=== PATIENT | male | born 1975 | race African-American/Black ===

== ENCOUNTER 2016-10-07 08:14 | Inpatient (IN) | payer OTHER ==
[2016-10-07 09:31] VITALS: BMI 29.1
--- NOTE | 2016-10-07 12:18 | HP ---
COWS - Scale Resting Pulse: 0= ND 80 or Below Sweatin= Chills/Flushing Restless Observation: 3= Extraneous Movement Pupil Size: 2= Moderately Dilated Bone or Joint Aches: 4=Acute Joint/Muscle Pain Runny Nose/ Eye Tearin= Nasal Congestion GI Upset > 30mins: 1= Stomach Cramp Tremor Observation: 2= Slight Tremor Visible Yawning Observation: 2= >3x During Session Anxiety or Irritability: 1=Feels Anxious/Irritable Goose Flesh Skin: 0=Smooth Skin COWS Score: 17 CIWA Score - CIWA Score Nausea/Vomitin-No Nausea/No Vomiting Muscle Tremors: 4-Moderate,w/Arms Extend Anxiety: 4-Mod. Anxious/Guarded Agitation: 4-Moderately Restless Paroxysmal Sweats: 1-Minimal Palms Moist Orientation: 0-Oriented Tacttile Disturbances: 3-Moderate Itch/Numb/Burn Auditory Disturbances: 0-None Visual Disturbances: 0-None Headache: 0-None Present CIWA-Ar Total Score: 16 Admission [facility] - HPI Chief Complaint: DETOX TX FOR HEROIN,XANAX AND ALCOHOL DEPENDENCE Allergies/Adverse Reactions: Allergies Allergy/AdvReac Type Severity Reaction Status Date / Time egg Allergy Intermediate Hives Verified 10/07/16 09:48 shellfish derived Allergy Intermediate Difficulty Verified 10/07/16 09:48 Breathing fish derived Allergy Difficulty Verified 10/07/16 09:48 Breathing No Known Drug Allergies Allergy Verified 10/07/16 09:48 seafood Allergy Intermediate Difficulty Uncoded 10/07/16 09:48 Breathing History of Present Illness: 41 Y/O MALE WITH A HX OF HEROIN,XANAX AND ALCOHOL DEPENDENCE SEEKING DETOX TX Exam Limitations: No Limitations - Ebola screening Have you traveled outside of the country in the last 21 days: No Have you had contact with anyone from an Ebola affected area: No Have you been sick,other than usual withdrawal symptoms: No Do you have a fever: No - Review of Systems Constitutional: Chills, Loss of Appetite, Night Sweats, Changes in sleep, Unintentional Wgt. Loss EENT: reports: Tearing, Hearing Loss (DUE TO CHILDHOOD INFECTIONS SX. ADHESIONS. ), Nose Congestion, Dental Problems (MISSING TEETH) Respiratory: reports: No Symptoms reported Cardiac: reports: No Symptoms Reported GI: reports: Constipated, Diarrhea, Nausea, Poor Appetite, Poor Fluid Intake, Vomiting, Abdominal cramping : reports: Dysuria Musculoskeletal: reports: Back Pain, Joint Pain, Muscle Pain Integumentary: reports: Bruising (IVD INJ SITE S ON BOTH ELBOWS) Neuro: reports: Headache, Seizure (DUE TO WITHDRAWAL SX), Tremors, Unsteady Gait Endocrine: reports: No Symptoms Reported Hematology: reports: No Symptoms Reported Psychiatric: reports: Orientated x3, Anxious, Depressed Other Systems: Reviewed and Negative Patient History - Patient Medical History Hx Anemia: No Hx Asthma: No Hx Chronic Obstructive Pulmonary Disease (COPD): No Hx Cancer: No Hx Cardiac Disorders: No Hx Congestive Heart Failure: No Hx Hypertension: No Hx Hypercholesterolemia: No Hx Pacemaker: No HX Cerebrovascular Accident: No Hx Seizures: Yes (8 MONTHS AGO DUE TO WITHDRAWAL SX) Hx Dementia: No Hx Diabetes: No Hx Gastrointestinal Disorders: No Hx Liver Disease: No Hx Genitourinary Disorders: No Hx Sexually Transmitted Disorders: No (DENIES) Hx Renal Disease (ESRD): No Hx Thyroid Disease: No Hx Human Immunodeficiency Virus (HIV): No (NEGATIVE HX) Hx Hepatitis C: Yes Hx Depression: Yes (WELLBUTRIN IN THE PAST) Hx Suicide Attempt: No (DENIES) Hx Bipolar Disorder: No Hx Schizophrenia: No - Patient Surgical History Past Surgical History: Yes Hx Neurologic Surgery: No Hx Cataract Extraction: No Hx Cardiac Surgery: No Hx Lung Surgery: No Hx Breast Surgery: No Hx Breast Biopsy: No Hx Abdominal Surgery: No Hx Appendectomy: No Hx Cholecystectomy: Yes ( [place] 03/2011) Hx Genitourinary Surgery: No Hx Orthopedic Surgery: No Other Surgical History: EAR SX BOTH EARS A CHILD-TUBE INSERTION Anesthesia Reaction: No - PPD History Previous Implant?: Yes Documented Results: Negative w/proof Implanted On Prior R Admission?: Yes Date: 08/18/15 Results: 0 mm PPD to be Administered?: Yes - Reproductive History Patient is a Female of Child Bearing Age (11 -55 yrs old): No (MALE) Patient : (N/A) - Smoking Cessation Smoking history: Current every day smoker Have you smoked in the past 12 months: Yes Aproximately how many cigarettes per day: 10 Cigars Per Day: 0 Hx Chewing Tobacco Use: No Initiated information on smoking cessation: Yes 'Breaking Loose' booklet given: 10/07/16 - Substance & Tx. History Hx Alcohol Use: Yes (BEER/VODKA) Hx Substance Use: Yes (HEROIN/XANAX/COCAINE) Hx Substance Use Treatment: Yes (LAST TX AT [facility] 01/28/16) - Substances Abused Heroin Route: Injection Frequency: Daily Amount used: 10 BAGS Age of first use: 30 Date of Last Use: 10/06/16 Alcohol Route: Oral Frequency: Daily Amount used: VODKA(1 PINT)/BEER(12 PK-12 OZ) Age of first use: 16 Date of Last Use: 10/06/16 Cocaine Route: Injection Frequency: Daily Amount used: 1/2 GM Age of first use: 30 Date of Last Use: 10/06/16 Alprazolam (Xanax) Route: Oral Frequency: 3-6 times per week (3-4 X/WEEK) Amount used: 2 STIX Age of first use: 35 Date of Last Use: 10/06/16 Family Disease History - Family Disease History Family Disease History: Diabetes: Father, Heart Disease: Father, Mother (ashma and emphysema), Respiratory: Mother, Other: Brother (alcoholic) Admission Physical Exam [facility] - Vital Signs Vital Signs: Vital Signs - 24 hr 10/07/16 09:23 Temperature 96.1 F L Pulse Rate 53 L Respiratory 18 Rate Blood Pressure 128/85 - Physical General Appearance: Yes: Moderate Distress, Irritable, Anxious HEENTM: Yes: EOMI, Normocephalic, ADELA, Pharynx Normal Respiratory: Yes: Chest Non-Tender, Lungs Clear, Normal Breath Sounds, No Respiratory Distress Neck: Yes: Supple, Trachea in good position Breast: Yes: Breast Exam Deferred Cardiology: Yes: Regular Rhythm, Regular Rate, S1, S2 Abdominal: Yes: Normal Bowel Sounds, Non Tender, Flat, Soft Back: Yes: Within Normal Limits Musculoskeletal: Yes: full range of Motion, Gait Steady Extremities: Yes: Normal Range of Motion, Non-Tender Neurological: Yes: pediatric psychiatrist II-XII NML intact, Fully Oriented, Alert Integumentary: Yes: Within Normal Limits, Dry, Warm, Track Lang (BOTH ELBOWS- NO SWELLING OR REDNESS) - Diagnostic (1) Seizure Current Visit: Yes Status: Active (2) Alcohol dependence with uncomplicated withdrawal Current Visit: Yes Status: Acute (3) Cocaine dependence, uncomplicated Current Visit: Yes Status: Acute (4) Hepatitis C Current Visit: Yes Status: Chronic Qualifiers: Viral hepatitis chronicity: chronic Hepatic coma status: without hepatic coma Qualified Code(s): B18.2 - Chronic viral hepatitis C (5) Opioid dependence, uncomplicated Current Visit: Yes Status: Acute (6) Methadone maintenance therapy patient Current Visit: No Status: Inactive (7) Nicotine dependence Current Visit: Yes Status: Acute Qualifiers: Nicotine product type: cigarettes Substance use status: in withdrawal Qualified Code(s): F17.213 - Nicotine dependence, cigarettes, with withdrawal (8) hearing loss both ears Current Visit: Yes Status: Chronic Comment: DUE TO CHILDHOOD EAR INFECTIONS (9) Sedative, hypnotic or anxiolytic dependence with withdrawal, uncomplicated Current Visit: Yes Status: Acute Cleared for Admission B[facility] - Detox or Rehab [facility] Level of Care: Medically Managed Detox Regimen/Protocol: Methadone/Valium [facility] Breath Alcohol Content Breath Alcohol Content: 0 Urine Drug Screen - Results Drug Screen Negative: No Urine Drug Screen Results: ALEXEY-Cocaine, OPI-Opiates, BZO-Benzodiazepines
[2016-10-07] MEDS ORDERED: MENTHOL/PHENOL 1 EACH UD MM PRN (12:30)
[2016-10-07] MEDS ORDERED: LOPERAMIDE HCL 2 MG CAPSULE PO PRN (12:30)
[2016-10-07] MEDS ORDERED: MAG HYDROX/AL HYDROX/SIMETH 30 ML UNIT-DOSE CUP PO PRN (12:30)
[2016-10-07] MEDS ORDERED: MAGNESIUM HYDROX 2400MG/30ML ORAL SUSPENSION 30 ML CUP PO PRN (12:30)
[2016-10-07] MEDS ORDERED: P-EPHED 60MG/TRIPROLIDI 2.5MG TABLET PO PRN (12:30)
[2016-10-07] MEDS ORDERED: MAGNESIUM CITRATE 300 ML BOTTLE PO PRN (12:30)
[2016-10-07] MEDS ORDERED: guaiFENesin/D-METHORPHAN HB 10 ML UNIT-DOSE CUPS PO PRN (12:30)
[2016-10-07] MEDS ORDERED: METHADONE HCL 10 MG TABLET (FOR DETOX USE ONLY) PO ONE ×2 (12:30→23:00)
[2016-10-07] MEDS ORDERED: diazePAM 5 MG TABLET PO ONE (12:35)
[2016-10-07] MEDS: NICOTINE 14 MG/24 HOURS TOPICAL PATCH TD SCH (13:32)
[2016-10-07] MEDS: diazePAM 5 MG TABLET PO SCH ×2 (15:00→22:27)
[2016-10-07 17:15] LABS: MCH 27.9 pg (25.7-33.7); MCHC 32.8 g/dl (32.0-35.9); MEAN PLT VOLUME 7.9 fl (7.5-11.1); PLATELET COUNT 217 K/MM3 (134-434); RDW 14.3 % (11.9-15.9); WHITE BLOOD COUNT 4.3 K/mm3 (4.0-10.0)
[2016-10-07 17:48] LABS: ALBUMIN 3.9 g/dl (3.4-5.0); ANION GAP 6 (8-16); CALCIUM 8.8 mg/dL (8.5-10.1); CO2 29 mmol/L (21-32); GLUCOSE,RANDOM 100 mg/dL (74-106); SGOT/AST 57 U/L (15-37); SGPT/ALT 68 U/L (12-78); TOT PROT 7.3 g/dl (6.4-8.2)
[2016-10-07 17:49] LABS: ALK PHOS 81 U/L (45-117)
--- NOTE | 2016-10-07 18:06 | CONSULT ---
[facility] Psychiatric Consult - Data Date of interview: 10/07/16 Admission source: [facility] Identifying data: Another admission to [facility] for this 41 y/o male seeking detox treatment on for heroin,cocaine and benzodiazepine dependence.Patient is ,a father of two,domiciled and currently employed. Substance Abuse History: Extensive history of substance abuse.Patient admits to abusing heroin since age 30 (10 bags/day via IV route),cocaine (1/2 gm/day via IV),xanax (2 sticks/day since age 35 ; 1-3 times a week ) and alcohol (age 16; one pint of vodka/2 x 6 packs of beer/day).Substances last used on 10/06/16. Medical History: Significant for hepatitis C,hearing loss (since childhood), dyslipidemia,withdrawal seizures and cholecystectomy (2011). Psychiatric History: Patient denies history of psychiatric hospitalizations but he admits to past OPD care with wellbutrin (which he found extremely helpful) .He stopped using trazodone due to occurrence of priapism.No current contact with OPD care providers and chronic reliance on his primary care physician for medications refills.Mr Stanton denies history of suicide attempts.Questionable historian. Physical/Sexual Abuse/Trauma History: Patient denies. Additional Comment: Urine Drug Screen Results: ALEXEY-Cocaine, OPI-Opiates, BZO- Benzodiazepines as per [facility] report.Noted. Mental Status Exam - Mental Status Exam Alert and Oriented to: Time, Place, Person Cognitive Function: Good Patient Appearance: Well Groomed Mood: Hopeful, Euthymic Affect: Appropriate, Normal Range Patient Behavior: Appropriate, Cooperative Speech Pattern: Clear, Appropriate Voice Loudness: Normal Thought Process: Intact, Goal Oriented Thought Disorder: Not Present Hallucinations: Denies Suicidal Ideation: Denies Homicidal Ideation: Denies Insight/Judgement: Poor Sleep: Poorly, Difficulty falling asleep Appetite: Good Muscle strength/Tone: Normal Gait/Station: Normal Psychiatric Findings - Problem List ([place] 1, 2,3) (1) Alcohol dependence with uncomplicated withdrawal Current Visit: Yes Status: Acute (2) Cocaine dependence, uncomplicated Current Visit: Yes Status: Acute (3) Nicotine dependence Current Visit: Yes Status: Acute Qualifiers: Nicotine product type: cigarettes Substance use status: in withdrawal Qualified Code(s): F17.213 - Nicotine dependence, cigarettes, with withdrawal (4) Sedative, hypnotic or anxiolytic dependence with withdrawal, uncomplicated Current Visit: Yes Status: Acute (5) Opioid dependence with withdrawal Current Visit: Yes Status: Acute (6) Substance induced mood disorder Current Visit: Yes Status: Acute (7) GERD (gastroesophageal reflux disease) Current Visit: Yes Status: Chronic Qualifiers: Esophagitis presence: without esophagitis Qualified Code(s): K21.9 - Gastro-esophageal reflux disease without esophagitis (8) Obesity Current Visit: Yes Status: Chronic Comment: succeeded in losing 12lb during this stay, intentionally (9) Insomnia Current Visit: Yes Status: Acute - Initial Treatment Plan Initial Treatment Plan: Psychoeducation.Detoxification in progress.Previous records reviewed.Medications : ambien 10 mg po hs + wellbutrin XL 150 mg po daily.Side effects/benefits discussed with patient.Made aware of risk of seizures and parasomnias.He consents to follow this plan of care.Observation.
[2016-10-07] MEDS: diazePAM 5 MG TABLET PO PRN (18:38)
[2016-10-07] MEDS: IBUPROFEN 400 MG TABLET (FP) PO PRN (18:39)
[2016-10-07 18:47] LABS: HIV 1 & 2 AB NEGATIVE; HIV 1 AGp24 NEGATIVE
[2016-10-07] MEDS: THIAMINE HCL 100 MG TABLET (FP) PO SCH (22:27)
[2016-10-07] MEDS: ZOLPIDEM TARTRATE 10 MG TABLET (PARK CARE ONLY) PO PRN (22:28)
[2016-10-07 23:18] LABS: URINE APPEARANCE CLEAR; URINE BILIRUBIN NEGATIVE (NEGATIVE); URINE BLOOD NEGATIVE (NEGATIVE); URINE COLOR AMBER; URINE GLUCOSE (UA) NEGATIVE (NEGATIVE); URINE KETONE TRACE (NEGATIVE); URINE LEUK ESTERASE NEGATIVE (NEGATIVE); URINE NITRITE NEGATIVE (NEGATIVE); URINE PROTEIN NEGATIVE (NEGATIVE); URINE UROBILINOGEN NEGATIVE mg/dL (0.2-1.0)
[2016-10-08] MEDS: diazePAM 5 MG TABLET PO PRN ×4 (03:09→17:12)
[2016-10-08] MEDS: diazePAM 5 MG TABLET PO SCH ×3 (05:55→22:08)
[2016-10-08] MEDS: ACETAMINOPHEN 325 MG TABLET (FP) PO PRN (07:40)
[2016-10-08] MEDS ORDERED: METHADONE HCL 10 MG TABLET (FOR DETOX USE ONLY) PO SCH (10:00)
--- NOTE | 2016-10-08 10:24 | PN ---
S CIWA - CIWA Score Nausea/Vomitin Muscle Tremors: 3 Anxiety: 3 Agitation: 3 Paroxysmal Sweats: 1-Minimal Palms Moist Orientation: 0-Oriented Tacttile Disturbances: 1-Very Mild Itch/Numbness Auditory Disturbances: 1-Very Mild Visual Disturbances: 1-Very Mild Sensitivity Headache: 2-Mild CIWA-Ar Total Score: 18 BHS COWS - Scale Resting Pulse: 0= [place] 80 or Below Sweatin= Chills/Flushing Restless Observation: 3= Extraneous Movement Pupil Size: 2= Moderately Dilated Bone or Joint Aches: 2= Severe Diffuse Aches Runny Nose/ Eye Tearin= Runny Nose/Eyes GI Upset > 30mins: 2= Nausea/Diarrhea Tremor Observation of Outstretched Hands: 2= Slight Tremor Visible Yawning Observation: 1= 1-2x During Session Anxiety or Irritability: 2=Irritable/Anxious Goose Flesh Skin: 0=Smooth Skin COWS Score: 17 S Progress Note (SOAP) Subjective: ALERT,IRRITABLE,ANXIOUS,INTERRUPTED SLEEP,TREMOR,PAIN IN THE BODY AND BACK Objective: 10/08/16 10:20 Vital Signs Temperature 96.1 F L 10/08/16 10:00 Pulse Rate 42 L 10/08/16 10:00 Respiratory Rate 16 10/08/16 10:00 Blood Pressure 126/74 10/08/16 10:00 O2 Sat by Pulse Oximetry (%) EKG SINUS BRADYCARDIA 42/MIN LVH NO CHEST PAIN,NO SOB,NO DIZZINESS Laboratory Last Values WBC 4.3 K/mm3 (4.0-10.0) 10/07/16 15:00 RBC 4.66 M/mm3 (4.00-5.60) 10/07/16 15:00 Hgb 13.0 GM/dL (11.7-16.9) 10/07/16 15:00 Hct 39.6 % (35.4-49) 10/07/16 15:00 MCV 85.0 fl (80-96) 10/07/16 15:00 MCH 27.9 pg (25.7-33.7) 10/07/16 15:00 MCHC 32.8 g/dl (32.0-35.9) 10/07/16 15:00 RDW 14.3 % (11.9-15.9) D 10/07/16 15:00 Plt Count 217 K/MM3 (134-434) D 10/07/16 15:00 MPV 7.9 fl (7.5-11.1) 10/07/16 15:00 Sodium 139 mmol/L (136-145) 10/07/16 15:00 Potassium 4.3 mmol/L (3.5-5.1) 10/07/16 15:00 Chloride 104 mmol/L (98-107) 10/07/16 15:00 Carbon Dioxide 29 mmol/L (21-32) 10/07/16 15:00 Anion Gap 6 (8-16) L 10/07/16 15:00 BUN 20 mg/dL (7-18) H D 10/07/16 15:00 Creatinine 1.0 mg/dL (0.7-1.3) 10/07/16 15:00 Creat Clearance w eGFR > 60 (>60) 10/07/16 15:00 Random Glucose 100 mg/dL (74-106) 10/07/16 15:00 Calcium 8.8 mg/dL (8.5-10.1) 10/07/16 15:00 Total Bilirubin 1.0 mg/dL (0.2-1.0) D 10/07/16 15:00 AST 57 U/L (15-37) H D 10/07/16 15:00 ALT 68 U/L (12-78) D 10/07/16 15:00 Alkaline Phosphatase 81 U/L (45-117) D 10/07/16 15:00 Total Protein 7.3 g/dl (6.4-8.2) 10/07/16 15:00 Albumin 3.9 g/dl (3.4-5.0) 10/07/16 15:00 Urine Color [place] 10/07/16 22:00 Urine Appearance Clear 10/07/16 22:00 Urine pH 5.0 (5.0-8.0) 10/07/16 22:[address] 1.025 (1.005-1.025) 10/07/16 22:00 Urine Protein Negative (NEGATIVE) 10/07/16 22:00 Urine Glucose (UA) Negative (NEGATIVE) 10/07/16 22:00 Urine Ketones Trace (NEGATIVE) H 10/07/16 22:00 Urine Blood Negative (NEGATIVE) 10/07/16 22:00 Urine Nitrite Negative (NEGATIVE) 10/07/16 22:00 Urine Bilirubin Negative (NEGATIVE) 10/07/16 22:00 Urine Urobilinogen Negative mg/dL (0.2-1.0) 10/07/16 22:00 Ur Leukocyte Esterase Negative (NEGATIVE) 10/07/16 22:00 RPR Titer Nonreactive (NONREACTIVE) 10/07/16 15:00 HIV 1&2 Antibody Screen Negative 10/07/16 14:00 HIV P24 Antigen Negative 10/07/16 14:00 Assessment: 10/08/16 10:24 WITHDRAWAL SYMPTOM Plan: CONTINUE DETOX
[2016-10-08] MEDS: PRENATAL VITAMINS W/ FOLIC ACID TABLET (FP) PO SCH (10:42)
[2016-10-08] MEDS: NICOTINE 14 MG/24 HOURS TOPICAL PATCH TD SCH (10:43)
--- NOTE | 2016-10-08 16:39 | EKG ---
Test Reason : Blood Pressure : / mmHG Vent. Rate : 042 BPM Atrial Rate : 042 BPM P-R Int : 166 ms QRS Dur : 096 ms QT Int : 500 ms P-R-T Axes : 049 037 043 degrees QTc Int : 417 ms MARKED SINUS BRADYCARDIA MINIMAL VOLTAGE CRITERIA FOR LVH, MAY BE NORMAL VARIANT ABNORMAL ECG NO PREVIOUS ECGS AVAILABLE Confirmed by RAUL SALCEDO MD ([id number]) on 10/08/2016 4:39:15 PM Referred By: Confirmed By:RAUL SALCEDO MD
[2016-10-08] MEDS: IBUPROFEN 400 MG TABLET (FP) PO PRN (17:11)
[2016-10-08] MEDS: NICOTINE POLACRILEX 2 MG GUM BUC PRN (17:14)
[2016-10-08] MEDS: THIAMINE HCL 100 MG TABLET (FP) PO SCH (22:08)
[2016-10-08] MEDS: ZOLPIDEM TARTRATE 10 MG TABLET (PARK CARE ONLY) PO PRN (22:10)
[2016-10-09] MEDS: diazePAM 5 MG TABLET PO PRN ×4 (00:26→16:56)
[2016-10-09] MEDS: IBUPROFEN 400 MG TABLET (FP) PO PRN (00:26)
[2016-10-09] MEDS: ACETAMINOPHEN 325 MG TABLET (FP) PO PRN (05:37)
[2016-10-09] MEDS: diazePAM 5 MG TABLET PO SCH ×2 (10:56→22:39)
[2016-10-09] MEDS: PRENATAL VITAMINS W/ FOLIC ACID TABLET (FP) PO SCH (10:56)
--- NOTE | 2016-10-09 10:56 | PN ---
[facility] CIWA - CIWA Score Nausea/Vomitin Muscle Tremors: 3 Anxiety: 3 Agitation: 2 Paroxysmal Sweats: 1-Minimal Palms Moist Orientation: 0-Oriented Tacttile Disturbances: 1-Very Mild Itch/Numbness Auditory Disturbances: 1-Very Mild Visual Disturbances: 1-Very Mild Sensitivity Headache: 2-Mild CIWA-Ar Total Score: 17 BHS COWS - Scale Resting Pulse: 0= [place] 80 or Below Sweatin= Chills/Flushing Restless Observation: 3= Extraneous Movement Pupil Size: 1= Pupils >than Normal Bone or Joint Aches: 2= Severe Diffuse Aches Runny Nose/ Eye Tearin= Runny Nose/Eyes GI Upset > 30mins: 2= Nausea/Diarrhea Tremor Observation of Outstretched Hands: 2= Slight Tremor Visible Yawning Observation: 1= 1-2x During Session Anxiety or Irritability: 2=Irritable/Anxious Goose Flesh Skin: 0=Smooth Skin COWS Score: 16 S Progress Note (SOAP) Subjective: ALERT,IRRITABLE,ANXIOUS,INTERRUPTED SLEEP,TREMOR,PAIN IN THE BACK Objective: 10/09/16 10:54 Vital Signs Temperature 96.3 F L 10/09/16 10:00 Pulse Rate 45 L 10/09/16 10:00 Respiratory Rate 20 10/09/16 10:00 Blood Pressure 121/69 10/09/16 10:00 O2 Sat by Pulse Oximetry (%) Assessment: 10/09/16 10:54 WITHDRAWAL SYMPTOM Plan: CONTINUE DETOX,FLEXERIL 10 MGS PO TID ,MOTRIN 600 MGS PO PRN FOR PAIN Q 6 HRS
[2016-10-09] MEDS: METHADONE HCL 5 MG TABLET (FOR DETOX USE ONLY) PO SCH (10:57)
[2016-10-09] MEDS: NICOTINE 14 MG/24 HOURS TOPICAL PATCH TD SCH (10:57)
[2016-10-09] MEDS: CYCLOBENZAPRINE HCL 10 MG TABLET (FP) PO PRN ×2 (12:59→22:39)
[2016-10-09] MEDS: IBUPROFEN 600 MG TABLET (FP) PO PRN (16:55)
[2016-10-09] MEDS: NICOTINE POLACRILEX 2 MG GUM BUC PRN (16:56)
[2016-10-09] MEDS: THIAMINE HCL 100 MG TABLET (FP) PO SCH (22:39)
[2016-10-09] MEDS: ZOLPIDEM TARTRATE 10 MG TABLET (PARK CARE ONLY) PO PRN (22:39)
[2016-10-10] MEDS: ACETAMINOPHEN 325 MG TABLET (FP) PO PRN (00:47)
[2016-10-10] MEDS: diazePAM 5 MG TABLET PO PRN ×3 (00:50→09:30)
[2016-10-10] MEDS: IBUPROFEN 600 MG TABLET (FP) PO PRN (08:59)
[2016-10-10] MEDS: CYCLOBENZAPRINE HCL 10 MG TABLET (FP) PO PRN (09:00)
[2016-10-10] MEDS: PRENATAL VITAMINS W/ FOLIC ACID TABLET (FP) PO SCH (10:54)
[2016-10-10] MEDS: NICOTINE 14 MG/24 HOURS TOPICAL PATCH TD SCH (10:54)
[2016-10-10] MEDS: METHADONE HCL 5 MG TABLET (FOR DETOX USE ONLY) PO SCH (10:54)
--- NOTE | 2016-10-10 11:41 | PN ---
BHS Progress Note (SOAP) Subjective: alert,irritable,anxious,interrupted sleep,pain in the body and back,constipated Objective: 10/10/16 11:40 Vital Signs Temperature 97.5 F L 10/10/16 09:47 Pulse Rate 51 L 10/10/16 09:47 Respiratory Rate 18 10/10/16 09:47 Blood Pressure 136/80 10/10/16 09:47 O2 Sat by Pulse Oximetry (%) Assessment: 10/10/16 11:40 withdrawal symptom Plan: continue detox
[2016-10-10] MEDS: diazePAM 5 MG TABLET PO SCH ×2 (11:42→22:29)
[2016-10-10] MEDS: NICOTINE POLACRILEX 2 MG GUM BUC PRN (11:45)
[2016-10-10] MEDS: THIAMINE HCL 100 MG TABLET (FP) PO SCH (22:29)
[2016-10-10] MEDS: diphenhydrAMINE HCL 50 MG CAPSULE PO PRN (22:30)
[2016-10-11] MEDS ORDERED: hydrOXYzine PAMOATE 50 MG CAPSULE (FP) PO PRN (09:44)
[2016-10-11] MEDS ORDERED: METHADONE HCL 10 MG TABLET (FOR DETOX USE ONLY) PO SCH (10:00)
[2016-10-11] MEDS ORDERED: diazePAM 5 MG TABLET PO SCH (10:00)
--- NOTE | 2016-10-11 10:32 | PN ---
S Progress Note (SOAP) Subjective: ALERT,IRRITABLE,,ANXIOUS,INTERRUPTED SLEEP Objective: 10/11/16 10:31 Vital Signs Temperature 96.3 F L 10/11/16 09:55 Pulse Rate 63 10/11/16 09:55 Respiratory Rate 18 10/11/16 09:55 Blood Pressure 120/71 10/11/16 09:55 O2 Sat by Pulse Oximetry (%) Assessment: 10/11/16 10:31 WITHDRAWAL SYMPTOM Plan: CONTINUE DETOX,DISCHARGE IN AM
[2016-10-11] MEDS: PRENATAL VITAMINS W/ FOLIC ACID TABLET (FP) PO SCH (10:42)
[2016-10-11] MEDS: NICOTINE 14 MG/24 HOURS TOPICAL PATCH TD SCH (10:42)
[2016-10-11] MEDS: CYCLOBENZAPRINE HCL 10 MG TABLET (FP) PO PRN ×2 (10:42→22:24)
[2016-10-11] MEDS: diphenhydrAMINE HCL 50 MG CAPSULE PO PRN (22:24)
[2016-10-11] MEDS: THIAMINE HCL 100 MG TABLET (FP) PO SCH (22:24)
[2016-10-12] MEDS ORDERED: METHADONE HCL 5 MG TABLET (FOR DETOX USE ONLY) PO SCH (06:00)
[2016-10-12 06:13] VITALS: TEMP 97.7
--- NOTE | 2016-10-12 08:17 | DS ---
[facility] Detox Discharge Summary Admission Date: 10/07/16 Discharge Date: 10/12/16 - History Present History: Cocaine Dependence, Opioid Dependence, Sedative Dependence Additional Comments: FOLLOW UP WITH AFTER CARE PROGRAM ,[facility] Pertinent Past History: HEPATITIS C NICOTINE DEPENDENCE HEARING LOSS BOTH - Physical Exam Results Vital Signs: Vital Signs Temperature 97.7 F 10/12/16 06:13 Pulse Rate 67 10/12/16 06:13 Respiratory Rate 18 10/12/16 06:13 Blood Pressure 121/68 10/12/16 06:13 O2 Sat by Pulse Oximetry (%) Pertinent Admission Physical Exam Findings: WITHDRAWAL SYMPTOM - Treatment Hospital Course: Detox Protocol Followed, Detoxed Safely, Responded well, Discharged Condition Good, Rehab Referral Accepted Patient has Accepted a Rehab Referral to: [facility] - Medication Discharge Medications: Ambulatory Orders Bupropion HCl [Wellbutrin Xl -] 150 mg PO DAILY #30 tab.sr.24h 08/19/15 Trazodone HCl [Desyrel -] 100 mg PO HS #30 tablet 08/19/15 - Diagnosis (1) Seizure Current Visit: Yes Status: Active (2) Cocaine dependence, uncomplicated Current Visit: Yes Status: Acute (3) Opioid dependence with withdrawal Current Visit: Yes Status: Acute (4) Sedative, hypnotic or anxiolytic dependence with withdrawal, uncomplicated Current Visit: Yes Status: Acute (5) Hepatitis C Current Visit: Yes Status: Chronic Qualifiers: Viral hepatitis chronicity: chronic Hepatic coma status: without hepatic coma Qualified Code(s): B18.2 - Chronic viral hepatitis C (6) hearing loss both ears Current Visit: Yes Status: Chronic (7) Syncope Current Visit: No Status: Active (8) Insomnia Current Visit: Yes Status: Acute - AMA Did Patient Leave Against Medical Advice: No
[2016-10-12 10:03] VITALS: BP 108/64; PULSE 69
[2016-10-12] MEDS: PRENATAL VITAMINS W/ FOLIC ACID TABLET (FP) PO SCH (10:57)
[2016-10-12] MEDS: NICOTINE 14 MG/24 HOURS TOPICAL PATCH TD SCH (10:58)
== END 2016-10-12 12:04 | disposition other institution (70) | DRG 773 ==
LOC: YASAS 08:14 → Y6N 12:17
PROVIDERS: ADMIT Internal Medicine Addiction Medicine; ATTEND Internal Medicine Addiction Medicine
PROC: HZ2ZZZZ Detoxification Services for Substance Abuse Treatment (ICD-10-PCS; principal; 2016-10-12)
DX: F11.23 Opioid dependence with withdrawal (principal); F13.230 Sedative, hypnotic or anxiolytic dependence with withdrawal, uncomplicated; F10.230 Alcohol dependence with withdrawal, uncomplicated; F14.20 Cocaine dependence, uncomplicated; F19.24 Other psychoactive substance dependence with psychoactive substance-induced mood disorder; B18.2 Chronic viral hepatitis C; G47.00 Insomnia, unspecified; R56.9 Unspecified convulsions; K21.9 Gastro-esophageal reflux disease without esophagitis; R55 Syncope and collapse; H91.8X3 Other specified hearing loss, bilateral; Z59.0 Homelessness
CPT/HCPCS: 36415; 80053; 81003; 85027; 86593; 87389; 93005; 93010

== ENCOUNTER 2016-10-12 12:06 | Inpatient (IN) | payer OTHER ==
[2016-10-12] MEDS ORDERED: guaiFENesin/D-METHORPHAN HB 10 ML UNIT-DOSE CUPS PO PRN (13:55)
[2016-10-12] MEDS ORDERED: P-EPHED 60MG/TRIPROLIDI 2.5MG TABLET PO PRN (13:55)
[2016-10-12] MEDS ORDERED: ACETAMINOPHEN 325 MG TABLET (FP) PO PRN (13:55)
[2016-10-12] MEDS ORDERED: hydrOXYzine PAMOATE 50 MG CAPSULE (FP) PO PRN (13:55)
[2016-10-12] MEDS ORDERED: MAGNESIUM HYDROX 2400MG/30ML ORAL SUSPENSION 30 ML CUP PO PRN (13:55)
[2016-10-12] MEDS ORDERED: MENTHOL/PHENOL 1 EACH UD MM PRN (13:55)
[2016-10-12] MEDS ORDERED: LOPERAMIDE HCL 2 MG CAPSULE PO PRN (13:55)
[2016-10-12] MEDS ORDERED: MAG HYDROX/AL HYDROX/SIMETH 30 ML UNIT-DOSE CUP PO PRN (13:55)
[2016-10-12] MEDS ORDERED: MAGNESIUM CITRATE 300 ML BOTTLE PO PRN (13:55)
[2016-10-12] MEDS ORDERED: IBUPROFEN 400 MG TABLET (FP) PO PRN (13:55)
--- NOTE | 2016-10-12 14:24 | HP ---
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 Psychiatric History: Reports that approximately 7 years ago, He was brought to [facility] ED due to Cocaine-induced psychotic episode. He was diagnosed with Bipolar Disorder and started on Seroquel and Trazadone. However due to his addiction, he was never consistent with treatment. He describes experiencing hypomanic or manic episode with agitation fast speech, racing thoughts, AH, reckless behavior in the context of drug use. Denies history of previous psychiatric hospitalization or suicidal attempt. He reports treatment with Wellbutrin XL and Trazadone in the past but claims he has not taking then in a year. Reports experiencing priapism wiyh Trazadone. He saw Dr Chopra on 10/07/16 while in detox and he was prescribed WellbutrinXL 150 mg po daily and Ambien 10 mg po HS. He wants to continue these medications during his stay in rehab Physical/Sexual Abuse/Trauma History: Denies history of emotional, physical or sexual abuse as well as DV relationship. No service Additional Comment: Reports history of multiple misdemeanor arrests. No probation currently Vital Signs: Vital Signs - 24 hr 10/12/16 12:11 Temperature 98.5 F Pulse Rate 69 Respiratory 18 Rate Blood Pressure 112/72 Allergies/Adverse Reactions: Allergies Allergy/AdvReac Type Severity Reaction Status Date / Time egg Allergy Intermediate Hives Verified 10/12/16 12:11 shellfish derived Allergy Intermediate Difficulty Verified 10/12/16 12:11 Breathing fish derived Allergy Difficulty Verified 10/12/16 12:11 Breathing No Known Drug Allergies Allergy Verified 10/12/16 12:11 seafood Allergy Intermediate Difficulty Uncoded 10/12/16 12:11 Breathing Date of last physical exam: 10/07/16 Concur with the findings of this exam: Yes - Substance Abuse/Tx History Hx Alcohol Use: Yes Hx Substance Use: Yes Substance Use Type: Alcohol (Started drinking alcohol at age 16, consumes one pint of vodka & 12pk)12oz) of beer daily. Last drink on 10/06/16), Cocaine ( Started using cocaine at age 30, consumes half a gram daily. Last used on ), Heroin (Started using heroin at age 30, consumes 10 bags daily. Last used on 10/06/16), Tranquilizers (Started using xanax at agec35, consumes 2 sticks daily. Last used on 10/06/16) Hx Substance Use Treatment: Yes (11 previous inpt detox & 5 inpt rehab @ [facility]) - Admission Criteria Previous failed treatment: Yes Poor recovery environment: Yes Comorbidities: Yes Lacks judgement: Yes Mental Status Exam - Mental Status Exam Alert and Oriented to: Time, Place, Person Cognitive Function: Fair Patient Appearance: Well Groomed Mood: Depressed Affect: Appropriate Patient Behavior: Cooperative Speech Pattern: Clear Voice Loudness: Normal Thought Process: Intact, Goal Oriented Thought Disorder: Not Present Hallucinations: Denies Suicidal Ideation: Denies Homicidal Ideation: Denies Insight/Judgement: Fair Sleep: Poorly Appetite: Good Muscle strength/Tone: Normal Gait/Station: Normal Psychiatric Findings - Problem List ([place] 1, 2,3) (1) Alcohol dependence Current Visit: No Status: Chronic (2) Opioid dependence Current Visit: No Status: Chronic (3) Bipolar II disorder with rapid cycling Current Visit: No Status: Acute (4) Sedative dependence Current Visit: No Status: Chronic (5) Nicotine dependence Current Visit: No Status: Acute Qualifiers: Nicotine product type: cigarettes Substance use status: in withdrawal Qualified Code(s): F17.213 - Nicotine dependence, cigarettes, with withdrawal (6) Mood disorder Current Visit: Yes Status: Acute (7) Substance induced mood disorder Current Visit: No Status: Ruled-out (8) Bipolar II disorder Current Visit: No Status: Ruled-out (9) GERD (gastroesophageal reflux disease) Current Visit: No Status: Chronic Qualifiers: Esophagitis presence: without esophagitis Qualified Code(s): K21.9 - Gastro-esophageal reflux disease without esophagitis (10) Hepatitis C Current Visit: No Status: Chronic Qualifiers: Viral hepatitis chronicity: chronic Hepatic coma status: without hepatic coma Qualified Code(s): B18.2 - Chronic viral hepatitis C (11) Obesity Current Visit: No Status: Chronic Comment: succeeded in losing 12lb during this stay, intentionally (12) hearing loss both ears Current Visit: No Status: Chronic Comment: DUE TO CHILDHOOD EAR INFECTIONS - Initial Treatment Plan Initial Treatment Plan: 1) Continue Wellbutrin XL 150 mg po daily. 2) Start Belsomra 10 mg po HS prn for insomnia. 3) Monitor progress
[2016-10-12] MEDS: diphenhydrAMINE HCL 50 MG CAPSULE PO PRN (21:28)
[2016-10-12] MEDS: THIAMINE HCL 100 MG TABLET (FP) PO SCH (21:29)
[2016-10-12] MEDS ORDERED: SUVOREXANT 10 MG TABLET PO PRN (22:00)
[2016-10-13] MEDS: PRENATAL VITAMINS W/ FOLIC ACID TABLET (FP) PO SCH (09:41)
[2016-10-13] MEDS: THIAMINE HCL 100 MG TABLET (FP) PO SCH (21:48)
[2016-10-13] MEDS: diphenhydrAMINE HCL 50 MG CAPSULE PO PRN (21:49)
[2016-10-14 06:46] VITALS: BP 121/69; PULSE 64; TEMP 97.7
[2016-10-14] MEDS: PRENATAL VITAMINS W/ FOLIC ACID TABLET (FP) PO SCH (09:48)
--- NOTE | 2016-10-14 14:50 | PN ---
Psychiatric Progress Note Vital Signs: Vital Signs Period Temp Pulse Resp BP Sys/Torres Pulse Ox Last 24 Hr 97.7 F 64 18-18 121/69 Date of Session: 10/14/16 Chief Complaint:: AMA Discharge Note HPI: Patient addressing Alcohol, Opoid, Cocaine and Sedative Dependence comorbid with Nicotine Dependence and Mood Disorder ROS: GERD, Hep C, Obesity, Hearing loss both ears Current Medications: Active Medications Generic Name Dose Route Start Last Admin Trade Name Freq PRN Reason Stop Dose Admin Acetaminophen 650 mg 10/12/16 13:55 Tylenol - PO Q4H PRN FEVER OR PAIN Al Hydroxide/Mg Hydroxide 30 ml 10/12/16 13:55 10/12/16 21:29 Mylanta Oral Suspension - PO 30 ml Q6H PRN Administration DYSPEPSIA Bupropion HCl 150 mg 10/13/16 10:00 10/14/16 09:48 Wellbutrin Xl - PO 150 mg DAILY JONNY Administration Diphenhydramine HCl 50 mg 10/12/16 13:55 10/13/16 21:49 Benadryl - PO 50 mg HSMR1 PRN Administration FOR ITCHING Eucalyptus/Menthol/Phenol/Sorbitol 1 each 10/12/16 13:55 Cepastat Lozenge - MM Q4H PRN SORE THROAT Guaifenesin 10 ml 10/12/16 13:55 10/14/16 09:49 Robitussin Dm - PO 10 ml Q6H PRN Administration COUGH Hydroxyzine Pamoate 50 mg 10/12/16 13:55 Vistaril - PO Q4H PRN AGITATION Ibuprofen 400 mg 10/12/16 13:55 Motrin - PO Q6H PRN PAIN Loperamide HCl 4 mg 10/12/16 13:55 Imodium - PO Q6H PRN DIARRHEA Magnesium Hydroxide 30 ml 10/12/16 13:55 Milk Of Magnesia - PO DAILY PRN CONSTIPATION Multivit/Folic Acid/Iron 1 tab 10/13/16 10:00 10/14/16 09:48 Vitamins (Sjr) - PO 1 tab DAILY JONNY Administration Pseudoephedrine/Triprolidine 1 combo 10/12/16 13:55 Actifed - PO TID PRN NASAL CONGESTION Thiamine HCl 100 mg 10/12/16 22:00 10/13/16 21:48 Vitamin B1 - PO 100 mg HS JONNY Administration Current Side Effect: No Lab tests ordered: Yes Lab tests reviewed: Yes Provider note:: Patient has not completed this program. He requests to leave against medical advice because he does not want to lose his job. 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 Claims that his boss has been leaving messages on his cell phone. He was counseled about the right way to address his addiction issues and keeping his job at the same time. He is determined to leave despite encouragement to stay and complete the program. He is stable for discharge against medical advice Total face to face time:: 25 Mental Status Exam - Mental Status Exam Alert and Oriented to: Time, Place, Person Cognitive Function: Fair Patient Appearance: Well Groomed Mood: Hopeful, Euthymic Affect: Appropriate Patient Behavior: Cooperative Speech Pattern: Clear Voice Loudness: Normal Thought Process: Intact, Goal Oriented Thought Disorder: Not Present Hallucinations: Denies Suicidal Ideation: Denies Homicidal Ideation: Denies Insight/Judgement: Fair Sleep: Fair Appetite: Good Muscle strength/Tone: Normal Gait/Station: Normal Psychiatric Treatment Plan - Problem List (1) Alcohol dependence Current Visit: No (2) Opioid dependence Current Visit: No (3) Bipolar II disorder with rapid cycling Current Visit: No (4) Sedative dependence Current Visit: No (5) Nicotine dependence Current Visit: No Qualifiers: Nicotine product type: cigarettes Substance use status: in withdrawal Qualified Code(s): F17.213 - Nicotine dependence, cigarettes, with withdrawal (6) Mood disorder Current Visit: Yes (7) Substance induced mood disorder Current Visit: No (8) Bipolar II disorder Current Visit: No (9) GERD (gastroesophageal reflux disease) Current Visit: No Qualifiers: Esophagitis presence: without esophagitis Qualified Code(s): K21.9 - Gastro-esophageal reflux disease without esophagitis (10) Hepatitis C Current Visit: No Qualifiers: Viral hepatitis chronicity: chronic Hepatic coma status: without hepatic coma Qualified Code(s): B18.2 - Chronic viral hepatitis C (11) Obesity Current Visit: No Comment: succeeded in losing 12lb during this stay, intentionally (12) hearing loss both ears Current Visit: No Comment: DUE TO CHILDHOOD EAR INFECTIONS Initial treatment plan: Patient is leaving [place]
== END 2016-10-14 15:11 | disposition left against medical advice (07) | DRG 770 ==
LOC: YASAS 12:06 → Y3W 12:07
PROVIDERS: ADMIT Psychiatry & Neurology Psychiatry; ATTEND Psychiatry & Neurology Psychiatry
PROC: HZ42ZZZ Group Counseling for Substance Abuse Treatment, Cognitive-Behavioral (ICD-10-PCS; principal; 2016-10-12)
DX: F11.20 Opioid dependence, uncomplicated (principal); F13.20 Sedative, hypnotic or anxiolytic dependence, uncomplicated; F10.20 Alcohol dependence, uncomplicated; F17.213 Nicotine dependence, cigarettes, with withdrawal; F39 Unspecified mood [affective] disorder; F31.81 Bipolar II disorder; F19.24 Other psychoactive substance dependence with psychoactive substance-induced mood disorder; K21.9 Gastro-esophageal reflux disease without esophagitis; B18.2 Chronic viral hepatitis C; E66.9 Obesity, unspecified; Z68.30 Body mass index [BMI] 30.0-30.9, adult; H91.93 Unspecified hearing loss, bilateral; Z86.69 Personal history of other diseases of the nervous system and sense organs; Z91.012 Allergy to eggs; Z91.013 Allergy to seafood; Z59.0 Homelessness

== ENCOUNTER 2016-12-04 23:34 | Inpatient (IN) | payer OTHER ==
[2016-12-04 23:48] VITALS: BMI 29.8
--- NOTE | 2016-12-04 23:56 | HP ---
COWS - Scale Resting Pulse: 0= MD 80 or Below Sweatin=Flushed/Facial Moisture Restless Observation: 5= Unable to Sit Still Pupil Size: 1= Pupils >than Normal Bone or Joint Aches: 4=Acute Joint/Muscle Pain Runny Nose/ Eye Tearin= Runny Nose/Eyes GI Upset > 30mins: 2= Nausea/Diarrhea Tremor Observation: 4= Gross Tremor/Twitching Yawning Observation: 0= None Anxiety or Irritability: 4=Extreme Anxiety Goose Flesh Skin: 0=Smooth Skin COWS Score: 24 CIWA Score - CIWA Score Nausea/Vomitin Muscle Tremors: 5 Anxiety: 5 Agitation: 5 Paroxysmal Sweats: 3 Orientation: 0-Oriented Tacttile Disturbances: 0-None Auditory Disturbances: 0-None Visual Disturbances: 0-None Headache: 3-Moderate CIWA-Ar Total Score: 24 Admission ROS S - HPI Chief Complaint: C/O WITHDRAWAL SX'S. SEEKING DETOX TXMENT Allergies/Adverse Reactions: Allergies Allergy/AdvReac Type Severity Reaction Status Date / Time egg Allergy Intermediate Hives Verified 10/12/16 12:11 shellfish derived Allergy Intermediate Difficulty Verified 10/12/16 12:11 Breathing fish derived Allergy Difficulty Verified 10/12/16 12:11 Breathing No Known Drug Allergies Allergy Verified 10/12/16 12:11 seafood Allergy Intermediate Difficulty Uncoded 10/12/16 12:11 Breathing History of Present Illness: 41 Y.O. MALE WITH POLYSUBSTANCE ABUSE ADMITTED TO DETOX. CLIENT IS KNOWN TO [facility]. H/O AMA X2 D/W [place] ABOUT ADHERENCE HAS AGREED TO [facility]. REFERRED BY JOINT FILLER. DENIES ANY SIGNIFICANT CLEAN TIME Exam Limitations: No Limitations - Ebola screening Have you traveled outside of the country in the last 21 days: No (N) Have you had contact with anyone from an Ebola affected area: No Have you been sick,other than usual withdrawal symptoms: No Do you have a fever: No - Review of Systems Constitutional: Chills, Loss of Appetite, Malaise, Night Sweats, Changes in sleep, Unintentional Wgt. Loss EENT: reports: Hearing Loss, Dental Problems (MISSING TEETH) Respiratory: reports: No Symptoms reported Cardiac: reports: No Symptoms Reported GI: reports: Nausea, Poor Appetite, Poor Fluid Intake : reports: No Symptoms Reported Musculoskeletal: reports: Back Pain, Joint Pain Integumentary: reports: No Symptoms Reported Neuro: reports: Seizure (R/T ETOH WITHDRAWAL) Endocrine: reports: No Symptoms Reported Hematology: reports: No Symptoms Reported Psychiatric: reports: Anxious, Depressed Other Systems: Reviewed and Negative Patient History - Patient Medical History Hx Anemia: No Hx Asthma: No Hx Chronic Obstructive Pulmonary Disease (COPD): No Hx Cancer: No Hx Cardiac Disorders: No Hx Congestive Heart Failure: No Hx Hypertension: No Hx Hypercholesterolemia: No Hx Pacemaker: No HX Cerebrovascular Accident: No Hx Seizures: Yes (R/T ETOH WITHDRAWAL) Hx Dementia: No Hx Diabetes: No Hx Gastrointestinal Disorders: No (H/O GERD) Hx Liver Disease: No Hx Genitourinary Disorders: No Hx Sexually Transmitted Disorders: No Hx Renal Disease (ESRD): No Hx Thyroid Disease: No Hx Human Immunodeficiency Virus (HIV): No Hx Hepatitis C: Yes (NO TXMENT) Hx Depression: Yes (WELLBUTRIN IN THE PAST) Hx Suicide Attempt: No Hx Bipolar Disorder: No Hx Schizophrenia: No Other Medical History: DENIES - Patient Surgical History Past Surgical History: Yes Hx Neurologic Surgery: No Hx Cataract Extraction: No Hx Cardiac Surgery: No Hx Lung Surgery: No Hx Breast Surgery: No Hx Breast Biopsy: No Hx Abdominal Surgery: No Hx Appendectomy: No Hx Cholecystectomy: Yes ( [place] 03/2011) Hx Genitourinary Surgery: No Hx Section: No Hx Orthopedic Surgery: No Other Surgical History: EAR SX BOTH EARS A CHILD-TUBE INSERTION Anesthesia Reaction: No - PPD History Previous Implant?: Yes Documented Results: Negative w/proof Implanted On Prior [facility] Admission?: Yes Date: 10/09/16 Results: 0 mm PPD to be Administered?: No - Smoking Cessation Smoking history: Current every day smoker Have you smoked in the past 12 months: Yes Aproximately how many cigarettes per day: 10 Cigars Per Day: 0 Hx Chewing Tobacco Use: No Initiated information on smoking cessation: Yes 'Breaking Loose' booklet given: 12/04/16 - Substance & Tx. History Hx Alcohol Use: Yes Hx Substance Use: Yes Substance Use Type: Alcohol, Cocaine, Heroin, Tranquilizers (XANAX) Hx Substance Use Treatment: Yes ([facility]) - Substances Abused HEROIN Route: Injection Frequency: Daily Amount used: 10 Age of first use: 30 Date of Last Use: 12/04/16 XANAX Route: Oral Frequency: 3-6 times per week Amount used: 4 MG Age of first use: 37 Date of Last Use: 12/03/16 BEER/VODKA Route: Oral Frequency: Daily Amount used: 6 PACK/1 PINT Age of first use: 16 Date of Last Use: 12/03/16 COCAINE Route: Injection Frequency: Daily Amount used: $10 Age of first use: 30 Date of Last Use: 12/04/16 Family Disease History - Family Disease History Family Disease History: Diabetes: Father, Heart Disease: Father, Mother (ashma and emphysema), Respiratory: Mother, Other: Brother (alcoholic) Admission Physical Exam S - Vital Signs Vital Signs: Vital Signs - 24 hr 12/04/16 23:45 Temperature 97.8 F Pulse Rate 71 Respiratory 18 Rate Blood Pressure 131/73 - Physical General Appearance: Yes: Disheveled, Mild Distress, Tremorous, Anxious HEENTM: Yes: EOMI, Normocephalic, Pharynx Normal, Other (POOR DENTITION) Respiratory: Yes: Chest Non-Tender, Lungs Clear, Normal Breath Sounds, No Respiratory Distress, No Accessory Muscle Use Neck: Yes: No masses,lesions,Nodules, Supple, Trachea in good position Breast: Yes: Breast Exam Deferred Cardiology: Yes: Regular Rhythm, Regular Rate, S1, S2 Abdominal: Yes: Normal Bowel Sounds, Non Tender, Soft Genitourinary: Yes: Within Normal Limits Back: Yes: Normal Inspection Musculoskeletal: Yes: full range of Motion, Gait Steady Extremities: Yes: Normal Capillary Refill, Normal Inspection, Normal Range of Motion, Non-Tender, Tremors Neurological: Yes: court assistant II-XII NML intact, Fully Oriented, Alert, Motor Strength 5/5 Integumentary: Yes: Dry, Warm, Track Lang Lymphatic: Yes: Within Normal Limits - Diagnostic (1) Seizure Current Visit: Yes Status: Suspected (2) Alcohol dependence with uncomplicated withdrawal Current Visit: Yes Status: Chronic (3) Cocaine dependence, uncomplicated Current Visit: Yes Status: Chronic (4) Nicotine dependence Current Visit: Yes Status: Chronic Qualifiers: Nicotine product type: cigarettes Substance use status: in withdrawal Qualified Code(s): F17.213 - Nicotine dependence, cigarettes, with withdrawal (5) Opioid dependence with withdrawal Current Visit: Yes Status: Chronic (6) Sedative, hypnotic or anxiolytic dependence with withdrawal, uncomplicated Current Visit: Yes Status: Chronic (7) GERD (gastroesophageal reflux disease) Current Visit: Yes Status: Chronic Qualifiers: Esophagitis presence: without esophagitis Qualified Code(s): K21.9 - Gastro-esophageal reflux disease without esophagitis (8) Hepatitis C Current Visit: Yes Status: Chronic Qualifiers: Viral hepatitis chronicity: chronic Hepatic coma status: without hepatic coma Qualified Code(s): B18.2 - Chronic viral hepatitis C (9) hearing loss both ears Current Visit: Yes Status: Suspected Comment: DUE TO CHILDHOOD EAR INFECTIONS Cleared for Admission [facility] - Detox or Rehab [facility] Level of Care: Medically Managed Detox Regimen/Protocol: Methadone/Valium S Breath Alcohol Content Breath Alcohol Content: 0 Urine Drug Screen - Results Drug Screen Negative: No Urine Drug Screen Results: ALEXEY-Cocaine, OPI-Opiates, BZO-Benzodiazepines, OXY- Oxycodone
[2016-12-05] MEDS ORDERED: IBUPROFEN 400 MG TABLET (FP) PO PRN (00:07)
[2016-12-05] MEDS ORDERED: P-EPHED 60MG/TRIPROLIDI 2.5MG TABLET PO PRN (00:07)
[2016-12-05] MEDS ORDERED: MAGNESIUM HYDROX 2400MG/30ML ORAL SUSPENSION 30 ML CUP PO PRN (00:07)
[2016-12-05] MEDS ORDERED: NICOTINE POLACRILEX 2 MG GUM BC PRN (00:07)
[2016-12-05] MEDS ORDERED: METHADONE HCL 10 MG TABLET (FOR DETOX USE ONLY) PO ONE ×3 (00:07→23:00)
[2016-12-05] MEDS ORDERED: guaiFENesin/D-METHORPHAN HB 10 ML UNIT-DOSE CUPS PO PRN (00:07)
[2016-12-05] MEDS ORDERED: diphenhydrAMINE HCL 50 MG CAPSULE PO PRN (00:07)
[2016-12-05] MEDS ORDERED: MENTHOL/PHENOL 1 EACH UD MM PRN (00:07)
[2016-12-05] MEDS ORDERED: diazePAM 5 MG TABLET PO ONE (00:07)
[2016-12-05] MEDS ORDERED: MAG HYDROX/AL HYDROX/SIMETH 30 ML UNIT-DOSE CUP PO PRN (00:07)
[2016-12-05] MEDS ORDERED: MAGNESIUM CITRATE 300 ML BOTTLE PO PRN (00:07)
[2016-12-05] MEDS: diazePAM 5 MG TABLET PO SCH ×3 (06:07→22:30)
[2016-12-05] MEDS: diazePAM 5 MG TABLET PO PRN ×2 (08:41→16:45)
--- NOTE | 2016-12-05 09:44 | CONSULT ---
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 He started drinking alcohol at age 16, consumes one pint of vodka and a 6pk of beer daily. Last drink on 12/03/16. He started using heroin at age 30, consumes 10 bags daily. Last used on 12/04/16. He started using cocaine at age 30, consumes $10 worth daily. Last used on 12/04/16. He started using xanax at age 37, consumes 4 mg 3-6 times weekly, Last used on 12/03/16 Medical History: Significant for Hep C Alcohol-related seizure and history of surgery in both ears as a child. Smokes 10 cigarettes daily Psychiatric History: Reports that approximately 7 years ago, he was brought to [facility] ED due to Cocaine-induced psychotic episode. He was diagnosed with Bipolar Disorder and started on Seroquel and Trazadone. However due to his addiction, he was never consistent with treatment. He describes experiencing hypomanic or manic episode with agitation fast speech, racing thoughts, AH, reckless behavior in the context of drug use. Denies history of previous psychiatric hospitalization or suicidal attempt. He reports treatment with Wellbutrin XL and Trazadone in the past. Reports experiencing priapism with Trazadone. Reports that his las psychiatric contact was when he was admitted to inpatient rehab(3W) on September 2016. At that time, he was discharged on Wellbutrin XL 150 mg po daily. Claims that he did not even fill scrpit. Reports that he wants to be prescribe Wellbutrin XL while here. At present, reports feeling depressed and sleeping poorly Physical/Sexual Abuse/Trauma History: Denies history of emotional, physical or sexual abuse as well as DV relationship. No service Additional Comment: Reports history of multiple misdemeanor arrests. No probation currently Mental Status Exam - Mental Status Exam Alert and Oriented to: Time, Place, Person Cognitive Function: Fair Patient Appearance: Well Groomed Mood: Depressed Affect: Appropriate Patient Behavior: Cooperative Speech Pattern: Clear Voice Loudness: Normal Thought Process: Intact, Goal Oriented Hallucinations: Denies Suicidal Ideation: Denies Homicidal Ideation: Denies Insight/Judgement: Poor Sleep: Poorly Appetite: Poor Muscle strength/Tone: Normal Gait/Station: Normal Psychiatric Findings - Problem List ([place] 1, 2,3) (1) Mood disorder Current Visit: No Status: Acute (2) Bipolar II disorder with rapid cycling Current Visit: No Status: Ruled-out (3) Substance-induced sleep disorder Current Visit: No Status: Ruled-out (4) Alcohol dependence with uncomplicated withdrawal Current Visit: Yes Status: Chronic (5) Opioid dependence with withdrawal Current Visit: Yes Status: Chronic (6) Cocaine dependence, uncomplicated Current Visit: Yes Status: Chronic (7) Sedative, hypnotic or anxiolytic dependence with withdrawal, uncomplicated Current Visit: Yes Status: Chronic (8) Nicotine dependence Current Visit: Yes Status: Chronic Qualifiers: Nicotine product type: cigarettes Substance use status: in withdrawal Qualified Code(s): F17.213 - Nicotine dependence, cigarettes, with withdrawal (9) GERD (gastroesophageal reflux disease) Current Visit: Yes Status: Chronic Qualifiers: Esophagitis presence: without esophagitis Qualified Code(s): K21.9 - Gastro-esophageal reflux disease without esophagitis (10) Hepatitis C Current Visit: Yes Status: Chronic Qualifiers: Viral hepatitis chronicity: chronic Hepatic coma status: without hepatic coma Qualified Code(s): B18.2 - Chronic viral hepatitis C (11) Seizure Current Visit: Yes Status: Suspected (12) Obesity Current Visit: No Status: Chronic Comment: succeeded in losing 12lb during this stay, intentionally - Initial Treatment Plan Initial Treatment Plan: 1) Start Wellbutrin XL 150 mg po daily and Ambien 10 mg po HS prn for insomnia. 2) Continue inpatient detoxification
[2016-12-05] MEDS: PRENATAL VITAMINS W/ FOLIC ACID TABLET (FP) PO SCH (10:31)
[2016-12-05 10:44] LABS: MCH 29.1 pg (25.7-33.7); MCHC 34.1 g/dl (32.0-35.9); MEAN CELL VOLUME 85.3 fl (80-96); MEAN PLT VOLUME 7.4 fl (7.5-11.1); PLATELET COUNT 206 K/MM3 (134-434); RDW 14.6 % (11.9-15.9); WHITE BLOOD COUNT 5.4 K/mm3 (4.0-10.0)
[2016-12-05 10:51] LABS: CALCIUM 8.9 mg/dL (8.5-10.1)
[2016-12-05 10:53] LABS: URINE APPEARANCE SLCLOUDY; URINE BILIRUBIN NEGATIVE (NEGATIVE); URINE BLOOD NEGATIVE (NEGATIVE); URINE COLOR AMBER; URINE GLUCOSE (UA) NEGATIVE (NEGATIVE); URINE KETONE TRACE (NEGATIVE); URINE LEUK ESTERASE NEGATIVE (NEGATIVE); URINE NITRITE NEGATIVE (NEGATIVE); URINE UROBILINOGEN 4.0 E.U/dl mg/dL (0.2-1.0)
[2016-12-05 10:55] LABS: ALBUMIN 3.8 g/dl (3.4-5.0); ALK PHOS 102 U/L (45-117); ANION GAP 6 (8-16); BILIRUBIN,TOTAL 0.9 mg/dL (0.2-1.0); CO2 29 mmol/L (21-32); CREATININE 1.1 mg/dL (0.7-1.3); GLUCOSE,RANDOM 139 mg/dL (74-106); SGOT/AST 69 U/L (15-37); SGPT/ALT 89 U/L (12-78); TOT PROT 7.3 g/dl (6.4-8.2)
[2016-12-05 10:57] LABS: URINE PROTEIN 1+ (NEGATIVE)
[2016-12-05 10:59] LABS: CALCIUM OXALATE CRYSTALS FEW /hpf (NONE SEEN); URINE BACTERIA FEW /hpf (NONE SEEN); URINE MUCUS MANY; URINE RBC 3 /hpf (0-3); URINE WBC 8 /hpf (3-5)
[2016-12-05] MEDS: NICOTINE 21 MG/24 HOURS TOPICAL PATCH TD SCH (11:02)
--- NOTE | 2016-12-05 15:56 | PN ---
[facility] CIWA - CIWA Score Nausea/Vomitin Muscle Tremors: 5 Anxiety: 4-Mod. Anxious/Guarded Agitation: 2 Paroxysmal Sweats: 3 Orientation: 0-Oriented Tacttile Disturbances: 2-Mild Itch/Numbness/Burn Auditory Disturbances: 2-Mild Harshness/Frighten Visual Disturbances: 0-None Headache: 0-None Present CIWA-Ar Total Score: 20 [facility] COWS - Scale Resting Pulse: 1= [place] 81-100 Sweatin= Chills/Flushing Restless Observation: 1= Difficult to Sit Still Pupil Size: 0= Normal to Room Light Bone or Joint Aches: 2= Severe Diffuse Aches Runny Nose/ Eye Tearin= Runny Nose/Eyes GI Upset > 30mins: 2= Nausea/Diarrhea Tremor Observation of Outstretched Hands: 1= Tremor [place], Not Seen Yawning Observation: 1= 1-2x During Session Anxiety or Irritability: 2=Irritable/Anxious Goose Flesh Skin: 3=Piloerection COWS Score: 16 S Progress Note (SOAP) Subjective: Tremors, Sweating, Interrupted sleep, Body Aches, Diarrhea. Objective: PT. A & O X 3, OBSERVED AMBULATING ON UNIT. NO ACUTE DISTRESS. 12/05/16 15:54 Vital Signs Temperature 98.3 F 12/05/16 15:24 Pulse Rate 89 12/05/16 15:24 Respiratory Rate 18 12/05/16 15:24 Blood Pressure 116/66 12/05/16 15:24 O2 Sat by Pulse Oximetry (%) Laboratory Tests 12/05/16 12/05/16 12/05/16 08:00 08:00 08:00 WBC 5.4 RBC 4.81 Hgb 14.0 Hct 41.0 MCV 85.3 MCH 29.1 MCHC 34.1 RDW 14.6 Plt Count 206 MPV 7.4 L Sodium 138 Potassium 3.6 Chloride 103 Carbon Dioxide 29 Anion Gap 6 L BUN 15 D Creatinine 1.1 Creat Clearance w eGFR > 60 Random Glucose 139 H D Calcium 8.9 Total Bilirubin 0.9 AST 69 H D ALT 89 H D Alkaline Phosphatase 102 D Total Protein 7.3 Albumin 3.8 Urine Color Urine Appearance Urine pH Urine Protein Urine Glucose (UA) Urine Ketones Urine Blood Urine Nitrite Urine Bilirubin Urine Urobilinogen Urine RBC Urine WBC Ur Epithelial Cells Calcium Oxalate Crystal Urine Bacteria Urine Mucus RPR Titer Nonreactive 12/05/16 08:00 WBC RBC Hgb Hct MCV MCH MCHC RDW Plt Count MPV Sodium Potassium Chloride Carbon Dioxide Anion Gap BUN Creatinine Creat Clearance w eGFR Random Glucose Calcium Total Bilirubin AST ALT Alkaline Phosphatase Total Protein Albumin Urine Color Destiny Urine Appearance Slcloudy Urine pH 5.0 Urine Protein 1+ H Urine Glucose (UA) Negative Urine Ketones Trace H Urine Blood Negative Urine Nitrite Negative Urine Bilirubin Negative Urine Urobilinogen 4.0 e.u/dl Urine RBC 3 Urine WBC 8 Ur Epithelial Cells Rare Calcium Oxalate Crystal Few Urine Bacteria Few Urine Mucus Many RPR Titer LABS NOTED. Assessment: 12/05/16 15:55 WITHDRAWAL SYMPTOMS. Plan: CONTINUE DETOX. REPEAT UA FOR ADMISSION ABNORMALITIES. REPEAT AST , ALT ON 12/07/2016 FOR ABNORMAL ADMISSION VALUES. INCREASE DAILY PO FLUID INTAKE. BGM ACBK FOR ELEVATED ADMISSION RANDOM GLUCOSE LEVEL.
[2016-12-05] MEDS: ACETAMINOPHEN 325 MG TABLET (FP) PO PRN (16:46)
[2016-12-05] MEDS ORDERED: INSULIN (NOVOLOG) ASPART 100 UNITS/ML 10ML VIAL SQ ONE (18:55)
[2016-12-05] MEDS: THIAMINE HCL 100 MG TABLET (FP) PO SCH (22:29)
[2016-12-06] MEDS: ACETAMINOPHEN 325 MG TABLET (FP) PO PRN ×2 (00:54→13:13)
[2016-12-06] MEDS: diazePAM 5 MG TABLET PO PRN ×4 (00:57→19:23)
[2016-12-06] MEDS: diazePAM 5 MG TABLET PO SCH ×3 (05:31→22:31)
[2016-12-06] MEDS ORDERED: METHADONE HCL 10 MG TABLET (FOR DETOX USE ONLY) PO SCH (10:00)
[2016-12-06] MEDS: PRENATAL VITAMINS W/ FOLIC ACID TABLET (FP) PO SCH (10:16)
[2016-12-06] MEDS: NICOTINE 21 MG/24 HOURS TOPICAL PATCH TD SCH (10:17)
[2016-12-06 10:35] LABS: URINE APPEARANCE CLEAR; URINE BILIRUBIN NEGATIVE (NEGATIVE); URINE BLOOD NEGATIVE (NEGATIVE); URINE COLOR YELLOW; URINE GLUCOSE (UA) NEGATIVE (NEGATIVE); URINE KETONE NEGATIVE (NEGATIVE); URINE LEUK ESTERASE NEGATIVE (NEGATIVE); URINE NITRITE NEGATIVE (NEGATIVE); URINE PROTEIN NEGATIVE (NEGATIVE); URINE UROBILINOGEN NEGATIVE mg/dL (0.2-1.0)
--- NOTE | 2016-12-06 18:26 | PN ---
[facility] CIWA - CIWA Score Nausea/Vomitin Muscle Tremors: 3 Anxiety: 3 Agitation: 3 Paroxysmal Sweats: 3 Orientation: 0-Oriented Tacttile Disturbances: 1-Very Mild Itch/Numbness Auditory Disturbances: 0-None Visual Disturbances: 0-None Headache: 1-Very Mild CIWA-Ar Total Score: 17 S COWS - Scale Resting Pulse: 0= SD 80 or Below Sweatin=Flushed/Facial Moisture Restless Observation: 3= Extraneous Movement Pupil Size: 0= Normal to Room Light Bone or Joint Aches: 2= Severe Diffuse Aches Runny Nose/ Eye Tearin= None GI Upset > 30mins: 3= Vomiting/Diarrhea Tremor Observation of Outstretched Hands: 2= Slight Tremor Visible Yawning Observation: 0= None Anxiety or Irritability: 2=Irritable/Anxious Goose Flesh Skin: 0=Smooth Skin COWS Score: 14 [facility] Progress Note (SOAP) Subjective: Nausea, back pain, tremor, chills, diarrhea Objective: 12/06/16 18:22 Last Vital Signs Temp Pulse Resp BP Pulse Ox 97.2 F L 49 L 18 115/74 12/06/16 13:48 12/06/16 13:48 12/06/16 13:48 12/06/16 13:48 Laboratory Tests 12/05/16 12/05/16 12/05/16 08:00 08:00 08:00 WBC 5.4 RBC 4.81 Hgb 14.0 Hct 41.0 MCV 85.3 MCH 29.1 MCHC 34.1 RDW 14.6 Plt Count 206 MPV 7.4 L Sodium 138 Potassium 3.6 Chloride 103 Carbon Dioxide 29 Anion Gap 6 L BUN 15 D Creatinine 1.1 Creat Clearance w eGFR > 60 POC Glucometer Random Glucose 139 H D Calcium 8.9 Total Bilirubin 0.9 AST 69 H D ALT 89 H D Alkaline Phosphatase 102 D Total Protein 7.3 Albumin 3.8 Urine Color Urine Appearance Urine pH Ur Specific [place] Urine Protein Urine Glucose (UA) Urine Ketones Urine Blood Urine Nitrite Urine Bilirubin Urine Urobilinogen Urine RBC Urine WBC Ur Epithelial Cells Calcium Oxalate Crystal Urine Bacteria Urine Mucus RPR Titer Nonreactive 12/05/16 12/06/16 12/06/16 08:00 06:59 07:40 WBC RBC Hgb Hct MCV MCH MCHC RDW Plt Count MPV Sodium Potassium Chloride Carbon Dioxide Anion Gap BUN Creatinine Creat Clearance w eGFR POC Glucometer 85 Random Glucose Calcium Total Bilirubin AST ALT Alkaline Phosphatase Total Protein Albumin Urine Color Destiny Yellow Urine Appearance Slcloudy Clear Urine pH 5.0 5.0 Ur Specific [place] >= 1.030 H 1.015 Urine Protein 1+ H Negative Urine Glucose (UA) Negative Negative Urine Ketones Trace H Negative Urine Blood Negative Negative Urine Nitrite Negative Negative Urine Bilirubin Negative Negative Urine Urobilinogen 4.0 e.u/dl Negative Urine RBC 3 Urine WBC 8 Ur Epithelial Cells Rare Calcium Oxalate Crystal Few Urine Bacteria Few Urine Mucus Many RPR Titer Labs noted: serum glucose 139; abnormal UA Assessment: 12/06/16 18:24 Withdrawal symptoms Noted with hyperglycemia and abnormal UA Plan: Continue detox Hyperglycemia: repeat fasting glucose, send HbAic Abnormal UA: encouraged to drink lots of water, repeat UA
[2016-12-06] MEDS: THIAMINE HCL 100 MG TABLET (FP) PO SCH (22:17)
[2016-12-06] MEDS: ZOLPIDEM TARTRATE 5 MG TABLET PO PRN (22:31)
[2016-12-07] MEDS: ACETAMINOPHEN 325 MG TABLET (FP) PO PRN (00:33)
[2016-12-07] MEDS: diazePAM 5 MG TABLET PO PRN ×5 (00:33→22:19)
[2016-12-07 10:05] LABS: GLUCOSE,FASTING 83 mg/dL (70-105); SGOT/AST 55 U/L (15-37); SGPT/ALT 75 U/L (12-78)
[2016-12-07] MEDS: NICOTINE 21 MG/24 HOURS TOPICAL PATCH TD SCH (10:13)
[2016-12-07] MEDS: LOPERAMIDE HCL 2 MG CAPSULE PO PRN (10:14)
[2016-12-07] MEDS: METHADONE HCL 5 MG TABLET (FOR DETOX USE ONLY) PO SCH (10:14)
[2016-12-07] MEDS: diazePAM 5 MG TABLET PO SCH ×2 (10:14→22:19)
[2016-12-07] MEDS: PRENATAL VITAMINS W/ FOLIC ACID TABLET (FP) PO SCH (10:14)
--- NOTE | 2016-12-07 13:06 | PN ---
[facility] Progress Note (SOAP) Subjective: Sweating,interrupted sleep,restless Objective: 12/07/16 13:05 Vital Signs - 8 hr 12/07/16 12/07/16 06:04 09:39 Temperature 97.1 F L 97.4 F L Pulse Rate 44 L 51 L Respiratory 18 20 Rate Blood Pressure 125/79 124/74 Laboratory Tests 12/05/16 12/05/16 12/05/16 08:00 08:00 08:00 WBC 5.4 RBC 4.81 Hgb 14.0 Hct 41.0 MCV 85.3 MCH 29.1 MCHC 34.1 RDW 14.6 Plt Count 206 MPV 7.4 L Sodium 138 Potassium 3.6 Chloride 103 Carbon Dioxide 29 Anion Gap 6 L BUN 15 D Creatinine 1.1 Creat Clearance w eGFR > 60 POC Glucometer Random Glucose 139 H D Fasting Glucose Hemoglobin A1c % Calcium 8.9 Total Bilirubin 0.9 AST 69 H D ALT 89 H D Alkaline Phosphatase 102 D Total Protein 7.3 Albumin 3.8 Urine Color Urine Appearance Urine pH Ur Specific [place] Urine Protein Urine Glucose (UA) Urine Ketones Urine Blood Urine Nitrite Urine Bilirubin Urine Urobilinogen Urine RBC Urine WBC Ur Epithelial Cells Calcium Oxalate Crystal Urine Bacteria Urine Mucus RPR Titer Nonreactive 12/05/16 12/06/16 12/06/16 08:00 06:59 07:40 WBC RBC Hgb Hct MCV MCH MCHC RDW Plt Count MPV Sodium Potassium Chloride Carbon Dioxide Anion Gap BUN Creatinine Creat Clearance w eGFR POC Glucometer 85 Random Glucose Fasting Glucose Hemoglobin A1c % Calcium Total Bilirubin AST ALT Alkaline Phosphatase Total Protein Albumin Urine Color Destiny Yellow Urine Appearance Slcloudy Clear Urine pH 5.0 5.0 Ur Specific [place] >= 1.030 H 1.015 Urine Protein 1+ H Negative Urine Glucose (UA) Negative Negative Urine Ketones Trace H Negative Urine Blood Negative Negative Urine Nitrite Negative Negative Urine Bilirubin Negative Negative Urine Urobilinogen 4.0 e.u/dl Negative Urine RBC 3 Urine WBC 8 Ur Epithelial Cells Rare Calcium Oxalate Crystal Few Urine Bacteria Few Urine Mucus Many RPR Titer 12/07/16 12/07/16 12/07/16 05:44 07:00 07:00 WBC RBC Hgb Hct MCV MCH MCHC RDW Plt Count MPV Sodium Potassium Chloride Carbon Dioxide Anion Gap BUN Creatinine Creat Clearance w eGFR POC Glucometer 101 Random Glucose Fasting Glucose 83 Hemoglobin A1c % 5.2 Calcium Total Bilirubin AST 55 H D ALT 75 Alkaline Phosphatase Total Protein Albumin Urine Color Urine Appearance Urine pH Ur Specific [place] Urine Protein Urine Glucose (UA) Urine Ketones Urine Blood Urine Nitrite Urine Bilirubin Urine Urobilinogen Urine RBC Urine WBC Ur Epithelial Cells Calcium Oxalate Crystal Urine Bacteria Urine Mucus RPR Titer labs noted Assessment: 12/07/16 13:06 Withdrawal sx. Plan: Continue detox
[2016-12-07 14:26] LABS: URINE APPEARANCE CLEAR; URINE BILIRUBIN NEGATIVE (NEGATIVE); URINE BLOOD NEGATIVE (NEGATIVE); URINE COLOR LTYELLOW; URINE GLUCOSE (UA) NEGATIVE (NEGATIVE); URINE KETONE NEGATIVE (NEGATIVE); URINE LEUK ESTERASE NEGATIVE (NEGATIVE); URINE NITRITE NEGATIVE (NEGATIVE); URINE PROTEIN NEGATIVE (NEGATIVE); URINE UROBILINOGEN NEGATIVE mg/dL (0.2-1.0)
--- NOTE | 2016-12-07 17:02 | EKG ---
Test Reason : Blood Pressure : / mmHG Vent. Rate : 062 BPM Atrial Rate : 062 BPM P-R Int : 162 ms QRS Dur : 098 ms QT Int : 428 ms P-R-T Axes : 054 057 050 degrees QTc Int : 434 ms NORMAL SINUS RHYTHM MINIMAL VOLTAGE CRITERIA FOR LVH, MAY BE NORMAL VARIANT BORDERLINE ECG WHEN COMPARED WITH ECG OF 07-OCT-2016 12:41, VENT. RATE HAS INCREASED BY 20 BPM Confirmed by JACK PATEL MD ([id number]) on 12/07/2016 5:02:03 PM Referred By: Confirmed By:JACK PATEL MD
[2016-12-07] MEDS: THIAMINE HCL 100 MG TABLET (FP) PO SCH (22:19)
[2016-12-07] MEDS: ZOLPIDEM TARTRATE 5 MG TABLET PO PRN (22:20)
[2016-12-08] MEDS: hydrOXYzine PAMOATE 50 MG CAPSULE (FP) PO PRN ×3 (06:01→22:10)
[2016-12-08] MEDS: diazePAM 5 MG TABLET PO SCH ×2 (10:15→22:10)
[2016-12-08] MEDS: METHADONE HCL 5 MG TABLET (FOR DETOX USE ONLY) PO SCH (10:15)
[2016-12-08] MEDS: PRENATAL VITAMINS W/ FOLIC ACID TABLET (FP) PO SCH (10:15)
[2016-12-08] MEDS: NICOTINE 21 MG/24 HOURS TOPICAL PATCH TD SCH (10:16)
[2016-12-08] MEDS: LOPERAMIDE HCL 2 MG CAPSULE PO PRN (10:17)
--- NOTE | 2016-12-08 11:03 | PN ---
[facility] Progress Note (SOAP) Subjective: ANXIETY,MUSCLE/BONE ACHE,TREMORS. Objective: 12/08/16 11:00 Vital Signs - 24 hr 12/07/16 12/07/16 12/07/16 13:41 17:24 22:10 Temperature 96.8 F L 97.7 F 96.9 F L Pulse Rate 46 L 55 L 53 L Respiratory 18 18 16 Rate Blood Pressure 120/77 127/74 132/75 12/08/16 12/08/16 12/08/16 00:30 04:13 07:01 Temperature 97.3 F L Pulse Rate 46 L Respiratory 18 18 18 Rate Blood Pressure 128/80 12/08/16 09:10 Temperature 96.9 F L Pulse Rate 45 L Respiratory 18 Rate Blood Pressure 121/78 HX PERSISTENT BRADYCARDIA--ASYMPTOMATIC. Laboratory Last Values WBC 5.4 K/mm3 (4.0-10.0) 12/05/16 08:00 RBC 4.81 M/mm3 (4.00-5.60) 12/05/16 08:00 Hgb 14.0 GM/dL (11.7-16.9) 12/05/16 08:00 Hct 41.0 % (35.4-49) 12/05/16 08:00 MCV 85.3 fl (80-96) 12/05/16 08:00 MCH 29.1 pg (25.7-33.7) 12/05/16 08:00 MCHC 34.1 g/dl (32.0-35.9) 12/05/16 08:00 RDW 14.6 % (11.9-15.9) 12/05/16 08:00 Plt Count 206 K/MM3 (134-434) 12/05/16 08:00 MPV 7.4 fl (7.5-11.1) L 12/05/16 08:00 Sodium 138 mmol/L (136-145) 12/05/16 08:00 Potassium 3.6 mmol/L (3.5-5.1) 12/05/16 08:00 Chloride 103 mmol/L (98-107) 12/05/16 08:00 Carbon Dioxide 29 mmol/L (21-32) 12/05/16 08:00 Anion Gap 6 (8-16) L 12/05/16 08:00 BUN 15 mg/dL (7-18) D 12/05/16 08:00 Creatinine 1.1 mg/dL (0.7-1.3) 12/05/16 08:00 Creat Clearance w eGFR > 60 (>60) 12/05/16 08:00 POC Glucometer 101 UNITS (()) 12/07/16 05:44 Random Glucose 139 mg/dL (74-106) H D 12/05/16 08:00 Fasting Glucose 83 mg/dL (70-105) 12/07/16 07:00 Hemoglobin A1c % 5.2 % (4.8-6.0) 12/07/16 07:00 Calcium 8.9 mg/dL (8.5-10.1) 12/05/16 08:00 Total Bilirubin 0.9 mg/dL (0.2-1.0) 12/05/16 08:00 AST 55 U/L (15-37) H D 12/07/16 07:00 ALT 75 U/L (12-78) 12/07/16 07:00 Alkaline Phosphatase 102 U/L (45-117) D 12/05/16 08:00 Total Protein 7.3 g/dl (6.4-8.2) 12/05/16 08:00 Albumin 3.8 g/dl (3.4-5.0) 12/05/16 08:00 Urine Color Ltyellow 12/07/16 10:00 Urine Appearance Clear 12/07/16 10:00 Urine pH 7.0 (5.0-8.0) D 12/07/16 10:00 Ur Specific [place] 1.015 (1.005-1.025) 12/07/16 10:00 Urine Protein Negative (NEGATIVE) 12/07/16 10:00 Urine Glucose (UA) Negative (NEGATIVE) 12/07/16 10:00 Urine Ketones Negative (NEGATIVE) 12/07/16 10:00 Urine Blood Negative (NEGATIVE) 12/07/16 10:00 Urine Nitrite Negative (NEGATIVE) 12/07/16 10:00 Urine Bilirubin Negative (NEGATIVE) 12/07/16 10:00 Urine Urobilinogen Negative mg/dL (0.2-1.0) 12/07/16 10:00 Urine RBC 3 /hpf (0-3) 12/05/16 08:00 Urine WBC 8 /hpf (3-5) 12/05/16 08:00 Ur Epithelial Cells Rare /hpf (FEW) 12/05/16 08:00 Calcium Oxalate Crystal Few /hpf (NONE SEEN) 12/05/16 08:00 Urine Bacteria Few /hpf (NONE SEEN) 12/05/16 08:00 Urine Mucus Many 12/05/16 08:00 RPR Titer Nonreactive (NONREACTIVE) 12/05/16 08:00 Assessment: 12/08/16 11:01 WITHDRAWAL SX Plan: CONTINUE DETOX MONITOR PATIENT INCREASE PO FLUIDS
[2016-12-08] MEDS: THIAMINE HCL 100 MG TABLET (FP) PO SCH (22:10)
[2016-12-08] MEDS: ZOLPIDEM TARTRATE 5 MG TABLET PO PRN (22:11)
[2016-12-09] MEDS: hydrOXYzine PAMOATE 50 MG CAPSULE (FP) PO PRN (05:59)
[2016-12-09] MEDS ORDERED: diazePAM 5 MG TABLET PO SCH (10:00)
[2016-12-09] MEDS ORDERED: METHADONE HCL 10 MG TABLET (FOR DETOX USE ONLY) PO SCH (10:00)
[2016-12-09] MEDS: PRENATAL VITAMINS W/ FOLIC ACID TABLET (FP) PO SCH (10:20)
[2016-12-09] MEDS: NICOTINE 21 MG/24 HOURS TOPICAL PATCH TD SCH (10:21)
[2016-12-09] MEDS ORDERED: CYCLOBENZAPRINE HCL 10 MG TABLET (FP) PO ONE (10:32)
--- NOTE | 2016-12-09 11:31 | PN ---
BHS Progress Note (SOAP) Subjective: ANXIETY,SWEATS,TREMORS, MUSCLE ACHES. Objective: 12/09/16 11:30 Vital Signs Temperature 97.6 F 12/09/16 09:37 Pulse Rate 55 L 12/09/16 09:37 Respiratory Rate 18 12/09/16 09:37 Blood Pressure 123/76 12/09/16 09:37 O2 Sat by Pulse Oximetry (%) Laboratory Last Values WBC 5.4 K/mm3 (4.0-10.0) 12/05/16 08:00 RBC 4.81 M/mm3 (4.00-5.60) 12/05/16 08:00 Hgb 14.0 GM/dL (11.7-16.9) 12/05/16 08:00 Hct 41.0 % (35.4-49) 12/05/16 08:00 MCV 85.3 fl (80-96) 12/05/16 08:00 MCH 29.1 pg (25.7-33.7) 12/05/16 08:00 MCHC 34.1 g/dl (32.0-35.9) 12/05/16 08:00 RDW 14.6 % (11.9-15.9) 12/05/16 08:00 Plt Count 206 K/MM3 (134-434) 12/05/16 08:00 MPV 7.4 fl (7.5-11.1) L 12/05/16 08:00 Sodium 138 mmol/L (136-145) 12/05/16 08:00 Potassium 3.6 mmol/L (3.5-5.1) 12/05/16 08:00 Chloride 103 mmol/L (98-107) 12/05/16 08:00 Carbon Dioxide 29 mmol/L (21-32) 12/05/16 08:00 Anion Gap 6 (8-16) L 12/05/16 08:00 BUN 15 mg/dL (7-18) D 12/05/16 08:00 Creatinine 1.1 mg/dL (0.7-1.3) 12/05/16 08:00 Creat Clearance w eGFR > 60 (>60) 12/05/16 08:00 POC Glucometer 101 UNITS (()) 12/07/16 05:44 Random Glucose 139 mg/dL (74-106) H D 12/05/16 08:00 Fasting Glucose 83 mg/dL (70-105) 12/07/16 07:00 Hemoglobin A1c % 5.2 % (4.8-6.0) 12/07/16 07:00 Calcium 8.9 mg/dL (8.5-10.1) 12/05/16 08:00 Total Bilirubin 0.9 mg/dL (0.2-1.0) 12/05/16 08:00 AST 55 U/L (15-37) H D 12/07/16 07:00 ALT 75 U/L (12-78) 12/07/16 07:00 Alkaline Phosphatase 102 U/L (45-117) D 12/05/16 08:00 Total Protein 7.3 g/dl (6.4-8.2) 12/05/16 08:00 Albumin 3.8 g/dl (3.4-5.0) 12/05/16 08:00 Urine Color Ltyellow 12/07/16 10:00 Urine Appearance Clear 12/07/16 10:00 Urine pH 7.0 (5.0-8.0) D 12/07/16 10:00 Ur Specific [place] 1.015 (1.005-1.025) 12/07/16 10:00 Urine Protein Negative (NEGATIVE) 12/07/16 10:00 Urine Glucose (UA) Negative (NEGATIVE) 12/07/16 10:00 Urine Ketones Negative (NEGATIVE) 12/07/16 10:00 Urine Blood Negative (NEGATIVE) 12/07/16 10:00 Urine Nitrite Negative (NEGATIVE) 12/07/16 10:00 Urine Bilirubin Negative (NEGATIVE) 12/07/16 10:00 Urine Urobilinogen Negative mg/dL (0.2-1.0) 12/07/16 10:00 Urine RBC 3 /hpf (0-3) 12/05/16 08:00 Urine WBC 8 /hpf (3-5) 12/05/16 08:00 Ur Epithelial Cells Rare /hpf (FEW) 12/05/16 08:00 Calcium Oxalate Crystal Few /hpf (NONE SEEN) 12/05/16 08:00 Urine Bacteria Few /hpf (NONE SEEN) 12/05/16 08:00 Urine Mucus Many 12/05/16 08:00 RPR Titer Nonreactive (NONREACTIVE) 12/05/16 08:00 Assessment: 12/09/16 11:30 WITHDRAWAL SX Plan: CONTINUE DETOX
[2016-12-09] MEDS: CYCLOBENZAPRINE HCL 10 MG TABLET (FP) PO SCH ×2 (15:11→22:21)
[2016-12-09] MEDS: ZOLPIDEM TARTRATE 5 MG TABLET PO PRN (22:21)
[2016-12-09] MEDS: THIAMINE HCL 100 MG TABLET (FP) PO SCH (22:21)
[2016-12-10] MEDS ORDERED: METHADONE HCL 5 MG TABLET (FOR DETOX USE ONLY) PO SCH (06:00)
[2016-12-10] MEDS: CYCLOBENZAPRINE HCL 10 MG TABLET (FP) PO SCH (06:22)
[2016-12-10 06:27] VITALS: BP 120/75; PULSE 53; TEMP 97.3
== END 2016-12-10 09:15 | disposition home or self-care (01) | DRG 773 ==
LOC: YASAS 23:34 → Y3N 23:50
PROVIDERS: ADMIT Internal Medicine; ATTEND Internal Medicine
PROC: HZ2ZZZZ Detoxification Services for Substance Abuse Treatment (ICD-10-PCS; principal; 2016-12-04)
DX: F11.23 Opioid dependence with withdrawal (principal); F13.220 Sedative, hypnotic or anxiolytic dependence with intoxication, uncomplicated; F10.230 Alcohol dependence with withdrawal, uncomplicated; F14.20 Cocaine dependence, uncomplicated; F17.210 Nicotine dependence, cigarettes, uncomplicated; F31.81 Bipolar II disorder; F19.24 Other psychoactive substance dependence with psychoactive substance-induced mood disorder; F39 Unspecified mood [affective] disorder; R56.9 Unspecified convulsions; K21.9 Gastro-esophageal reflux disease without esophagitis; B18.2 Chronic viral hepatitis C; H91.93 Unspecified hearing loss, bilateral
CPT/HCPCS: 36415; 80053; 81003; 81015; 82947; 83036; 84450; 84460; 85027; 86593; 93005; 93010

== ENCOUNTER 2017-01-26 22:51 | Inpatient (IN) | payer OTHER ==
[~2017-01-26 22:51] MED LIST: diazePAM 5 MG TABLET PO SCH
[2017-01-26] MEDS ORDERED: METHADONE HCL 10 MG TABLET (FOR DETOX USE ONLY) PO ONE ×2 (23:00→23:46)
[2017-01-26 23:16] VITALS: BMI 30.4
--- NOTE | 2017-01-26 23:21 | HP ---
COWS - Scale Resting Pulse: 0= [place] 80 or Below Sweatin= Beads of Sweat on Face Restless Observation: 3= Extraneous Movement Pupil Size: 1= Pupils >than Normal Bone or Joint Aches: 4=Acute Joint/Muscle Pain Runny Nose/ Eye Tearin= Runny Nose/Eyes GI Upset > 30mins: 2= Nausea/Diarrhea (diarrhea x 6) Tremor Observation: 4= Gross Tremor/Twitching Yawning Observation: 1= 1-2x During Session Anxiety or Irritability: 4=Extreme Anxiety Goose Flesh Skin: 0=Smooth Skin COWS Score: 24 CIWA Score - CIWA Score Nausea/Vomitin Muscle Tremors: 6 Anxiety: 4-Mod. Anxious/Guarded Agitation: 4-Moderately Restless Paroxysmal Sweats: 4-Forehead w/Sweat Beads Orientation: 0-Oriented Tacttile Disturbances: 1-Very Mild Itch/Numbness Auditory Disturbances: 0-None Visual Disturbances: 0-None Headache: 2-Mild CIWA-Ar Total Score: 23 Admission ROS [facility] - HPI Chief Complaint: Alcohol and Heroin withdrawal Allergies/Adverse Reactions: Allergies Allergy/AdvReac Type Severity Reaction Status Date / Time egg Allergy Intermediate Hives Verified 12/05/16 01:10 shellfish derived Allergy Intermediate Difficulty Verified 12/05/16 01:10 Breathing fish derived Allergy Difficulty Verified 12/05/16 01:10 Breathing No Known Drug Allergies Allergy Verified 12/05/16 01:10 seafood Allergy Intermediate Difficulty Uncoded 12/05/16 01:10 Breathing History of Present Illness: 41 years old male with heroin, cocaine and alcohol dependence is admitted to detox. Patient reports previous detox and 6 months sobriety. Patient reports medical history Hep C, GERD, seizures and denies suicidal ideation. Exam Limitations: No Limitations - Ebola screening Have you traveled outside of the country in the last 21 days: No (N) Have you had contact with anyone from an Ebola affected area: No Have you been sick,other than usual withdrawal symptoms: No Do you have a fever: No - Review of Systems Constitutional: Chills, Diaphoresis, Loss of Appetite, Malaise, Night Sweats, Changes in sleep EENT: reports: Nose Congestion, Sinus Pressure Respiratory: reports: Productive cough (yellowish phlegm) Cardiac: reports: No Symptoms Reported GI: reports: Diarrhea, Poor Appetite, Poor Fluid Intake, Abdominal cramping : reports: No Symptoms Reported Musculoskeletal: reports: Back Pain, Joint Pain, Muscle Pain, Muscle Weakness, Neck Pain Integumentary: reports: Flushing, Sweating Neuro: reports: Headache, Seizure, Tingling, Tremors, Weakness Endocrine: reports: Excessive Sweating, Flushing Hematology: reports: No Symptoms Reported Psychiatric: reports: Orientated x3, Agitated, Anxious Other Systems: Reviewed and Negative Patient History - Patient Medical History Hx Anemia: No Hx Asthma: No Hx Chronic Obstructive Pulmonary Disease (COPD): No Hx Cancer: No Hx Cardiac Disorders: No Hx Congestive Heart Failure: No Hx Hypertension: No Hx Hypercholesterolemia: No Hx Pacemaker: No HX Cerebrovascular Accident: No Hx Seizures: Yes (R/T ETOH WITHDRAWAL) Hx Dementia: No Hx Diabetes: No Hx Gastrointestinal Disorders: Yes (H/O GERD) Hx Liver Disease: No Hx Genitourinary Disorders: No Hx Sexually Transmitted Disorders: No Hx Renal Disease (ESRD): No Hx Thyroid Disease: No Hx Human Immunodeficiency Virus (HIV): No Hx Hepatitis C: Yes (NO TXMENT) Hx Depression: Yes (WELLBUTRIN non-compliant) Hx Suicide Attempt: No Hx Bipolar Disorder: No Hx Schizophrenia: No - Patient Surgical History Past Surgical History: Yes Hx Neurologic Surgery: No Hx Cataract Extraction: No Hx Cardiac Surgery: No Hx Lung Surgery: No Hx Breast Surgery: No Hx Breast Biopsy: No Hx Abdominal Surgery: No Hx Appendectomy: No Hx Cholecystectomy: Yes ( [place] 03/2011) Hx Genitourinary Surgery: No Hx Section: No Hx Orthopedic Surgery: No Other Surgical History: EAR SX BOTH EARS A CHILD-TUBE INSERTION Anesthesia Reaction: No - PPD History Date: 10/09/16 Results: 0 mm PPD to be Administered?: No - Reproductive History Patient is a Female of Child Bearing Age (11 -55 yrs old): No (MALE) - Smoking Cessation Smoking history: Current every day smoker Have you smoked in the past 12 months: Yes Aproximately how many cigarettes per day: 10 Cigars Per Day: 0 Hx Chewing Tobacco Use: No Initiated information on smoking cessation: Yes 'Breaking Loose' booklet given: 01/26/17 - Substance & Tx. History Hx Alcohol Use: Yes (BEER, VODKA) Hx Substance Use: Yes (Heroin, Cocaine, Xanax) Substance Use Type: Alcohol, Cocaine, Heroin Hx Substance Use Treatment: Yes ([facility]) - Substances Abused Heroin Route: Injection Frequency: Daily Amount used: 10 bags Age of first use: 30 Date of Last Use: 01/26/17 Cocaine Route: Injection Frequency: Daily Amount used: $20 Age of first use: 30 Date of Last Use: 01/26/17 Alprazolam (Xanax) Route: Oral Frequency: 3-6 times per week Amount used: 4mg Age of first use: 35 Date of Last Use: 01/24/17 Alcohol Route: Oral Frequency: Daily Amount used: Beer 6 (12oz.) bottles, Vodka 1 pint Age of first use: 16 Date of Last Use: 01/25/17 Family Disease History - Family Disease History Family Disease History: Diabetes: Father, Heart Disease: Father, Mother (ashma and emphysema), Respiratory: Mother, Other: Brother (alcoholic) Admission Physical Exam [facility] - Vital Signs Vital Signs: Vital Signs - 24 hr 01/26/17 23:13 Temperature 98.1 F Pulse Rate 72 Respiratory 20 Rate Blood Pressure 146/87 - Physical General Appearance: Yes: Severe Distress, Irritable, Sweating, Anxious HEENTM: Yes: EOMI, Normal Voice, ADELA Respiratory: Yes: Lungs Clear, Normal Breath Sounds, No Respiratory Distress Neck: Yes: Supple Breast: Yes: Breast Exam Deferred Cardiology: Yes: Regular Rhythm, Regular Rate, S1, S2, Other (tatoo to chest wall) Abdominal: Yes: Normal Bowel Sounds, Soft Genitourinary: Yes: Within Normal Limits Back: Yes: Within Normal Limits Musculoskeletal: Yes: Back pain, Muscle Pain, Muscle weakness Extremities: Yes: Tremors, Other (tatoos to both hand) Neurological: Yes: Fully Oriented, Alert, Normal Response Integumentary: Yes: Pale, Track Lang (right and left arm) Lymphatic: Yes: Within Normal Limits - Diagnostic (1) Seizure Current Visit: No Status: Chronic (2) hearing loss both ears Current Visit: No Status: Chronic Comment: DUE TO CHILDHOOD EAR INFECTIONS (3) Hepatitis C Current Visit: No Status: Chronic Qualifiers: Viral hepatitis chronicity: chronic Hepatic coma status: without hepatic coma Qualified Code(s): B18.2 - Chronic viral hepatitis C (4) GERD (gastroesophageal reflux disease) Current Visit: No Status: Chronic Qualifiers: Esophagitis presence: without esophagitis Qualified Code(s): K21.9 - Gastro -esophageal reflux disease without esophagitis (5) Nicotine dependence Current Visit: Yes Status: Chronic Qualifiers: Nicotine product type: cigarettes Substance use status: uncomplicated Qualified Code(s): F17.210 - Nicotine dependence, cigarettes, uncomplicated (6) Alcohol dependence with uncomplicated withdrawal Current Visit: Yes Status: Chronic (7) Opioid dependence with withdrawal Current Visit: Yes Status: Chronic (8) Cocaine dependence, uncomplicated Current Visit: Yes Status: Chronic (9) Sedative, hypnotic or anxiolytic dependence with withdrawal, uncomplicated Current Visit: Yes Status: Chronic Cleared for Admission S - Detox or Rehab [facility] Level of Care: Medically Managed Detox Regimen/Protocol: Methadone/Valium S Breath Alcohol Content Breath Alcohol Content: 0 Urine Drug Screen - Results Drug Screen Negative: No Urine Drug Screen Results: ALEXEY-Cocaine, OPI-Opiates, BZO-Benzodiazepines, MTD- Methadone, TCA-Tricyclic Antidepress, OXY-Oxycodone
[2017-01-26] MEDS ORDERED: MENTHOL/PHENOL 1 EACH UD MM PRN (23:46)
[2017-01-26] MEDS ORDERED: LOPERAMIDE HCL 2 MG CAPSULE PO PRN (23:46)
[2017-01-26] MEDS ORDERED: diazePAM 5 MG TABLET PO PRN (23:46)
[2017-01-26] MEDS ORDERED: guaiFENesin/D-METHORPHAN HB 10 ML UNIT-DOSE CUPS PO PRN (23:46)
[2017-01-26] MEDS ORDERED: MAG HYDROX/AL HYDROX/SIMETH 30 ML UNIT-DOSE CUP PO PRN (23:46)
[2017-01-26] MEDS ORDERED: diazePAM 5 MG TABLET PO ONE (23:46)
[2017-01-26] MEDS ORDERED: MAGNESIUM CITRATE 300 ML BOTTLE PO PRN (23:46)
[2017-01-26] MEDS ORDERED: P-EPHED 60MG/TRIPROLIDI 2.5MG TABLET PO PRN (23:46)
[2017-01-26] MEDS ORDERED: MAGNESIUM HYDROX 2400MG/30ML ORAL SUSPENSION 30 ML CUP PO PRN (23:46)
[2017-01-27] MEDS ORDERED: METHADONE HCL 10 MG TABLET (FOR DETOX USE ONLY) PO ONE ×2 (00:15→23:00)
[2017-01-27] MEDS ORDERED: diazePAM 5 MG TABLET PO ONE (00:15)
[2017-01-27] MEDS: ACETAMINOPHEN 325 MG TABLET (FP) PO PRN ×2 (02:09→14:13)
[2017-01-27] MEDS: diazePAM 5 MG TABLET PO PRN ×3 (07:27→17:44)
[2017-01-27] MEDS: diazePAM 5 MG TABLET PO SCH ×3 (07:27→22:26)
--- NOTE | 2017-01-27 09:04 | CONSULT ---
[facility] Psychiatric Consult - Data Date of interview: 01/27/17 Admission source: [facility] Identifying data: This is 41 years old male with no psychiatric hospitalization history, intoxicated with: Heroin, Alcohol, Cociane, Xanax Substance Abuse History: - Smoking Cessation. Smoking history: Current every day smoker. Have you smoked in the past 12 months: Yes. Aproximately how many cigarettes per day: 10. Cigars Per Day: 0. Hx Chewing Tobacco Use: No. Initiated information on smoking cessation: Yes. 'Breaking Loose' booklet given : 01/26/17. - Substance & Tx. History. Hx Alcohol Use: Yes (BEER, VODKA). Hx Substance Use: Yes (Heroin, Cocaine, Xanax). Substance Use Type: Alcohol, Cocaine, Heroin. Hx Substance Use Treatment: Yes ([facility]). - Substances Abused. Heroin. Route: Injection. Frequency: Daily. Amount used: 10 bags. Age of first use: 30. Date of Last Use: 01/26/17. Cocaine. Route: Injection. Frequency: Daily. Amount used: $20. Age of first use: 30. Date of Last Use: 01/26/17. Alprazolam (Xanax). Route: Oral. Frequency: 3-6 times per week. Amount used: 4mg. Age of first use: 35. Date of Last Use: 01/24/17. Alcohol. Route: Oral. Frequency: Daily. Amount used: Beer 6 (12oz.) bottles, Vodka 1 pint. Age of first use: 16. Date of Last Use: 01/25/17 Medical History: HepC+, gerd, Seizure history Psychiatric History: Patient reports history of anxiety and depression, reports taking prior to admission: Ambien 10mg po qhs. Wellbutrin XL 150mg poqd. Angie suicidal history Physical/Sexual Abuse/Trauma History: Denies Additional Comment: Ambien 10mg po qhs. Wellbutrin XL 150mg poqd Mental Status Exam - Mental Status Exam Alert and Oriented to: Person Cognitive Function: Fair Patient Appearance: Unkempt Mood: Sad Affect: Flat Patient Behavior: Sedated Speech Pattern: Delayed Voice Loudness: Mildly Soft/Quiet Thought Process: Circumstantial Thought Disorder: Being Controlled Hallucinations: Denies Suicidal Ideation: Denies Homicidal Ideation: Denies Insight/Judgement: Fair Sleep: Difficulty falling asleep Appetite: Fair Muscle strength/Tone: Normal Gait/Station: Shuffling Additional Comments: Ambien 10mg po qhs. Wellbutrin XL 150mg poqd Psychiatric Findings - Problem List ([place] 1, 2,3) (1) Drug-induced mood disorder Current Visit: Yes Status: Acute (2) Alcohol dependence with uncomplicated withdrawal Current Visit: Yes Status: Chronic (3) Cocaine dependence, uncomplicated Current Visit: Yes Status: Chronic (4) Nicotine dependence Current Visit: Yes Status: Chronic Qualifiers: Nicotine product type: cigarettes Substance use status: uncomplicated Qualified Code(s): F17.210 - Nicotine dependence, cigarettes, uncomplicated (5) Opioid dependence with withdrawal Current Visit: Yes Status: Chronic (6) Sedative, hypnotic or anxiolytic dependence with withdrawal, uncomplicated Current Visit: Yes Status: Chronic (7) anxiety and depression Current Visit: No Status: Active (8) Anxiety disorder Current Visit: No Status: Acute (9) Opioid dependence, uncomplicated Current Visit: No Status: Acute (10) Alcohol dependence in controlled environment Current Visit: No Status: Chronic (11) Obesity Current Visit: No Status: Chronic Comment: succeeded in losing 12lb during this stay, intentionally (12) Anxiety Current Visit: No Status: Suspected - Initial Treatment Plan Initial Treatment Plan: Ambien 10mg po qhs. Wellbutrin XL 150mg poqd
--- NOTE | 2017-01-27 09:23 | PN ---
[facility] CIWA - CIWA Score Nausea/Vomitin-Mild Nausea/No Vomiting Muscle Tremors: 4-Moderate,w/Arms Extend Anxiety: 4-Mod. Anxious/Guarded Agitation: 4-Moderately Restless Paroxysmal Sweats: 3 Orientation: 0-Oriented Tacttile Disturbances: 0-None Auditory Disturbances: 0-None Visual Disturbances: 0-None Headache: 1-Very Mild CIWA-Ar Total Score: 17 BHS COWS - Scale Resting Pulse: 1= [place] 81-100 Sweatin=Flushed/Facial Moisture Restless Observation: 1= Difficult to Sit Still Pupil Size: 0= Normal to Room Light Bone or Joint Aches: 2= Severe Diffuse Aches Runny Nose/ Eye Tearin= Runny Nose/Eyes GI Upset > 30mins: 1= Stomach Cramp Tremor Observation of Outstretched Hands: 2= Slight Tremor Visible Yawning Observation: 2= >3x During Session Anxiety or Irritability: 2=Irritable/Anxious Goose Flesh Skin: 3=Piloerection COWS Score: 18 S Progress Note (SOAP) Subjective: chills sweats shakes restless irritable body aches interrupted sleep Objective: 01/27/17 09:22 Vital Signs Temperature 97.9 F 01/27/17 07:53 Pulse Rate 55 L 01/27/17 07:53 Respiratory Rate 16 01/27/17 07:53 Blood Pressure 125/66 01/27/17 07:53 O2 Sat by Pulse Oximetry (%) labs pending aaox3 lying in bed no acute distress Assessment: 01/27/17 09:23 withdrawal sx Plan: continue detox increase fluids f/u pending labs
[2017-01-27] MEDS ORDERED: METHADONE HCL 10 MG TABLET PO ONE (10:00)
[2017-01-27] MEDS ORDERED: METHADONE HCL 10 MG TABLET (FOR DETOX USE ONLY) PO SCH (10:00)
[2017-01-27 10:02] LABS: MCH 28.6 pg (25.7-33.7); MCHC 34.2 g/dl (32.0-35.9); MEAN CELL VOLUME 83.5 fl (80-96); MEAN PLT VOLUME 7.6 fl (7.5-11.1); PLATELET COUNT 231 K/MM3 (134-434); RDW 12.9 % (11.9-15.9); WHITE BLOOD COUNT 6.1 K/mm3 (4.0-10.0)
[2017-01-27 10:24] LABS: ALBUMIN 3.7 g/dl (3.4-5.0); ALK PHOS 102 U/L (45-117); ANION GAP 5 (8-16); BILIRUBIN,TOTAL 0.9 mg/dL (0.2-1.0); CALCIUM 8.8 mg/dL (8.5-10.1); CO2 33 mmol/L (21-32); CREATININE 1.1 mg/dL (0.7-1.3); GLUCOSE,RANDOM 97 mg/dL (74-106); SGOT/AST 42 U/L (15-37); SGPT/ALT 48 U/L (12-78); TOT PROT 7.8 g/dl (6.4-8.2)
--- NOTE | 2017-01-27 10:26 | EKG ---
Test Reason : Blood Pressure : / mmHG Vent. Rate : 065 BPM Atrial Rate : 065 BPM P-R Int : 160 ms QRS Dur : 088 ms QT Int : 398 ms P-R-T Axes : 053 037 048 degrees QTc Int : 413 ms NORMAL SINUS RHYTHM VOLTAGE CRITERIA FOR LEFT VENTRICULAR HYPERTROPHY ABNORMAL ECG WHEN COMPARED WITH ECG OF 05-DEC-2016 00:55, NO SIGNIFICANT CHANGE WAS FOUND Confirmed by BAMBI ALANIS MD ([id number]) on 01/27/2017 10:26:12 AM Referred By: Confirmed By:BAMBI ALANIS MD
[2017-01-27] MEDS: PRENATAL VITAMINS W/ FOLIC ACID TABLET (FP) PO SCH (10:27)
[2017-01-27] MEDS: IBUPROFEN 400 MG TABLET (FP) PO PRN (17:44)
[2017-01-27] MEDS: ZOLPIDEM TARTRATE 10 MG TABLET (PARK CARE ONLY) PO PRN (22:26)
[2017-01-27] MEDS: THIAMINE HCL 100 MG TABLET (FP) PO SCH (22:26)
[2017-01-28] MEDS: diazePAM 5 MG TABLET PO PRN ×5 (00:29→20:22)
[2017-01-28] MEDS: IBUPROFEN 400 MG TABLET (FP) PO PRN ×2 (04:48→13:26)
[2017-01-28] MEDS: diazePAM 5 MG TABLET PO SCH ×3 (06:56→22:20)
[2017-01-28 09:48] LABS: URINE APPEARANCE CLEAR; URINE BILIRUBIN NEGATIVE (NEGATIVE); URINE BLOOD NEGATIVE (NEGATIVE); URINE COLOR YELLOW; URINE GLUCOSE (UA) NEGATIVE (NEGATIVE); URINE KETONE NEGATIVE (NEGATIVE); URINE NITRITE NEGATIVE (NEGATIVE); URINE PROTEIN NEGATIVE (NEGATIVE); URINE UROBILINOGEN NEGATIVE mg/dL (0.2-1.0)
[2017-01-28] MEDS ORDERED: METHADONE HCL 5 MG TABLET (FOR DETOX USE ONLY) PO SCH (10:00)
[2017-01-28] MEDS ORDERED: METHADONE HCL 10 MG TABLET (FOR DETOX USE ONLY) PO SCH (10:00)
[2017-01-28] MEDS ORDERED: diazePAM 5 MG TABLET PO SCH (10:00)
[2017-01-28] MEDS: PRENATAL VITAMINS W/ FOLIC ACID TABLET (FP) PO SCH (10:18)
[2017-01-28] MEDS: ACETAMINOPHEN 325 MG TABLET (FP) PO PRN ×2 (10:19→20:23)
--- NOTE | 2017-01-28 10:28 | PN ---
[facility] CIWA - CIWA Score Nausea/Vomitin-No Nausea/No Vomiting Muscle Tremors: 4-Moderate,w/Arms Extend Anxiety: 3 Agitation: 3 Paroxysmal Sweats: 2 Orientation: 0-Oriented Tacttile Disturbances: 0-None Auditory Disturbances: 0-None Visual Disturbances: 0-None Headache: 0-None Present CIWA-Ar Total Score: 12 BHS COWS - Scale Resting Pulse: 0= [place] 80 or Below Sweatin=Flushed/Facial Moisture Restless Observation: 1= Difficult to Sit Still Pupil Size: 0= Normal to Room Light Bone or Joint Aches: 2= Severe Diffuse Aches Runny Nose/ Eye Tearin= Runny Nose/Eyes GI Upset > 30mins: 1= Stomach Cramp Tremor Observation of Outstretched Hands: 2= Slight Tremor Visible Yawning Observation: 2= >3x During Session Anxiety or Irritability: 1=Feels Anxious/Irritable Goose Flesh Skin: 3=Piloerection COWS Score: 16 S Progress Note (SOAP) Subjective: restless agitation anxiety sweats shakes interrupted sleep Objective: 01/28/17 10:27 Vital Signs Temperature 98.2 F 01/28/17 06:00 Pulse Rate 54 L 01/28/17 06:00 Respiratory Rate 16 01/28/17 06:00 Blood Pressure 123/72 01/28/17 06:00 O2 Sat by Pulse Oximetry (%) Laboratory Tests 01/27/17 01/27/17 01/27/17 07:00 07:00 07:00 WBC 6.1 RBC 4.91 Hgb 14.0 Hct 41.0 MCV 83.5 MCH 28.6 MCHC 34.2 RDW 12.9 D Plt Count 231 MPV 7.6 Sodium 134 L Potassium 5.2 H D Chloride 96 L Carbon Dioxide 33 H Anion Gap 5 L BUN 13 Creatinine 1.1 Creat Clearance w eGFR > 60 Random Glucose 97 D Calcium 8.8 Total Bilirubin 0.9 AST 42 H D ALT 48 D Alkaline Phosphatase 102 Total Protein 7.8 Albumin 3.7 Urine Color Urine Appearance Urine pH Ur Specific [place] Urine Protein Urine Glucose (UA) Urine Ketones Urine Blood Urine Nitrite Urine Bilirubin Urine Urobilinogen RPR Titer Nonreactive 01/28/17 08:00 WBC RBC Hgb Hct MCV MCH MCHC RDW Plt Count MPV Sodium Potassium Chloride Carbon Dioxide Anion Gap BUN Creatinine Creat Clearance w eGFR Random Glucose Calcium Total Bilirubin AST ALT Alkaline Phosphatase Total Protein Albumin Urine Color Yellow Urine Appearance Clear Urine pH 7.0 Ur Specific [place] 1.021 Urine Protein Negative Urine Glucose (UA) Negative Urine Ketones Negative Urine Blood Negative Urine Nitrite Negative Urine Bilirubin Negative Urine Urobilinogen Negative RPR Titer aaox3 ambulating no acute distress Assessment: 01/28/17 10:28 withdrawal sx Plan: continue detox increase fluids
[2017-01-28] MEDS ORDERED: ALBUTEROL SO4 2.5/IPRATROPIUM 0.5 INH SOL 3 ML VIAL.NEB. NEB ONE (11:58)
[2017-01-28] MEDS ORDERED: AZITHROMYCIN 250 MG TABLET PO ONE (11:58)
[2017-01-28 13:42] LABS: URINE LEUK ESTERASE Negative (NEGATIVE)
[2017-01-28] MEDS: ZOLPIDEM TARTRATE 10 MG TABLET (PARK CARE ONLY) PO PRN (22:20)
[2017-01-28] MEDS: THIAMINE HCL 100 MG TABLET (FP) PO SCH (22:21)
[2017-01-29] MEDS: diazePAM 5 MG TABLET PO PRN ×5 (00:32→23:54)
[2017-01-29] MEDS: IBUPROFEN 400 MG TABLET (FP) PO PRN ×2 (00:33→12:26)
[2017-01-29] MEDS: ACETAMINOPHEN 325 MG TABLET (FP) PO PRN ×4 (04:43→23:54)
--- NOTE | 2017-01-29 10:11 | PN ---
B[facility] Progress Note (SOAP) Subjective: shakes sweats interrupted sleep agitation body aches Objective: 01/29/17 10:11 Vital Signs Temperature 97.9 F 01/29/17 06:00 Pulse Rate 52 L 01/29/17 06:00 Respiratory Rate 18 01/29/17 06:00 Blood Pressure 137/70 01/29/17 06:00 O2 Sat by Pulse Oximetry (%) aaox3 ambulating no acute distress Assessment: 01/29/17 10:11 withdrawal sx Plan: continue detox increase fluids
[2017-01-29] MEDS: diazePAM 5 MG TABLET PO SCH ×2 (10:20→22:35)
[2017-01-29] MEDS: AZITHROMYCIN 250 MG TABLET PO SCH (10:20)
[2017-01-29] MEDS: PRENATAL VITAMINS W/ FOLIC ACID TABLET (FP) PO SCH (10:21)
[2017-01-29] MEDS: METHADONE HCL 5 MG TABLET (FOR DETOX USE ONLY) PO SCH (10:21)
[2017-01-29] MEDS: THIAMINE HCL 100 MG TABLET (FP) PO SCH (22:35)
[2017-01-29] MEDS: ZOLPIDEM TARTRATE 10 MG TABLET (PARK CARE ONLY) PO PRN (22:35)
[2017-01-30] MEDS ORDERED: diazePAM 5 MG TABLET PO SCH (10:00)
[2017-01-30] MEDS ORDERED: METHADONE HCL 10 MG TABLET (FOR DETOX USE ONLY) PO SCH (10:00)
[2017-01-30] MEDS: diazePAM 5 MG TABLET PO SCH ×2 (10:18→22:14)
[2017-01-30] MEDS: AZITHROMYCIN 250 MG TABLET PO SCH (10:18)
[2017-01-30] MEDS: METHADONE HCL 5 MG TABLET (FOR DETOX USE ONLY) PO SCH (10:18)
[2017-01-30] MEDS: PRENATAL VITAMINS W/ FOLIC ACID TABLET (FP) PO SCH (10:18)
[2017-01-30] MEDS: CYCLOBENZAPRINE HCL 10 MG TABLET (FP) PO PRN ×2 (12:24→22:14)
[2017-01-30] MEDS: cloNIDine HCL 0.1 MG TABLET PO SCH ×2 (12:24→22:14)
--- NOTE | 2017-01-30 13:56 | PN ---
BHS Progress Note (SOAP) Subjective: alert,irritable,anxious,interrupted sleep,tremor,pain in the body and back Objective: 01/30/17 13:55 Vital Signs Temperature 97.0 F L 01/30/17 10:27 Pulse Rate 94 H 01/30/17 10:27 Respiratory Rate 20 01/30/17 10:27 Blood Pressure 121/81 01/30/17 10:27 O2 Sat by Pulse Oximetry (%) Assessment: 01/30/17 13:55 withdrawal symptom Plan: continue detox
[2017-01-30] MEDS: THIAMINE HCL 100 MG TABLET (FP) PO SCH (22:14)
[2017-01-31] MEDS ORDERED: METHADONE HCL 5 MG TABLET (FOR DETOX USE ONLY) PO SCH (06:00)
[2017-01-31] MEDS ORDERED: METHADONE HCL 10 MG TABLET (FOR DETOX USE ONLY) PO SCH (10:00)
[2017-01-31] MEDS ORDERED: diazePAM 5 MG TABLET PO SCH (10:00)
[2017-01-31] MEDS: PRENATAL VITAMINS W/ FOLIC ACID TABLET (FP) PO SCH (10:17)
[2017-01-31] MEDS: AZITHROMYCIN 250 MG TABLET PO SCH (10:17)
[2017-01-31] MEDS: cloNIDine HCL 0.1 MG TABLET PO SCH ×2 (10:17→22:15)
[2017-01-31] MEDS: CYCLOBENZAPRINE HCL 10 MG TABLET (FP) PO PRN ×2 (10:17→22:17)
--- NOTE | 2017-01-31 10:47 | PN ---
S Progress Note (SOAP) Subjective: alert,irritable,anxious,interrupted sleep Objective: 01/31/17 10:46 Vital Signs Temperature 96.4 F L 01/31/17 10:45 Pulse Rate 54 L 01/31/17 10:45 Respiratory Rate 18 01/31/17 10:45 Blood Pressure 126/68 01/31/17 10:45 O2 Sat by Pulse Oximetry (%) Assessment: 01/31/17 10:47 withdrawal symptom Plan: continue detox,discharge in am
[2017-01-31] MEDS: ACETAMINOPHEN 325 MG TABLET (FP) PO PRN (22:15)
[2017-01-31] MEDS: THIAMINE HCL 100 MG TABLET (FP) PO SCH (22:15)
[2017-02-01] MEDS: ACETAMINOPHEN 325 MG TABLET (FP) PO PRN (05:42)
[2017-02-01] MEDS ORDERED: METHADONE HCL 5 MG TABLET (FOR DETOX USE ONLY) PO SCH (06:00)
--- NOTE | 2017-02-01 09:03 | DS ---
[facility] Detox Discharge Summary Admission Date: 01/26/17 Discharge Date: 02/01/17 - History Present History: Alcohol Dependence, Cocaine Dependence, Opioid Dependence, Sedative Dependence - Physical Exam Results Vital Signs: Vital Signs Temperature 97.5 F L 02/01/17 06:09 Pulse Rate 56 L 02/01/17 06:09 Respiratory Rate 18 02/01/17 06:09 Blood Pressure 108/71 02/01/17 06:09 O2 Sat by Pulse Oximetry (%) - Treatment Hospital Course: Detox Protocol Followed, Detoxed Safely, Responded well, Discharged Condition Good, Rehab Referral Accepted - Medication Discharge Medications: Ambulatory Orders Bupropion HCl [Wellbutrin Xl -] 150 mg PO DAILY #30 tab.sr.24h 01/27/17 - Diagnosis (1) Alcohol dependence with uncomplicated withdrawal Current Visit: Yes Status: Chronic (2) Cocaine dependence, uncomplicated Current Visit: Yes Status: Chronic (3) Opioid dependence with withdrawal Current Visit: Yes Status: Chronic (4) Nicotine dependence Current Visit: Yes Status: Chronic Qualifiers: Nicotine product type: cigarettes Substance use status: uncomplicated Qualified Code(s): F17.210 - Nicotine dependence, cigarettes, uncomplicated (5) Sedative, hypnotic or anxiolytic dependence with withdrawal, uncomplicated Current Visit: Yes Status: Chronic (6) GERD (gastroesophageal reflux disease) Current Visit: No Status: Chronic Qualifiers: Esophagitis presence: without esophagitis Qualified Code(s): K21.9 - Gastro -esophageal reflux disease without esophagitis (7) Hepatitis C Current Visit: No Status: Chronic Qualifiers: Viral hepatitis chronicity: chronic Hepatic coma status: without hepatic coma Qualified Code(s): B18.2 - Chronic viral hepatitis C - AMA Did Patient Leave Against Medical Advice: No
[2017-02-01 09:43] VITALS: BP 148/67; PULSE 67; TEMP 95.5
[2017-02-01] MEDS: cloNIDine HCL 0.1 MG TABLET PO SCH (11:08)
[2017-02-01] MEDS: PRENATAL VITAMINS W/ FOLIC ACID TABLET (FP) PO SCH (11:08)
[2017-02-01] MEDS: AZITHROMYCIN 250 MG TABLET PO SCH (11:09)
== END 2017-02-01 09:45 | disposition home or self-care (01) | DRG 773 ==
LOC: YASAS 22:51 → Y6N 23:32
PROVIDERS: ADMIT Internal Medicine; ATTEND Internal Medicine
PROC: HZ2ZZZZ Detoxification Services for Substance Abuse Treatment (ICD-10-PCS; principal; 2017-01-26)
DX: F11.23 Opioid dependence with withdrawal (principal); F10.230 Alcohol dependence with withdrawal, uncomplicated; F13.230 Sedative, hypnotic or anxiolytic dependence with withdrawal, uncomplicated; F14.20 Cocaine dependence, uncomplicated; F17.210 Nicotine dependence, cigarettes, uncomplicated; F41.9 Anxiety disorder, unspecified; F19.24 Other psychoactive substance dependence with psychoactive substance-induced mood disorder; K21.9 Gastro-esophageal reflux disease without esophagitis; B18.2 Chronic viral hepatitis C; H91.93 Unspecified hearing loss, bilateral; E66.9 Obesity, unspecified; Z68.30 Body mass index [BMI] 30.0-30.9, adult; Z86.69 Personal history of other diseases of the nervous system and sense organs; Z91.013 Allergy to seafood; Z91.012 Allergy to eggs; Z91.14 Patient's other noncompliance with medication regimen; Z59.0 Homelessness
CPT/HCPCS: 36415; 80053; 81003; 85027; 86593; 93005; 93010; 94640

== ENCOUNTER 2017-04-02 13:07 | Inpatient (IN) | payer OTHER ==
[2017-04-01] MEDS: NICOTINE 14 MG/24 HOURS TOPICAL PATCH TD SCH (15:03)
[2017-04-02 18:04] VITALS: BMI 30.7
--- NOTE | 2017-04-02 19:41 | HP ---
COWS - Scale Resting Pulse: 0= [place] 80 or Below Sweatin=Flushed/Facial Moisture Restless Observation: 3= Extraneous Movement Pupil Size: 1= Pupils >than Normal Bone or Joint Aches: 2= Severe Diffuse Aches Runny Nose/ Eye Tearin= Runny Nose/Eyes GI Upset > 30mins: 2= Nausea/Diarrhea Tremor Observation: 1= Tremor [place], Not Seen Yawning Observation: 1= 1-2x During Session Anxiety or Irritability: 1=Feels Anxious/Irritable Goose Flesh Skin: 3=Piloerection COWS Score: 18 CIWA Score - CIWA Score Nausea/Vomitin Muscle Tremors: 3 Anxiety: 3 Agitation: 2 Paroxysmal Sweats: 3 Orientation: 1-Uncertain about Date Tacttile Disturbances: 0-None Auditory Disturbances: 0-None Visual Disturbances: 0-None Headache: 0-None Present CIWA-Ar Total Score: 14 Admission [facility] Chief Complaint: WITHDRAWAL SYMPTOMS Allergies/Adverse Reactions: Allergies Allergy/AdvReac Type Severity Reaction Status Date / Time egg Allergy Intermediate Hives Verified 12/05/16 01:10 shellfish derived Allergy Intermediate Difficulty Verified 12/05/16 01:10 Breathing fish derived Allergy Difficulty Verified 12/05/16 01:10 Breathing No Known Drug Allergies Allergy Verified 12/05/16 01:10 seafood Allergy Intermediate Difficulty Uncoded 12/05/16 01:10 Breathing History of Present Illness: 41 Y.O. MAN WITH AN EXTENSIVE HISTORY OF ALCOHOL, HEROIN AND COCAINE DEPENDENCE IS HERE SEEKING DETOX. HE HAS HAD MULTIPLE ADMISSIONS FOR FOR DETOX WITH THE LAST BEING IN 01/2017. DOES NOT HAVE AN EXTENSIVE HISTORY OF DRUG AND ALCOHOL ABSTINENCE. - Ebola screening Have you traveled outside of the country in the last 21 days: No Have you had contact with anyone from an Ebola affected area: No Have you been sick,other than usual withdrawal symptoms: No - Review of Systems Constitutional: Chills, Diaphoresis, Loss of Appetite, Night Sweats, Unexplained wgt Loss EENT: reports: Tearing, Nose Congestion Respiratory: reports: No Symptoms reported Cardiac: reports: No Symptoms Reported GI: reports: Diarrhea, Nausea, Abdominal cramping : reports: No Symptoms Reported Musculoskeletal: reports: Back Pain Integumentary: reports: No Symptoms Reported Neuro: reports: Seizure (ETOH INDUCED), Tremors Endocrine: reports: No Symptoms Reported Hematology: reports: No Symptoms Reported Psychiatric: reports: Judgement Intact, Mood/Affect Appropiate, Anxious, Depressed Other Systems: Reviewed and Negative Patient History - Patient Medical History Hx Anemia: No Hx Asthma: No Hx Chronic Obstructive Pulmonary Disease (COPD): No Hx Cancer: No Hx Cardiac Disorders: No Hx Congestive Heart Failure: No Hx Hypertension: No Hx Hypercholesterolemia: No Hx Pacemaker: No HX Cerebrovascular Accident: No Hx Seizures: Yes (R/T ETOH WITHDRAWAL) Hx Dementia: No Hx Diabetes: No Hx Gastrointestinal Disorders: Yes (H/O GERD) Hx Liver Disease: No Hx Genitourinary Disorders: No Hx Sexually Transmitted Disorders: No Hx Renal Disease (ESRD): No Hx Thyroid Disease: No Hx Human Immunodeficiency Virus (HIV): No Hx Hepatitis C: Yes (NO TXMENT) Hx Depression: Yes (WELLBUTRIN non-compliant) Hx Suicide Attempt: No Hx Bipolar Disorder: No Hx Schizophrenia: No - Patient Surgical History Past Surgical History: Yes Hx Neurologic Surgery: No Hx Cataract Extraction: No Hx Cardiac Surgery: No Hx Lung Surgery: No Hx Breast Surgery: No Hx Breast Biopsy: No Hx Abdominal Surgery: No Hx Appendectomy: No Hx Cholecystectomy: Yes ( [place] 03/2011) Hx Genitourinary Surgery: No Hx Section: No Hx Orthopedic Surgery: No Other Surgical History: EAR SX BOTH EARS A CHILD-TUBE INSERTION Anesthesia Reaction: No - PPD History Previous Implant?: No Documented Results: Negative w/proof Implanted On Prior R Admission?: Yes Date: 10/09/16 Results: 0 mm PPD to be Administered?: No - Reproductive History Patient is a Female of Child Bearing Age (11 -55 yrs old): No - Smoking Cessation Smoking history: Current every day smoker Have you smoked in the past 12 months: Yes Aproximately how many cigarettes per day: 10 Cigars Per Day: 0 Hx Chewing Tobacco Use: No Initiated information on smoking cessation: Yes 'Breaking Loose' booklet given: 04/02/17 - Substance & Tx. History Hx Alcohol Use: Yes Hx Substance Use: Yes Substance Use Type: Alcohol, Cocaine, Heroin Hx Substance Use Treatment: Yes (DETOX: 01/2017) - Substances Abused Alcohol Route: Oral Frequency: Daily Amount used: liquor- 1 pint Age of first use: 16 Date of Last Use: 04/01/17 Heroin Route: Injection Frequency: Daily Amount used: 10 bags Age of first use: 30 Date of Last Use: 04/01/17 Cocaine Route: Injection Frequency: Daily Amount used: 1/2 gm Age of first use: 30 Date of Last Use: 04/01/17 Family Disease History - Family Disease History Family Disease History: Diabetes: Father, Heart Disease: Father, Mother (ashma and emphysema), Respiratory: Mother, Other: Brother (alcoholic) Admission Physical Exam [facility] - Vital Signs Vital Signs: Vital Signs - 24 hr 04/02/17 18:03 Temperature 96.7 F L Pulse Rate 50 L Respiratory 18 Rate Blood Pressure 133/77 - Physical General Appearance: Yes: Tremorous, Irritable, Sweating, Anxious HEENTM: Yes: Hearing grossly Normal, Normocephalic, Normal Voice Respiratory: Yes: Chest Non-Tender, Lungs Clear, Normal Breath Sounds, No Respiratory Distress, No Accessory Muscle Use Neck: Yes: No masses,lesions,Nodules, Trachea in good position Breast: Yes: Breast Exam Deferred Cardiology: Yes: Regular Rhythm, Bradycardia Abdominal: Yes: Non Tender, Flat, Soft Genitourinary: Yes: Other (NO COMPLAINTS REPORTED) Back: Yes: Normal Inspection Musculoskeletal: Yes: Back pain Extremities: Yes: Normal Inspection, Normal Range of Motion, Non-Tender Neurological: Yes: Alert, Normal Mood/Affect, Normal Response Integumentary: Yes: Normal Color, Dry, Warm, Track Lang Lymphatic: Yes: Within Normal Limits - Diagnostic (1) Alcohol dependence with uncomplicated withdrawal Current Visit: Yes Status: Chronic (2) Cocaine dependence, uncomplicated Current Visit: Yes Status: Chronic (3) Hepatitis C Current Visit: Yes Status: Chronic Qualifiers: Viral hepatitis chronicity: chronic Hepatic coma status: without hepatic coma Qualified Code(s): B18.2 - Chronic viral hepatitis C (4) Nicotine dependence Current Visit: Yes Status: Chronic Qualifiers: Nicotine product type: cigarettes Substance use status: uncomplicated Qualified Code(s): F17.210 - Nicotine dependence, cigarettes, uncomplicated (5) Opioid dependence with withdrawal Current Visit: Yes Status: Chronic (6) Seizure Current Visit: Yes Status: Chronic Cleared for Admission [facility] - Detox or Rehab [facility] Level of Care: Medically Managed Detox Regimen/Protocol: Methadone/Valium S Breath Alcohol Content Breath Alcohol Content: 0 Urine Drug Screen - Results Drug Screen Negative: No Urine Drug Screen Results: ALEXEY-Cocaine, OPI-Opiates
[2017-04-02] MEDS ORDERED: MAGNESIUM HYDROX 2400MG/30ML ORAL SUSPENSION 30 ML CUP PO PRN (19:44)
[2017-04-02] MEDS ORDERED: MAG HYDROX/AL HYDROX/SIMETH 30 ML UNIT-DOSE CUP PO PRN (19:44)
[2017-04-02] MEDS ORDERED: LOPERAMIDE HCL 2 MG CAPSULE PO PRN (19:44)
[2017-04-02] MEDS ORDERED: NICOTINE POLACRILEX 2 MG GUM BC PRN (19:44)
[2017-04-02] MEDS ORDERED: hydrOXYzine PAMOATE 50 MG CAPSULE (FP) PO PRN (19:44)
[2017-04-02] MEDS ORDERED: MENTHOL/PHENOL 1 EACH UD MM PRN (19:44)
[2017-04-02] MEDS ORDERED: guaiFENesin/D-METHORPHAN HB 10 ML UNIT-DOSE CUPS PO PRN (19:44)
[2017-04-02] MEDS ORDERED: P-EPHED 60MG/TRIPROLIDI 2.5MG TABLET PO PRN (19:44)
[2017-04-02] MEDS ORDERED: diazePAM 5 MG TABLET PO ONE (19:44)
[2017-04-02] MEDS ORDERED: METHADONE HCL 10 MG TABLET (FOR DETOX USE ONLY) PO ONE ×2 (19:44→23:00)
[2017-04-02] MEDS ORDERED: MAGNESIUM CITRATE 300 ML BOTTLE PO PRN (19:44)
[2017-04-02] MEDS: CYCLOBENZAPRINE HCL 10 MG TABLET (FP) PO PRN (20:37)
[2017-04-02] MEDS: THIAMINE HCL 100 MG TABLET (FP) PO SCH (22:51)
[2017-04-02] MEDS: diazePAM 5 MG TABLET PO SCH (22:51)
[2017-04-02 23:18] LABS: URINE APPEARANCE SLCLOUDY; URINE BILIRUBIN NEGATIVE (NEGATIVE); URINE BLOOD NEGATIVE (NEGATIVE); URINE COLOR AMBER; URINE GLUCOSE (UA) NEGATIVE (NEGATIVE); URINE KETONE NEGATIVE (NEGATIVE); URINE LEUK ESTERASE NEGATIVE (NEGATIVE); URINE NITRITE NEGATIVE (NEGATIVE)
[2017-04-02 23:47] LABS: URINE PROTEIN 1+ (NEGATIVE)
[2017-04-03 00:25] LABS: URINE HYALINE CAST 5 /lpf; URINE MUCUS MANY
[2017-04-03] MEDS: diazePAM 5 MG TABLET PO SCH ×3 (05:38→22:37)
[2017-04-03] MEDS ORDERED: METHADONE HCL 10 MG TABLET (FOR DETOX USE ONLY) PO SCH (10:00)
[2017-04-03 10:43] LABS: ALBUMIN 3.4 g/dl (3.4-5.0); ANION GAP 3 (8-16); BLOOD UREA NITROGEN 18 mg/dL (7-18); CALCIUM 8.4 mg/dL (8.5-10.1); CHLORIDE 105 mmol/L (98-107); CO2 31 mmol/L (21-32); GLUCOSE,RANDOM 85 mg/dL (74-106); POTASSIUM 4.2 mmol/L (3.5-5.1); SGOT/AST 63 U/L (15-37); SGPT/ALT 68 U/L (12-78); SODIUM 139 mmol/L (136-145)
[2017-04-03 10:45] LABS: ALK PHOS 83 U/L (45-117); BILIRUBIN,TOTAL 0.7 mg/dL (0.2-1.0); CREATININE 0.9 mg/dL (0.7-1.3); TOT PROT 6.9 g/dl (6.4-8.2)
[2017-04-03 10:47] LABS: HEMATOCRIT 39.4 % (35.4-49); HEMOGLOBIN 13.1 GM/dL (11.7-16.9); MCH 27.4 pg (25.7-33.7); MCHC 33.2 g/dl (32.0-35.9); MEAN CELL VOLUME 82.5 fl (80-96); MEAN PLT VOLUME 7.9 fl (7.5-11.1); PLATELET COUNT 170 K/MM3 (134-434); RBC 4.77 M/mm3 (4.00-5.60); RDW 14.4 % (11.9-15.9); WHITE BLOOD COUNT 4.1 K/mm3 (4.0-10.0)
[2017-04-03] MEDS: PRENATAL VITAMINS W/ FOLIC ACID TABLET (FP) PO SCH (11:11)
[2017-04-03] MEDS: diazePAM 5 MG TABLET PO PRN ×2 (11:13→17:46)
--- NOTE | 2017-04-03 12:36 | PN ---
[facility] CIWA - CIWA Score Nausea/Vomitin Muscle Tremors: 3 Anxiety: 3 Agitation: 3 Paroxysmal Sweats: 1-Minimal Palms Moist Orientation: 0-Oriented Tacttile Disturbances: 1-Very Mild Itch/Numbness Auditory Disturbances: 1-Very Mild Visual Disturbances: 0-None Headache: 2-Mild CIWA-Ar Total Score: 17 BHS COWS - Scale Resting Pulse: 0= [place] 80 or Below Sweatin= Chills/Flushing Restless Observation: 3= Extraneous Movement Pupil Size: 1= Pupils >than Normal Bone or Joint Aches: 2= Severe Diffuse Aches Runny Nose/ Eye Tearin= Runny Nose/Eyes GI Upset > 30mins: 2= Nausea/Diarrhea Tremor Observation of Outstretched Hands: 2= Slight Tremor Visible Yawning Observation: 1= 1-2x During Session Anxiety or Irritability: 2=Irritable/Anxious Goose Flesh Skin: 0=Smooth Skin COWS Score: 16 S Progress Note (SOAP) Subjective: ALERT,IRRITABLE,ANXIOUS,INTERRUPTED SLEEP,PAIN IN THE BODY AND BACK Objective: 04/03/17 12:33 Vital Signs Temperature 98.1 F 04/03/17 10:31 Pulse Rate 76 04/03/17 10:31 Respiratory Rate 18 04/03/17 10:31 Blood Pressure 129/86 04/03/17 10:31 O2 Sat by Pulse Oximetry (%) EKG MARKED SINUS BRADYCARDIA NO CHEST PAIN,NO SOB,NO DIZZINESS Laboratory Last Values WBC 4.1 K/mm3 (4.0-10.0) D 04/03/17 08:00 RBC 4.77 M/mm3 (4.00-5.60) 04/03/17 08:00 Hgb 13.1 GM/dL (11.7-16.9) 04/03/17 08:00 Hct 39.4 % (35.4-49) 04/03/17 08:00 MCV 82.5 fl (80-96) 04/03/17 08:00 MCH 27.4 pg (25.7-33.7) 04/03/17 08:00 MCHC 33.2 g/dl (32.0-35.9) 04/03/17 08:00 RDW 14.4 % (11.9-15.9) D 04/03/17 08:00 Plt Count 170 K/MM3 (134-434) D 04/03/17 08:00 MPV 7.9 fl (7.5-11.1) 04/03/17 08:00 Sodium 139 mmol/L (136-145) 04/03/17 08:00 Potassium 4.2 mmol/L (3.5-5.1) 04/03/17 08:00 Chloride 105 mmol/L (98-107) 04/03/17 08:00 Carbon Dioxide 31 mmol/L (21-32) 04/03/17 08:00 Anion Gap 3 (8-16) L 04/03/17 08:00 BUN 18 mg/dL (7-18) D 04/03/17 08:00 Creatinine 0.9 mg/dL (0.7-1.3) 04/03/17 08:00 Creat Clearance w eGFR > 60 (>60) 04/03/17 08:00 Random Glucose 85 mg/dL (74-106) 04/03/17 08:00 Calcium 8.4 mg/dL (8.5-10.1) L 04/03/17 08:00 Total Bilirubin 0.7 mg/dL (0.2-1.0) D 04/03/17 08:00 AST 63 U/L (15-37) H D 04/03/17 08:00 ALT 68 U/L (12-78) D 04/03/17 08:00 Alkaline Phosphatase 83 U/L (45-117) 04/03/17 08:00 Total Protein 6.9 g/dl (6.4-8.2) 04/03/17 08:00 Albumin 3.4 g/dl (3.4-5.0) 04/03/17 08:00 Urine Color [place] 04/02/17 21:00 Urine Appearance Slcloudy 04/02/17 21:00 Urine pH 5.0 (5.0-8.0) D 04/02/17 21:00 Ur Specific [place] 1.027 (1.001-1.035) 04/02/17 21:00 Urine Protein 1+ (NEGATIVE) H 04/02/17 21:00 Urine Glucose (UA) Negative (NEGATIVE) 04/02/17 21:00 Urine Ketones Negative (NEGATIVE) 04/02/17 21:00 Urine Blood Negative (NEGATIVE) 04/02/17 21:00 Urine Nitrite Negative (NEGATIVE) 04/02/17 21:00 Urine Bilirubin Negative (NEGATIVE) 04/02/17 21:00 Urine Urobilinogen 2.0 mg/dL (0.2-1.0) 04/02/17 21:00 Ur Leukocyte Esterase Negative (NEGATIVE) 04/02/17 21:00 Urine WBC (Auto) 7 /hpf (3-5) 04/02/17 21:00 Urine RBC (Auto) 26 /hpf (0-3) 04/02/17 21:00 Hyaline Casts 5 /lpf 04/02/17 21:00 Urine Mucus Many 04/02/17 21:00 HIV 1&2 Antibody Screen Negative 04/03/17 08:00 HIV P24 Antigen Negative 04/03/17 08:00 Assessment: 04/03/17 12:35 WITHDRAWAL SYMPTOM Plan: CONTINUE DETOX,REPEAT UA
--- NOTE | 2017-04-03 16:35 | CONSULT ---
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 Substance Abuse History: Confirmed by patient in this session.See details in current [facility] report : Smoking history: Current every day smoker. Have you smoked in the past 12 months: Yes. Aproximately how many cigarettes per day: 10. Cigars Per Day: 0. Hx Chewing Tobacco Use: No. Initiated information on smoking cessation: Yes. 'Breaking Loose' booklet given: 04/02/17. - Substance & Tx. History. Hx Alcohol Use: Yes. Hx Substance Use: Yes. Substance Use Type : Alcohol, Cocaine, Heroin. Hx Substance Use Treatment: Yes (DETOX: 01/2017). - Substances Abused. Alcohol. Route: Oral. Frequency: Daily. Amount used : liquor- 1 pint. Age of first use: 16. Date of Last Use: 04/01/17. Heroin. Route: Injection. Frequency: Daily. Amount used: 10 bags. Age of first use: 30. Date of Last Use: 04/01/17. Cocaine. Route: Injection. Frequency: Daily. Amount used: 1/2 gm. Age of first use: 30. Date of Last Use : 04/01/17 Medical History: GERD,hepatitis C,hearing impediment since childhood (past history of ear surgery),dyslipidemia,withdrawal seizures and cholecystectomy ( 2011). Psychiatric History: Patient admits to a history of one psychiatric hospitalization at [facility] (2011) for a self-described psychotic episode from cocaine use.In this interview,Mr Stanton endorses the diagnoses of MDD and Anxiety Disorder.States that he sees a private psychiatrist in [facility].Prescribed wellbutrin XL 150 mg/day but he is unable to document his last medication intake.Expresses no interest in resuming wellbutrin but patient is agreable with option of zolpidem at bedtime.No reported history of suicide attempts. Physical/Sexual Abuse/Trauma History: Patient denies. Additional Comment: Urine Drug Screen Results: ALEXEY-Cocaine, OPI-Opiates.Noted. Mental Status Exam - Mental Status Exam Alert and Oriented to: Time, Place, Person Cognitive Function: Good Patient Appearance: Well Groomed (tattoo on right arm) Mood: Withdrawn, Hopeful Affect: Appropriate, Normal Range Patient Behavior: Fatigued, Cooperative Speech Pattern: Clear Voice Loudness: Normal Thought Process: Intact, Goal Oriented Thought Disorder: Not Present Hallucinations: Denies Suicidal Ideation: Denies Homicidal Ideation: Denies Insight/Judgement: Poor Sleep: Poorly, Difficulty falling asleep Appetite: Good Muscle strength/Tone: Normal Gait/Station: Normal Psychiatric Findings - Problem List ([place] 1, 2,3) (1) Opioid dependence with withdrawal Current Visit: Yes Status: Acute (2) Alcohol dependence with uncomplicated withdrawal Current Visit: Yes Status: Acute (3) Cocaine dependence, uncomplicated Current Visit: Yes Status: Acute (4) Nicotine dependence Current Visit: Yes Status: Acute Qualifiers: Nicotine product type: cigarettes Substance use status: uncomplicated Qualified Code(s): F17.210 - Nicotine dependence, cigarettes, uncomplicated (5) Drug-induced mood disorder Current Visit: Yes Status: Acute (6) Insomnia Current Visit: Yes Status: Acute - Initial Treatment Plan Initial Treatment Plan: Psychoeducation provided in this session.Sleep hygiene recommended.Detoxification in progress.Wellbutrin not resumed (patient declines) .Ambien 10 mg po hs prn.Parasomnia discussed.Mr Stanton agrees with this careplan.Observation.
--- NOTE | 2017-04-03 16:47 | EKG ---
Test Reason : Blood Pressure : / mmHG Vent. Rate : 038 BPM Atrial Rate : 038 BPM P-R Int : 156 ms QRS Dur : 088 ms QT Int : 496 ms P-R-T Axes : 052 045 046 degrees QTc Int : 394 ms MARKED SINUS BRADYCARDIA ABNORMAL ECG WHEN COMPARED WITH ECG OF 27-JAN-2017 01:47, VENT. RATE HAS DECREASED BY 27 BPM Confirmed by RADHA HERRERA MD ([id number]) on 04/03/2017 4:47:01 PM Referred By: JERRELL TORRES Confirmed By:RADHA HERRERA MD
[2017-04-03] MEDS: cloNIDine HCL 0.1 MG TABLET PO SCH (22:37)
[2017-04-03] MEDS: CYCLOBENZAPRINE HCL 10 MG TABLET (FP) PO PRN (22:38)
[2017-04-03] MEDS: THIAMINE HCL 100 MG TABLET (FP) PO SCH (22:38)
[2017-04-03] MEDS: ZOLPIDEM TARTRATE 5 MG TABLET PO PRN (22:38)
[2017-04-04] MEDS: diazePAM 5 MG TABLET PO PRN ×5 (00:54→22:44)
[2017-04-04] MEDS: ACETAMINOPHEN 325 MG TABLET (FP) PO PRN ×3 (00:55→17:09)
[2017-04-04] MEDS: PRENATAL VITAMINS W/ FOLIC ACID TABLET (FP) PO SCH (10:47)
[2017-04-04] MEDS: METHADONE HCL 5 MG TABLET (FOR DETOX USE ONLY) PO SCH (10:47)
[2017-04-04] MEDS: NICOTINE 14 MG/24 HOURS TOPICAL PATCH TD SCH (10:47)
[2017-04-04] MEDS: diazePAM 5 MG TABLET PO SCH ×2 (10:48→22:43)
[2017-04-04] MEDS: cloNIDine HCL 0.1 MG TABLET PO SCH ×2 (10:48→22:43)
--- NOTE | 2017-04-04 12:33 | PN ---
[facility] CIWA - CIWA Score Nausea/Vomitin-No Nausea/No Vomiting Muscle Tremors: 4-Moderate,w/Arms Extend Anxiety: 3 Agitation: 3 Paroxysmal Sweats: 1-Minimal Palms Moist Orientation: 0-Oriented Tacttile Disturbances: 1-Very Mild Itch/Numbness Auditory Disturbances: 0-None Visual Disturbances: 0-None Headache: 0-None Present CIWA-Ar Total Score: 12 BHS COWS - Scale Resting Pulse: 2= [place] 101-120 Sweatin= Chills/Flushing Restless Observation: 1= Difficult to Sit Still Pupil Size: 0= Normal to Room Light Bone or Joint Aches: 1= Mild Discomfort Runny Nose/ Eye Tearin= Nasal Congestion GI Upset > 30mins: 1= Stomach Cramp Tremor Observation of Outstretched Hands: 2= Slight Tremor Visible Yawning Observation: 0= None Anxiety or Irritability: 1=Feels Anxious/Irritable Goose Flesh Skin: 0=Smooth Skin COWS Score: 10 S Progress Note (SOAP) Subjective: general body aches sweat agitation irritable alert tremor Objective: 04/04/17 12:33 Vital Signs Temperature 97.3 F L 04/04/17 10:00 Pulse Rate 119 H 04/04/17 10:00 Respiratory Rate 20 04/04/17 10:00 Blood Pressure 136/71 04/04/17 10:00 O2 Sat by Pulse Oximetry (%) Laboratory Last Values WBC 4.1 K/mm3 (4.0-10.0) D 04/03/17 08:00 RBC 4.77 M/mm3 (4.00-5.60) 04/03/17 08:00 Hgb 13.1 GM/dL (11.7-16.9) 04/03/17 08:00 Hct 39.4 % (35.4-49) 04/03/17 08:00 MCV 82.5 fl (80-96) 04/03/17 08:00 MCH 27.4 pg (25.7-33.7) 04/03/17 08:00 MCHC 33.2 g/dl (32.0-35.9) 04/03/17 08:00 RDW 14.4 % (11.9-15.9) D 04/03/17 08:00 Plt Count 170 K/MM3 (134-434) D 04/03/17 08:00 MPV 7.9 fl (7.5-11.1) 04/03/17 08:00 Sodium 139 mmol/L (136-145) 04/03/17 08:00 Potassium 4.2 mmol/L (3.5-5.1) 04/03/17 08:00 Chloride 105 mmol/L (98-107) 04/03/17 08:00 Carbon Dioxide 31 mmol/L (21-32) 04/03/17 08:00 Anion Gap 3 (8-16) L 04/03/17 08:00 BUN 18 mg/dL (7-18) D 04/03/17 08:00 Creatinine 0.9 mg/dL (0.7-1.3) 04/03/17 08:00 Creat Clearance w eGFR > 60 (>60) 04/03/17 08:00 Random Glucose 85 mg/dL (74-106) 04/03/17 08:00 Calcium 8.4 mg/dL (8.5-10.1) L 04/03/17 08:00 Total Bilirubin 0.7 mg/dL (0.2-1.0) D 04/03/17 08:00 AST 63 U/L (15-37) H D 04/03/17 08:00 ALT 68 U/L (12-78) D 04/03/17 08:00 Alkaline Phosphatase 83 U/L (45-117) 04/03/17 08:00 Total Protein 6.9 g/dl (6.4-8.2) 04/03/17 08:00 Albumin 3.4 g/dl (3.4-5.0) 04/03/17 08:00 Urine Color [place] 04/02/17 21:00 Urine Appearance Slcloudy 04/02/17 21:00 Urine pH 5.0 (5.0-8.0) D 04/02/17 21:00 Ur Specific [place] 1.027 (1.001-1.035) 04/02/17 21:00 Urine Protein 1+ (NEGATIVE) H 04/02/17 21:00 Urine Glucose (UA) Negative (NEGATIVE) 04/02/17 21:00 Urine Ketones Negative (NEGATIVE) 04/02/17 21:00 Urine Blood Negative (NEGATIVE) 04/02/17 21:00 Urine Nitrite Negative (NEGATIVE) 04/02/17 21:00 Urine Bilirubin Negative (NEGATIVE) 04/02/17 21:00 Urine Urobilinogen 2.0 mg/dL (0.2-1.0) 04/02/17 21:00 Ur Leukocyte Esterase Negative (NEGATIVE) 04/02/17 21:00 Urine WBC (Auto) 7 /hpf (3-5) 04/02/17 21:00 Urine RBC (Auto) 26 /hpf (0-3) 04/02/17 21:00 Hyaline Casts 5 /lpf 04/02/17 21:00 Urine Mucus Many 04/02/17 21:00 RPR Titer Nonreactive (NONREACTIVE) 04/03/17 08:00 HIV 1&2 Antibody Screen Negative 04/03/17 08:00 HIV P24 Antigen Negative 04/03/17 08:00 lab noted Assessment: 04/04/17 12:33 withdrawal sx Plan: continue detox
[2017-04-04] MEDS: CYCLOBENZAPRINE HCL 10 MG TABLET (FP) PO PRN ×2 (12:58→22:43)
[2017-04-04] MEDS: ZOLPIDEM TARTRATE 5 MG TABLET PO PRN (22:43)
[2017-04-04] MEDS: THIAMINE HCL 100 MG TABLET (FP) PO SCH (22:43)
[2017-04-05] MEDS: ACETAMINOPHEN 325 MG TABLET (FP) PO PRN ×2 (04:02→13:01)
[2017-04-05] MEDS: diazePAM 5 MG TABLET PO PRN ×3 (04:02→17:25)
[2017-04-05] MEDS: METHADONE HCL 5 MG TABLET (FOR DETOX USE ONLY) PO SCH (11:01)
[2017-04-05] MEDS: NICOTINE 14 MG/24 HOURS TOPICAL PATCH TD SCH (11:01)
[2017-04-05] MEDS: cloNIDine HCL 0.1 MG TABLET PO SCH ×2 (11:01→22:35)
[2017-04-05] MEDS: PRENATAL VITAMINS W/ FOLIC ACID TABLET (FP) PO SCH (11:01)
[2017-04-05] MEDS: diazePAM 5 MG TABLET PO SCH ×2 (11:02→22:35)
--- NOTE | 2017-04-05 12:24 | PN ---
S Progress Note (SOAP) Subjective: ALERT,IRRITABLE,ANXIOUS,INTERRUPTED SLEEP,TREMOR Objective: 04/05/17 12:23 Vital Signs Temperature 96.6 F L 04/05/17 11:48 Pulse Rate 78 04/05/17 11:48 Respiratory Rate 18 04/05/17 11:48 Blood Pressure 107/57 04/05/17 11:48 O2 Sat by Pulse Oximetry (%) Assessment: 04/05/17 12:24 WITHDRAWAL SYMPTOM Plan: CONTINUE DETOX
[2017-04-05] MEDS: IBUPROFEN 400 MG TABLET (FP) PO PRN (17:25)
[2017-04-05] MEDS: THIAMINE HCL 100 MG TABLET (FP) PO SCH (22:35)
[2017-04-05] MEDS: ZOLPIDEM TARTRATE 5 MG TABLET PO PRN (22:35)
[2017-04-05] MEDS: CYCLOBENZAPRINE HCL 10 MG TABLET (FP) PO PRN (22:36)
[2017-04-06] MEDS ORDERED: diazePAM 5 MG TABLET PO SCH (10:00)
[2017-04-06] MEDS ORDERED: METHADONE HCL 10 MG TABLET (FOR DETOX USE ONLY) PO SCH (10:00)
[2017-04-06] MEDS: cloNIDine HCL 0.1 MG TABLET PO SCH ×2 (11:07→22:27)
[2017-04-06] MEDS: NICOTINE 14 MG/24 HOURS TOPICAL PATCH TD SCH (11:08)
[2017-04-06] MEDS: PRENATAL VITAMINS W/ FOLIC ACID TABLET (FP) PO SCH (11:08)
[2017-04-06] MEDS: CYCLOBENZAPRINE HCL 5 MG TABLET PO PRN (12:43)
[2017-04-06] MEDS: IBUPROFEN 400 MG TABLET (FP) PO PRN (12:43)
--- NOTE | 2017-04-06 13:30 | PN ---
S Progress Note (SOAP) Subjective: Alert, tremors, chills, interrupted sleep, decrease appetite, body aches Objective: 04/06/17 13:29 Last Vital Signs Temp Pulse Resp BP Pulse Ox 96.6 F L 48 L 18 119/80 04/06/17 10:23 04/06/17 10:23 04/06/17 10:23 04/06/17 10:23 Laboratory Last Values WBC 4.1 K/mm3 (4.0-10.0) D 04/03/17 08:00 RBC 4.77 M/mm3 (4.00-5.60) 04/03/17 08:00 Hgb 13.1 GM/dL (11.7-16.9) 04/03/17 08:00 Hct 39.4 % (35.4-49) 04/03/17 08:00 MCV 82.5 fl (80-96) 04/03/17 08:00 MCH 27.4 pg (25.7-33.7) 04/03/17 08:00 MCHC 33.2 g/dl (32.0-35.9) 04/03/17 08:00 RDW 14.4 % (11.9-15.9) D 04/03/17 08:00 Plt Count 170 K/MM3 (134-434) D 04/03/17 08:00 MPV 7.9 fl (7.5-11.1) 04/03/17 08:00 Sodium 139 mmol/L (136-145) 04/03/17 08:00 Potassium 4.2 mmol/L (3.5-5.1) 04/03/17 08:00 Chloride 105 mmol/L (98-107) 04/03/17 08:00 Carbon Dioxide 31 mmol/L (21-32) 04/03/17 08:00 Anion Gap 3 (8-16) L 04/03/17 08:00 BUN 18 mg/dL (7-18) D 04/03/17 08:00 Creatinine 0.9 mg/dL (0.7-1.3) 04/03/17 08:00 Creat Clearance w eGFR > 60 (>60) 04/03/17 08:00 Random Glucose 85 mg/dL (74-106) 04/03/17 08:00 Calcium 8.4 mg/dL (8.5-10.1) L 04/03/17 08:00 Total Bilirubin 0.7 mg/dL (0.2-1.0) D 04/03/17 08:00 AST 63 U/L (15-37) H D 04/03/17 08:00 ALT 68 U/L (12-78) D 04/03/17 08:00 Alkaline Phosphatase 83 U/L (45-117) 04/03/17 08:00 Total Protein 6.9 g/dl (6.4-8.2) 04/03/17 08:00 Albumin 3.4 g/dl (3.4-5.0) 04/03/17 08:00 Urine Color [place] 04/02/17 21:00 Urine Appearance Slcloudy 04/02/17 21:00 Urine pH 5.0 (5.0-8.0) D 04/02/17 21:00 Ur Specific [place] 1.027 (1.001-1.035) 04/02/17 21:00 Urine Protein 1+ (NEGATIVE) H 04/02/17 21:00 Urine Glucose (UA) Negative (NEGATIVE) 04/02/17 21:00 Urine Ketones Negative (NEGATIVE) 04/02/17 21:00 Urine Blood Negative (NEGATIVE) 04/02/17 21:00 Urine Nitrite Negative (NEGATIVE) 04/02/17 21:00 Urine Bilirubin Negative (NEGATIVE) 04/02/17 21:00 Urine Urobilinogen 2.0 mg/dL (0.2-1.0) 04/02/17 21:00 Ur Leukocyte Esterase Negative (NEGATIVE) 04/02/17 21:00 Urine WBC (Auto) 7 /hpf (3-5) 04/02/17 21:00 Urine RBC (Auto) 26 /hpf (0-3) 04/02/17 21:00 Hyaline Casts 5 /lpf 04/02/17 21:00 Urine Mucus Many 04/02/17 21:00 RPR Titer Nonreactive (NONREACTIVE) 04/03/17 08:00 HIV 1&2 Antibody Screen Negative 04/03/17 08:00 HIV P24 Antigen Negative 04/03/17 08:00 Labs noted Assessment: 04/06/17 13:30withdrawal symptoms Plan: Continue Detox Increase fluids Continue to monitor
[2017-04-06] MEDS: THIAMINE HCL 100 MG TABLET (FP) PO SCH (22:27)
[2017-04-06] MEDS: ZOLPIDEM TARTRATE 5 MG TABLET PO PRN (22:27)
[2017-04-07] MEDS: IBUPROFEN 400 MG TABLET (FP) PO PRN (05:48)
[2017-04-07] MEDS: CYCLOBENZAPRINE HCL 5 MG TABLET PO PRN (05:48)
[2017-04-07] MEDS ORDERED: METHADONE HCL 5 MG TABLET (FOR DETOX USE ONLY) PO SCH (06:00)
[2017-04-07 07:35] VITALS: BP 113/72; PULSE 48; TEMP 97.2
--- NOTE | 2017-04-07 08:32 | DS ---
[facility] Detox Discharge Summary Admission Date: 04/02/17 Discharge Date: 04/07/17 - History Present History: Alcohol Dependence, Cocaine Dependence - Physical Exam Results Vital Signs: Vital Signs Temperature 97.2 F L 04/07/17 05:00 Pulse Rate 48 L 04/07/17 05:00 Respiratory Rate 20 04/07/17 05:00 Blood Pressure 113/72 04/07/17 05:00 O2 Sat by Pulse Oximetry (%) - Treatment Hospital Course: Detox Protocol Followed, Detoxed Safely, Responded well, Discharged Condition Good - Medication Discharge Medications: Ambulatory Orders Bupropion HCl [Wellbutrin Xl -] 150 mg PO DAILY #30 tab.sr.24h 01/27/17 - Diagnosis (1) Alcohol dependence with uncomplicated withdrawal Current Visit: Yes Status: Acute (2) Cocaine dependence, uncomplicated Current Visit: Yes Status: Acute (3) Nicotine dependence Current Visit: Yes Status: Acute Qualifiers: Nicotine product type: cigarettes Substance use status: uncomplicated Qualified Code(s): F17.210 - Nicotine dependence, cigarettes, uncomplicated (4) Hepatitis C Current Visit: Yes Status: Chronic Qualifiers: Viral hepatitis chronicity: chronic Hepatic coma status: without hepatic coma Qualified Code(s): B18.2 - Chronic viral hepatitis C (5) Opioid dependence with withdrawal Current Visit: Yes Status: Chronic - AMA Did Patient Leave Against Medical Advice: No
== END 2017-04-07 08:56 | disposition home or self-care (01) | DRG 773 ==
LOC: YASAS 13:07 → Y6N 18:06
PROVIDERS: ADMIT Internal Medicine; ATTEND Internal Medicine
PROC: HZ2ZZZZ Detoxification Services for Substance Abuse Treatment (ICD-10-PCS; principal; 2017-04-02)
DX: F11.23 Opioid dependence with withdrawal (principal); F10.230 Alcohol dependence with withdrawal, uncomplicated; F14.20 Cocaine dependence, uncomplicated; F17.210 Nicotine dependence, cigarettes, uncomplicated; F19.24 Other psychoactive substance dependence with psychoactive substance-induced mood disorder; G47.00 Insomnia, unspecified; B18.2 Chronic viral hepatitis C; R00.1 Bradycardia, unspecified; K21.9 Gastro-esophageal reflux disease without esophagitis; Z86.69 Personal history of other diseases of the nervous system and sense organs; Z91.012 Allergy to eggs; Z91.013 Allergy to seafood; Z91.14 Patient's other noncompliance with medication regimen; Z59.0 Homelessness
CPT/HCPCS: 36415; 80053; 81003; 81015; 85027; 86593; 87389; 93005; 93010

== ENCOUNTER 2017-07-31 13:07 | Inpatient (IN) | payer OTHER ==
[2017-07-31 14:34] VITALS: BMI 32.1
--- NOTE | 2017-07-31 18:10 | HP ---
COWS - Scale Resting Pulse: 1= [place] 81-100 Sweatin=Flushed/Facial Moisture Restless Observation: 3= Extraneous Movement Pupil Size: 2= Moderately Dilated Bone or Joint Aches: 2= Severe Diffuse Aches Runny Nose/ Eye Tearin= Runny Nose/Eyes GI Upset > 30mins: 3= Vomiting/Diarrhea Tremor Observation: 2= Slight Tremor Visible Yawning Observation: 2= >3x During Session Anxiety or Irritability: 2=Irritable/Anxious Goose Flesh Skin: 0=Smooth Skin COWS Score: 21 CIWA Score - CIWA Score Nausea/Vomitin Muscle Tremors: 3 Anxiety: 3 Agitation: 3 Paroxysmal Sweats: 1-Minimal Palms Moist Orientation: 0-Oriented Tacttile Disturbances: 2-Mild Itch/Numbness/Burn Auditory Disturbances: 2-Mild Harshness/Frighten Visual Disturbances: 1-Very Mild Sensitivity Headache: 2-Mild CIWA-Ar Total Score: 20 Admission ROS BHS - HPI Chief Complaint: i need help to stop using heroin and xanax Allergies/Adverse Reactions: Allergies Allergy/AdvReac Type Severity Reaction Status Date / Time egg Allergy Intermediate Hives Verified 06/04/17 22:27 shellfish derived Allergy Intermediate Difficulty Verified 06/04/17 22:27 Breathing fish derived Allergy Difficulty Verified 06/04/17 22:27 Breathing No Known Drug Allergies Allergy Verified 06/04/17 22:27 seafood Allergy Intermediate Difficulty Uncoded 06/04/17 22:27 Breathing History of Present Illness: this 42 years old male with heroin,alcohol,xANAX,COCAINE DEPENDENCE,SEEKING DETOX,WITHDRAWAL SYMPTOM,LAST DETOX [facility] 05/25/17 TO 05/27/17 SEIZURE LAST 6 MONTHS HEPATITIS C FOLLOW UP WITH [facility] NICOTINE DEPENDENCE LONGEST PERIOD OF SOBRIETY 3 MONTHS ANXIETY,DEPRESSION,INSOMNIA Exam Limitations: No Limitations - Ebola screening Have you traveled outside of the country in the last 21 days: No (N) Have you had contact with anyone from an Ebola affected area: No Have you been sick,other than usual withdrawal symptoms: No Do you have a fever: No - Review of Systems Constitutional: Chills, Loss of Appetite, Malaise, Night Sweats, Changes in sleep EENT: reports: Tearing, Nose Congestion Respiratory: reports: No Symptoms reported Cardiac: reports: No Symptoms Reported GI: reports: Nausea, Vomiting, Abdominal cramping : reports: No Symptoms Reported Musculoskeletal: reports: Back Pain, Joint Pain, Muscle Pain, Joint Stiffness Integumentary: reports: Dryness Neuro: reports: Headache, Tremors Endocrine: reports: No Symptoms Reported Hematology: reports: No Symptoms Reported Psychiatric: reports: No Sypmtoms Reported, Judgement Intact, Mood/Affect Appropiate, Anxious, Depressed Patient History - Patient Medical History Hx Anemia: No Hx Asthma: No Hx Chronic Obstructive Pulmonary Disease (COPD): No Hx Cancer: No Hx Cardiac Disorders: No Hx Congestive Heart Failure: No Hx Hypertension: Yes (Not on medication) Hx Hypercholesterolemia: No Hx Pacemaker: No HX Cerebrovascular Accident: No Hx Seizures: Yes (R/T ETOH WITHDRAWAL. Not on medication LAST 6 MONTHS) Hx Dementia: No Hx Diabetes: No Hx Gastrointestinal Disorders: Yes (H/O GERD- Not on medication) Hx Liver Disease: No Hx Genitourinary Disorders: No Hx Sexually Transmitted Disorders: No Hx Renal Disease (ESRD): No Hx Thyroid Disease: No Hx Human Immunodeficiency Virus (HIV): No (LAST 06/06 NEGATIVE) Hx Hepatitis C: Yes (Not treated) Hx Depression: Yes ([place]) Hx Suicide Attempt: No (Denies suicidal ideation at this time) Hx Bipolar Disorder: Yes ([place], Seroquel) Hx Schizophrenia: No Other Medical History: NO SUICIDAL,NO HOMICIDAL - Patient Surgical History Past Surgical History: Yes Hx Neurologic Surgery: No Hx Cataract Extraction: No Hx Cardiac Surgery: No Hx Lung Surgery: No Hx Breast Surgery: No Hx Breast Biopsy: No Hx Abdominal Surgery: No Hx Appendectomy: No Hx Cholecystectomy: Yes ( [place] 03/2011) Hx Genitourinary Surgery: No Hx Section: No Hx Orthopedic Surgery: No Other Surgical History: EAR SX BOTH EARS A CHILD-TUBE INSERTION Anesthesia Reaction: No - PPD History Previous Implant?: Yes Documented Results: Negative w/proof Implanted On Prior R Admission?: Yes Date: 10/09/16 Results: 0 mm PPD to be Administered?: No - Smoking Cessation Smoking history: Current every day smoker Have you smoked in the past 12 months: Yes Aproximately how many cigarettes per day: 10 Cigars Per Day: 0 Hx Chewing Tobacco Use: No Initiated information on smoking cessation: Yes 'Breaking Loose' booklet given: 07/31/17 - Substance & Tx. History Hx Alcohol Use: Yes Hx Substance Use: Yes Substance Use Type: Alcohol, Cocaine Hx Substance Use Treatment: Yes ([facility] 05/25/17 TO 05/27/17 NOT CMPLETED) - Substances Abused Alcohol Route: Oral Frequency: Daily Amount used: 6 PACKS Age of first use: 16 Date of Last Use: 07/30/17 Cocaine Route: Smoking Frequency: Daily Amount used: $20 Age of first use: 30 Date of Last Use: 07/30/17 Heroin Route: Injection Frequency: Daily Amount used: 10-12 BAGS Age of first use: 30 Date of Last Use: 07/30/17 Family Disease History - Family Disease History Family Disease History: Diabetes: Father (), Heart Disease: Father, Mother (ashma and emphysema- ), Respiratory: Mother, Other: Brother ( alcoholic) Admission Physical Exam [facility] - Vital Signs Vital Signs: Vital Signs - 24 hr 07/31/17 14:32 Temperature 98.2 F Pulse Rate 86 Respiratory 21 Rate Blood Pressure 144/81 - Physical General Appearance: Yes: Moderate Distress, Tremorous, Irritable, Sweating, Anxious HEENTM: Yes: Normal ENT Inspection, ADELA, Pharynx Normal, Other (hard of hearing both) Respiratory: Yes: Lungs Clear, Normal Breath Sounds, No Respiratory Distress Neck: Yes: Within Normal Limits, Supple, Trachea in good position Breast: Yes: Within Normal Limits Cardiology: Yes: Within Normal Limits, Regular Rhythm, Regular Rate, S1, S2 Abdominal: Yes: Within Normal Limits, Normal Bowel Sounds, Non Tender, Flat, Soft Genitourinary: Yes: Within Normal Limits Back: Yes: Within Normal Limits, Normal Inspection, Muscle Spasm Musculoskeletal: Yes: full range of Motion, Back pain, Joint Stiffness, Muscle Pain Extremities: Yes: Within Normal Limits, Normal Range of Motion, Tremors, Inflammation Neurological: Yes: Fully Oriented, Alert, Motor Strength 5/5 Integumentary: Yes: Dry, Track Lang Lymphatic: Yes: Within Normal Limits - Diagnostic (1) Opioid dependence with withdrawal Current Visit: No Status: Acute (2) Alcohol dependence with uncomplicated withdrawal Current Visit: No Status: Acute (3) Insomnia Current Visit: No Status: Acute (4) Sedative, hypnotic or anxiolytic dependence with withdrawal, uncomplicated Current Visit: No Status: Acute (5) Bipolar disorder Current Visit: No Status: Chronic Comment: As per self-report and existing records.currently asymptomatic.Well-contolled on lithium and risperdal. (6) GERD (gastroesophageal reflux disease) Current Visit: No Status: Chronic Qualifiers: Esophagitis presence: without esophagitis Qualified Code(s): K21.9 - Gastro -esophageal reflux disease without esophagitis (7) Hepatitis C Current Visit: No Status: Chronic Qualifiers: Viral hepatitis chronicity: chronic Hepatic coma status: without hepatic coma Qualified Code(s): B18.2 - Chronic viral hepatitis C (8) Nicotine dependence Current Visit: No Status: Chronic Qualifiers: Nicotine product type: cigarettes Substance use status: uncomplicated Qualified Code(s): F17.210 - Nicotine dependence, cigarettes, uncomplicated (9) Seizure Current Visit: No Status: Chronic (10) hearing loss both ears Current Visit: No Status: Chronic Comment: DUE TO CHILDHOOD EAR INFECTIONS (11) Intravenous drug user Current Visit: Yes Status: Acute Cleared for Admission S - Detox or Rehab S Level of Care: Medically Managed Detox Regimen/Protocol: Methadone/Valium S Breath Alcohol Content Breath Alcohol Content: 0 Urine Drug Screen - Results Drug Screen Negative: No Urine Drug Screen Results: ALEXEY-Cocaine, OPI-Opiates, BZO-Benzodiazepines, TCA- Tricyclic Antidepress
[2017-07-31] MEDS ORDERED: P-EPHED 60MG/TRIPROLIDI 2.5MG TABLET PO PRN (18:25)
[2017-07-31] MEDS ORDERED: MAGNESIUM CITRATE 300 ML BOTTLE PO PRN (18:25)
[2017-07-31] MEDS ORDERED: MENTHOL/PHENOL 1 EACH UD MM PRN (18:25)
[2017-07-31] MEDS ORDERED: MAGNESIUM HYDROX 2400MG/30ML ORAL SUSPENSION 30 ML CUP PO PRN (18:25)
[2017-07-31] MEDS ORDERED: MAG HYDROX/AL HYDROX/SIMETH 30 ML UNIT-DOSE CUP PO PRN (18:25)
[2017-07-31] MEDS ORDERED: NICOTINE POLACRILEX 2 MG GUM BC PRN (18:25)
[2017-07-31] MEDS ORDERED: diazePAM 5 MG TABLET PO ONE (18:25)
[2017-07-31] MEDS ORDERED: METHADONE HCL 10 MG TABLET (FOR DETOX USE ONLY) PO ONE ×2 (18:25→23:00)
[2017-07-31] MEDS ORDERED: guaiFENesin/D-METHORPHAN HB 10 ML UNIT-DOSE CUPS PO PRN (18:25)
[2017-07-31] MEDS ORDERED: hydrOXYzine PAMOATE 25 MG CAPSULE (FP) PO PRN (18:25)
[2017-07-31] MEDS ORDERED: LOPERAMIDE HCL 2 MG CAPSULE PO PRN (18:25)
[2017-07-31] MEDS: NICOTINE 21 MG/24 HOURS TOPICAL PATCH TD SCH (20:12)
[2017-07-31] MEDS ORDERED: MELATONIN 5 MG TABLETS PO PRN (22:00)
[2017-07-31] MEDS: THIAMINE HCL 100 MG TABLET (FP) PO SCH (22:53)
[2017-07-31] MEDS: diazePAM 5 MG TABLET PO SCH (22:53)
[2017-07-31] MEDS: cloNIDine HCL 0.1 MG TABLET PO SCH (22:53)
[2017-08-01] MEDS: ACETAMINOPHEN 325 MG TABLET (FP) PO PRN ×3 (01:22→17:03)
[2017-08-01] MEDS: diazePAM 5 MG TABLET PO PRN ×3 (01:22→17:02)
[2017-08-01] MEDS: diazePAM 5 MG TABLET PO SCH ×3 (05:44→22:26)
[2017-08-01] MEDS: CYCLOBENZAPRINE HCL 10 MG TABLET (FP) PO PRN (05:44)
[2017-08-01] MEDS ORDERED: METHADONE HCL 10 MG TABLET (FOR DETOX USE ONLY) PO SCH (10:00)
[2017-08-01 10:08] LABS: HEMATOCRIT 34.6 % (35.4-49); HEMOGLOBIN 12.3 GM/dL (11.7-16.9); MCH 29.9 pg (25.7-33.7); MCHC 35.5 g/dl (32.0-35.9); MEAN CELL VOLUME 84.3 fl (80-96); MEAN PLT VOLUME 8.3 fl (7.5-11.1); PLATELET COUNT 127 K/MM3 (134-434); RBC 4.11 M/mm3 (4.00-5.60); RDW 13.8 % (11.9-15.9); WHITE BLOOD COUNT 4.7 K/mm3 (4.0-10.0)
[2017-08-01 10:21] LABS: ALBUMIN 3.4 g/dl (3.4-5.0); ALK PHOS 61 U/L (45-117); ANION GAP 4 (8-16); BILIRUBIN,TOTAL 0.4 mg/dL (0.2-1.0); BLOOD UREA NITROGEN 10 mg/dL (7-18); CALCIUM 8.2 mg/dL (8.5-10.1); CHLORIDE 104 mmol/L (98-107); CO2 31 mmol/L (21-32); CREATININE 0.9 mg/dL (0.7-1.3); GLUCOSE,RANDOM 84 mg/dL (74-106); POTASSIUM 3.9 mmol/L (3.5-5.1); SGOT/AST 31 U/L (15-37); SGPT/ALT 47 U/L (12-78); SODIUM 139 mmol/L (136-145); TOT PROT 6.4 g/dl (6.4-8.2)
[2017-08-01] MEDS: PRENATAL VITAMINS W/ FOLIC ACID TABLET (FP) PO SCH (10:22)
[2017-08-01] MEDS: cloNIDine HCL 0.1 MG TABLET PO SCH ×2 (10:22→22:26)
[2017-08-01] MEDS: NICOTINE 21 MG/24 HOURS TOPICAL PATCH TD SCH (10:22)
[2017-08-01 13:05] LABS: URINE APPEARANCE CLEAR; URINE BILIRUBIN NEGATIVE (<2.0 mg/dL); URINE COLOR YELLOW; URINE GLUCOSE (UA) NEGATIVE (NEGATIVE); URINE KETONE NEGATIVE (NEGATIVE); URINE LEUK ESTERASE NEGATIVE (NEGATIVE); URINE NITRITE NEGATIVE (NEGATIVE); URINE PROTEIN NEGATIVE (NEGATIVE); URINE UROBILINOGEN NEGATIVE mg/dL (0.2-1.0)
--- NOTE | 2017-08-01 13:27 | EKG ---
Test Reason : Blood Pressure : / mmHG Vent. Rate : 040 BPM Atrial Rate : 040 BPM P-R Int : 178 ms QRS Dur : 090 ms QT Int : 484 ms P-R-T Axes : 064 047 043 degrees QTc Int : 394 ms MARKED SINUS BRADYCARDIA ABNORMAL ECG WHEN COMPARED WITH ECG OF 04-JUN-2017 22:59, VENT. RATE HAS DECREASED BY 28 BPM Confirmed by BAMBI ALANIS MD ([id number]) on 08/01/2017 1:26:49 PM Referred By: Confirmed By:BAMBI ALANIS MD
[2017-08-01] MEDS: IBUPROFEN 400 MG TABLET (FP) PO PRN (13:47)
--- NOTE | 2017-08-01 15:34 | PN ---
[facility] CIWA - CIWA Score Nausea/Vomitin Muscle Tremors: 4-Moderate,w/Arms Extend Anxiety: 3 Agitation: 3 Paroxysmal Sweats: 3 Orientation: 0-Oriented Tacttile Disturbances: 1-Very Mild Itch/Numbness Auditory Disturbances: 0-None Visual Disturbances: 0-None Headache: 1-Very Mild CIWA-Ar Total Score: 18 BHS COWS - Scale Resting Pulse: 0= [place] 80 or Below Sweatin= Chills/Flushing Restless Observation: 3= Extraneous Movement Pupil Size: 0= Normal to Room Light Bone or Joint Aches: 2= Severe Diffuse Aches Runny Nose/ Eye Tearin= Runny Nose/Eyes GI Upset > 30mins: 2= Nausea/Diarrhea Tremor Observation of Outstretched Hands: 2= Slight Tremor Visible Yawning Observation: 1= 1-2x During Session Anxiety or Irritability: 2=Irritable/Anxious Goose Flesh Skin: 0=Smooth Skin COWS Score: 15 S Progress Note (SOAP) Subjective: Headache, tremor, restless, nausea and diarrhea x 2 days (instructed to notify nurse) Objective: 08/01/17 15:31 Last Vital Signs Temp Pulse Resp BP Pulse Ox 97.5 F L 48 L 18 136/94 08/01/17 14:04 08/01/17 14:04 08/01/17 14:04 08/01/17 14:04 Noted with bradycardia (asymptomatic) Laboratory Tests 08/01/17 08/01/17 08/01/17 08:00 08:00 08:00 WBC 4.7 RBC 4.11 Hgb 12.3 Hct 34.6 L MCV 84.3 MCH 29.9 MCHC 35.5 RDW 13.8 Plt Count 127 L D MPV 8.3 D Sodium 139 Potassium 3.9 Chloride 104 Carbon Dioxide 31 Anion Gap 4 L BUN 10 D Creatinine 0.9 Creat Clearance w eGFR > 60 Random Glucose 84 Calcium 8.2 L Total Bilirubin 0.4 D AST 31 D ALT 47 Alkaline Phosphatase 61 D Total Protein 6.4 Albumin 3.4 Urine Color Urine Appearance Urine pH Ur Specific [place] Urine Protein Urine Glucose (UA) Urine Ketones Urine Blood Urine Nitrite Urine Bilirubin Urine Urobilinogen Ur Leukocyte Esterase RPR Titer Nonreactive 08/01/17 10:30 WBC RBC Hgb Hct MCV MCH MCHC RDW Plt Count MPV Sodium Potassium Chloride Carbon Dioxide Anion Gap BUN Creatinine Creat Clearance w eGFR Random Glucose Calcium Total Bilirubin AST ALT Alkaline Phosphatase Total Protein Albumin Urine Color Yellow Urine Appearance Clear Urine pH 6.0 Ur Specific [place] 1.016 Urine Protein Negative Urine Glucose (UA) Negative Urine Ketones Negative Urine Blood Negative Urine Nitrite Negative Urine Bilirubin Negative Urine Urobilinogen Negative Ur Leukocyte Esterase Negative RPR Titer Labs reviewed Assessment: 08/01/17 15:32 Withdrawal symptoms Noted with bradycardia Plan: Continue detox Encouraged PO hydration Bradycardia: asymptomatic, encouraged frequent ambulation during daytime and to drink more water for hydration; follow up with your PCP post discharge for further evaluation
--- NOTE | 2017-08-01 17:36 | CONSULT ---
[facility] Psychiatric Consult - Data Date of interview: 08/01/17 Admission source: Self refered Identifying data: Patient is 42 y/o male single, employed, domiciled father of 2 with a history of substance use disorder Substance Abuse History: He uses cocaine, heroin alcohol and benzo.> he has been using for the past 15 years. Please refer to addiction drug counselor note for more detailed drug history Medical History: History of HepC GERD, inner ear disorder,. Gallbladder surgery in 2011 Psychiatric History: He denies prior psychiatric hospitalization, but recives out patient care treatment at [facility] due to s history of Bipolarity, anxiety and depression. He is medicated with [place] 300 mg po bid. Wlbutrin SR 150 mg po daily. Seroquel 50 mhg po daily. Compliant and adherent with his medciation treatment Physical/Sexual Abuse/Trauma History: No reported history of trauma or abuse Mental Status Exam - Mental Status Exam Alert and Oriented to: Place, Person Cognitive Function: Grossly Intact Patient Appearance: Well Groomed Mood: Depressed Affect: Appropriate Patient Behavior: Cooperative Speech Pattern: Clear, Appropriate Voice Loudness: Normal Thought Process: Intact Thought Disorder: Not Present Hallucinations: None Suicidal Ideation: None Homicidal Ideation: None Insight/Judgement: Poor Sleep: Poorly Appetite: Fair Gait/Station: Normal Psychiatric Findings - Problem List ([place] 1, 2,3) (1) Opioid dependence, uncomplicated Current Visit: Yes Status: Acute (2) Sedative, hypnotic or anxiolytic dependence with withdrawal, uncomplicated Current Visit: Yes Status: Acute (3) Alcohol dependence with uncomplicated withdrawal Current Visit: Yes Status: Chronic (4) GERD (gastroesophageal reflux disease) Current Visit: Yes Status: Chronic Qualifiers: Esophagitis presence: without esophagitis Qualified Code(s): K21.9 - Gastro -esophageal reflux disease without esophagitis (5) Hepatitis C Current Visit: Yes Status: Chronic Qualifiers: Viral hepatitis chronicity: chronic Hepatic coma status: without hepatic coma Qualified Code(s): B18.2 - Chronic viral hepatitis C (6) Nicotine dependence Current Visit: Yes Status: Chronic Qualifiers: Nicotine product type: cigarettes Substance use status: uncomplicated Qualified Code(s): F17.210 - Nicotine dependence, cigarettes, uncomplicated (7) Anxiety disorder Current Visit: No Status: Acute (8) Bipolar disorder, rapid cycling Current Visit: No Status: Acute (9) Drug-induced mood disorder Current Visit: No Status: Acute (10) Insomnia Current Visit: No Status: Acute (11) hearing loss both ears Current Visit: No Status: Chronic Comment: DUE TO CHILDHOOD EAR INFECTIONS - Initial Treatment Plan Initial Treatment Plan: Continue in patient Detox treatment. Medications. Seroquel 300 mg po daily. Litium Carbonate 300 mg po bid. Wellbutirn [place] [employer] 150 mg po daily. Blood serum lithium level, Thyroid function test
[2017-08-01] MEDS ORDERED: ZOLPIDEM TARTRATE 5 MG TABLET PO PRN (17:51)
--- NOTE | 2017-08-01 21:50 | EKG ---
Test Reason : Blood Pressure : / mmHG Vent. Rate : 045 BPM Atrial Rate : 045 BPM P-R Int : 174 ms QRS Dur : 098 ms QT Int : 470 ms P-R-T Axes : 047 035 038 degrees QTc Int : 406 ms SINUS BRADYCARDIA OTHERWISE NORMAL ECG WHEN COMPARED WITH ECG OF 31-JUL-2017 21:02, NO SIGNIFICANT CHANGE WAS FOUND Confirmed by BAMBI ALANIS MD ([id number]) on 08/01/2017 9:49:42 PM Referred By: Confirmed By:BAMBI ALANIS MD
[2017-08-01] MEDS: THIAMINE HCL 100 MG TABLET (FP) PO SCH (22:26)
[2017-08-01] MEDS: LITHIUM CARBONATE 300 MG CAPSULE (FP) PO SCH (22:26)
[2017-08-02] MEDS: diazePAM 5 MG TABLET PO PRN ×5 (02:10→22:22)
[2017-08-02] MEDS: IBUPROFEN 400 MG TABLET (FP) PO PRN ×2 (02:10→17:37)
[2017-08-02] MEDS: diazePAM 5 MG TABLET PO SCH ×2 (11:15→22:19)
[2017-08-02] MEDS: NICOTINE 21 MG/24 HOURS TOPICAL PATCH TD SCH (11:15)
[2017-08-02] MEDS: METHADONE HCL 5 MG TABLET (FOR DETOX USE ONLY) PO SCH (11:15)
[2017-08-02] MEDS: cloNIDine HCL 0.1 MG TABLET PO SCH ×2 (11:15→22:18)
[2017-08-02] MEDS: CYCLOBENZAPRINE HCL 10 MG TABLET (FP) PO PRN ×2 (11:15→22:19)
[2017-08-02] MEDS: LITHIUM CARBONATE 300 MG CAPSULE (FP) PO SCH ×2 (11:15→22:18)
[2017-08-02] MEDS: PRENATAL VITAMINS W/ FOLIC ACID TABLET (FP) PO SCH (11:15)
[2017-08-02] MEDS: ACETAMINOPHEN 325 MG TABLET (FP) PO PRN (13:21)
--- NOTE | 2017-08-02 13:34 | PN ---
[facility] CIWA - CIWA Score Nausea/Vomitin Muscle Tremors: 3 Anxiety: 2 Agitation: 2 Paroxysmal Sweats: 1-Minimal Palms Moist Orientation: 0-Oriented Tacttile Disturbances: 1-Very Mild Itch/Numbness Auditory Disturbances: 1-Very Mild Visual Disturbances: 0-None Headache: 2-Mild CIWA-Ar Total Score: 15 BHS COWS - Scale Resting Pulse: 0= [place] 80 or Below Sweatin= Chills/Flushing Restless Observation: 3= Extraneous Movement Pupil Size: 1= Pupils >than Normal Bone or Joint Aches: 2= Severe Diffuse Aches Runny Nose/ Eye Tearin= Runny Nose/Eyes GI Upset > 30mins: 3= Vomiting/Diarrhea Tremor Observation of Outstretched Hands: 2= Slight Tremor Visible Yawning Observation: 1= 1-2x During Session Anxiety or Irritability: 2=Irritable/Anxious Goose Flesh Skin: 0=Smooth Skin COWS Score: 17 S Progress Note (SOAP) Subjective: ALERT,IRRITABLE,ANXIOUS,INTERRUPTED SLEEP,TREMOR,PAIN IN THE BODY AND BACK Objective: 08/02/17 13:32 Vital Signs Temperature 97.5 F L 08/02/17 10:00 Pulse Rate 54 L 08/02/17 10:00 Respiratory Rate 20 08/02/17 10:00 Blood Pressure 149/90 08/02/17 10:00 O2 Sat by Pulse Oximetry (%) EKG SINUS BRADYCARDIA 45/MIN PRO Vital Signs Temperature 97.5 F L 08/02/17 10:00 Pulse Rate 54 L 08/02/17 10:00 Respiratory Rate 20 08/02/17 10:00 Blood Pressure 149/90 08/02/17 10:00 O2 Sat by Pulse Oximetry (%) LONG QT 470/406 08/02/17 13:33 Laboratory Last Values WBC 4.7 K/mm3 (4.0-10.0) 08/01/17 08:00 RBC 4.11 M/mm3 (4.00-5.60) 08/01/17 08:00 Hgb 12.3 GM/dL (11.7-16.9) 08/01/17 08:00 Hct 34.6 % (35.4-49) L 08/01/17 08:00 MCV 84.3 fl (80-96) 08/01/17 08:00 MCH 29.9 pg (25.7-33.7) 08/01/17 08:00 MCHC 35.5 g/dl (32.0-35.9) 08/01/17 08:00 RDW 13.8 % (11.9-15.9) 08/01/17 08:00 Plt Count 127 K/MM3 (134-434) L D 08/01/17 08:00 MPV 8.3 fl (7.5-11.1) D 08/01/17 08:00 Sodium 139 mmol/L (136-145) 08/01/17 08:00 Potassium 3.9 mmol/L (3.5-5.1) 08/01/17 08:00 Chloride 104 mmol/L (98-107) 08/01/17 08:00 Carbon Dioxide 31 mmol/L (21-32) 08/01/17 08:00 Anion Gap 4 (8-16) L 08/01/17 08:00 BUN 10 mg/dL (7-18) D 08/01/17 08:00 Creatinine 0.9 mg/dL (0.7-1.3) 08/01/17 08:00 Creat Clearance w eGFR > 60 (>60) 08/01/17 08:00 Random Glucose 84 mg/dL (74-106) 08/01/17 08:00 Calcium 8.2 mg/dL (8.5-10.1) L 08/01/17 08:00 Total Bilirubin 0.4 mg/dL (0.2-1.0) D 08/01/17 08:00 AST 31 U/L (15-37) D 08/01/17 08:00 ALT 47 U/L (12-78) 08/01/17 08:00 Alkaline Phosphatase 61 U/L (45-117) D 08/01/17 08:00 Total Protein 6.4 g/dl (6.4-8.2) 08/01/17 08:00 Albumin 3.4 g/dl (3.4-5.0) 08/01/17 08:00 Urine Color Yellow 08/01/17 10:30 Urine Appearance Clear 08/01/17 10:30 Urine pH 6.0 (5.0-8.0) 08/01/17 10:30 Ur Specific [place] 1.016 (1.001-1.035) 08/01/17 10:30 Urine Protein Negative (NEGATIVE) 08/01/17 10:30 Urine Glucose (UA) Negative (NEGATIVE) 08/01/17 10:30 Urine Ketones Negative (NEGATIVE) 08/01/17 10:30 Urine Blood Negative (NEGATIVE) 08/01/17 10:30 Urine Nitrite Negative (NEGATIVE) 08/01/17 10:30 Urine Bilirubin Negative (<2.0 mg/dL) 08/01/17 10:30 Urine Urobilinogen Negative mg/dL (0.2-1.0) 08/01/17 10:30 Ur Leukocyte Esterase Negative (NEGATIVE) 08/01/17 10:30 RPR Titer Nonreactive (NONREACTIVE) 08/01/17 08:00 Assessment: 08/02/17 13:33 WITHDRAWAL SYMPTOM Plan: CONTINUE DETOX
--- NOTE | 2017-08-02 16:09 | PN ---
Psychiatric Progress Note Vital Signs: Vital Signs Period Temp Pulse Resp BP Sys/Torres Pulse Ox Last 24 Hr 97.2 F-98.1 F 44-85 18-20 113-153/58-90 Date of Session: 08/02/17 Chief Complaint:: Insomnia HPI: Patient reports taking priormto admission Amnbien 10mg po qhs, asking to put him on preadmission dose. Current Medications: Active Medications Generic Name Dose Route Start Last Admin Trade Name Freq PRN Reason Stop Dose Admin Acetaminophen 650 mg 07/31/17 18:25 08/02/17 13:21 Tylenol - PO 650 mg Q4H PRN Administration FEVER Al Hydroxide/Mg Hydroxide 30 ml 07/31/17 18:25 Mylanta Oral Suspension - PO Q6H PRN DYSPEPSIA Bupropion HCl 150 mg 08/02/17 10:00 08/02/17 11:15 Wellbutrin Xl - PO 150 mg DAILY JONNY Administration Clonidine 0.1 mg 07/31/17 22:00 08/02/17 11:15 Catapres - PO 0.1 mg BID JONNY Administration Cyclobenzaprine HCl 10 mg 07/31/17 18:29 08/02/17 11:15 Flexeril - PO 10 mg TID PRN Administration MUSCLE SPASMS Diazepam 5 mg 08/02/17 10:00 08/02/17 11:15 Valium - PO 08/03/17 22:01 5 mg BID JONNY Administration Diazepam 5 mg 08/04/17 10:00 Valium - PO 08/04/17 10:01 DAILY JONNY Diazepam 10 mg 07/31/17 18:25 08/02/17 13:26 Valium - PO 08/03/17 18:26 10 mg Q4H PRN Administration WITHDRAWAL(CONT SUBST) Eucalyptus/Menthol/Phenol/Sorbitol 1 each 07/31/17 18:25 Cepastat Lozenge - MM Q4H PRN SORE THROAT Guaifenesin 10 ml 07/31/17 18:25 Robitussin Dm - PO Q6H PRN COUGH Hydroxyzine Pamoate 25 mg 07/31/17 18:25 Vistaril - PO Q4H PRN AGITATION Ibuprofen 400 mg 07/31/17 18:25 08/02/17 02:10 Motrin - PO 400 mg Q6H PRN Administration PAIN LEVEL 4-6 [place] Carbonate 300 mg 08/01/17 22:00 08/02/17 11:15 Eskalith - PO 300 mg BID [facility] Administration Loperamide HCl 4 mg 07/31/17 18:25 Imodium - PO Q6H PRN DIARRHEA Magnesium Citrate 300 ml 07/31/17 18:25 Citroma - PO Q48H PRN CONSTIPATION Magnesium Hydroxide 30 ml 07/31/17 18:25 Milk Of Magnesia - PO DAILY PRN CONSTIPATION Melatonin 5 mg 07/31/17 22:00 Melatonin PO HS PRN INSOMNIA Methadone HCl 10 mg 08/04/17 10:00 Dolophine - PO 08/04/17 10:01 DAILY JONNY Methadone HCl 15 mg 08/02/17 10:00 08/02/17 11:15 Dolophine - PO 08/03/17 10:01 15 mg DAILY JONNY Administration Methadone HCl 5 mg 08/05/17 06:00 Dolophine - PO 08/05/17 06:01 DAILY@0600 JONNY Nicotine 21 mg 07/31/17 18:45 08/02/17 11:15 Nicoderm Patch - TD 21 mg DAILY [facility] Administration Nicotine Polacrilex 2 mg 07/31/17 18:25 Nicorette Gum - BC Q2H PRN NICOTINE REPLACEMENT RX Multivit/Folic Acid/Iron 1 tab 08/01/17 10:00 08/02/17 11:15 Vitamins ([facility]) - PO 1 tab DAILY [facility] Administration Pseudoephedrine/Triprolidine 1 combo 07/31/17 18:25 Actifed - PO TID PRN NASAL CONGESTION Thiamine HCl 100 mg 07/31/17 22:00 08/01/17 22:26 Vitamin B1 - PO 100 mg HS [facility] Administration Zolpidem Tartrate 10 mg 08/02/17 14:48 Ambien - PO 08/05/17 14:47 HS PRN INSOMNIA Medication(s) Change(s): Amnbien 10mg po qhs Mental Status Exam - Mental Status Exam Alert and Oriented to: Person Patient Appearance: Well Groomed Mood: Anxious Affect: Mood Congruent Patient Behavior: Cooperative Voice Loudness: Normal Thought Process: Goal Oriented Thought Disorder: Being Controlled Hallucinations: Denies Suicidal Ideation: Denies Homicidal Ideation: Denies Insight/Judgement: Fair Sleep: Difficulty falling asleep Appetite: Fair Muscle strength/Tone: Normal Gait/Station: Normal Additional Comments: Amnbien 10mg po qhs Psychiatric Treatment Plan - Problem List (1) Opioid dependence, uncomplicated Current Visit: Yes (2) Sedative, hypnotic or anxiolytic dependence with withdrawal, uncomplicated Current Visit: Yes (3) Alcohol dependence with uncomplicated withdrawal Current Visit: Yes (4) Bipolar disorder Current Visit: Yes Comment: As per self-report and existing records.currently asymptomatic.Well-contolled on lithium and risperdal. (5) Nicotine dependence Current Visit: Yes Qualifiers: Nicotine product type: cigarettes Substance use status: uncomplicated Qualified Code(s): F17.210 - Nicotine dependence, cigarettes, uncomplicated (6) Alcohol dependence with uncomplicated withdrawal Current Visit: No (7) Anxiety disorder Current Visit: No (8) Drug-induced mood disorder Current Visit: No (9) Drug-induced mood disorder Current Visit: No (10) Opioid dependence with withdrawal Current Visit: No (11) Alcohol dependence in controlled environment Current Visit: No (12) Cocaine dependence, uncomplicated Current Visit: No Initial treatment plan: Amnbien 10mg po qhs
[2017-08-02] MEDS: ZOLPIDEM TARTRATE 10 MG TABLET (PARK CARE ONLY) PO PRN (22:18)
[2017-08-02] MEDS: THIAMINE HCL 100 MG TABLET (FP) PO SCH (22:19)
[2017-08-03] MEDS: diazePAM 5 MG TABLET PO PRN ×4 (02:38→16:27)
[2017-08-03] MEDS: ACETAMINOPHEN 325 MG TABLET (FP) PO PRN ×2 (02:38→16:26)
[2017-08-03] MEDS: CYCLOBENZAPRINE HCL 10 MG TABLET (FP) PO PRN ×3 (05:33→22:25)
[2017-08-03] MEDS: IBUPROFEN 400 MG TABLET (FP) PO PRN (06:37)
[2017-08-03] MEDS: diazePAM 5 MG TABLET PO SCH ×3 (10:00→22:23)
[2017-08-03] MEDS: METHADONE HCL 5 MG TABLET (FOR DETOX USE ONLY) PO SCH (10:34)
[2017-08-03] MEDS: PRENATAL VITAMINS W/ FOLIC ACID TABLET (FP) PO SCH (10:35)
[2017-08-03] MEDS: NICOTINE 21 MG/24 HOURS TOPICAL PATCH TD SCH (10:35)
[2017-08-03] MEDS: cloNIDine HCL 0.1 MG TABLET PO SCH ×2 (10:35→22:23)
[2017-08-03] MEDS: LITHIUM CARBONATE 300 MG CAPSULE (FP) PO SCH ×2 (10:35→22:23)
--- NOTE | 2017-08-03 11:01 | PN ---
[facility] Progress Note (SOAP) Subjective: ALERT,IRRITABLE,ANXIOUS,INTERRUPTED SLEEP Objective: 08/03/17 10:58 Vital Signs Temperature 95.9 F L 08/03/17 08:50 Pulse Rate 60 08/03/17 08:50 Respiratory Rate 18 08/03/17 08:50 Blood Pressure 146/75 08/03/17 08:50 O2 Sat by Pulse Oximetry (%) Assessment: 08/03/17 11:01 WITHDRAWAL SYMPTOM Plan: CONTINUE DETOX
[2017-08-03] MEDS: THIAMINE HCL 100 MG TABLET (FP) PO SCH (22:23)
[2017-08-03] MEDS: ZOLPIDEM TARTRATE 10 MG TABLET (PARK CARE ONLY) PO PRN (22:23)
[2017-08-04] MEDS: CYCLOBENZAPRINE HCL 10 MG TABLET (FP) PO PRN ×3 (05:55→22:18)
[2017-08-04] MEDS ORDERED: diazePAM 5 MG TABLET PO SCH (10:00)
[2017-08-04] MEDS ORDERED: METHADONE HCL 10 MG TABLET (FOR DETOX USE ONLY) PO SCH (10:00)
[2017-08-04] MEDS: PRENATAL VITAMINS W/ FOLIC ACID TABLET (FP) PO SCH (11:01)
[2017-08-04] MEDS: LITHIUM CARBONATE 300 MG CAPSULE (FP) PO SCH ×2 (11:01→22:18)
[2017-08-04] MEDS: cloNIDine HCL 0.1 MG TABLET PO SCH ×2 (11:01→22:18)
[2017-08-04] MEDS: NICOTINE 21 MG/24 HOURS TOPICAL PATCH TD SCH (11:02)
--- NOTE | 2017-08-04 12:34 | PN ---
S Progress Note (SOAP) Subjective: ALERT,IRRITABLE,ANXIOUS,INTERRUPTED SLEEP Objective: 08/04/17 12:33 Vital Signs Temperature 97.0 F L 08/04/17 10:17 Pulse Rate 57 L 08/04/17 10:17 Respiratory Rate 18 08/04/17 10:17 Blood Pressure 150/54 08/04/17 10:17 O2 Sat by Pulse Oximetry (%) Assessment: 08/04/17 12:33 WITHDRAWAL SYMPTOM Plan: CONTINUE DETOX
[2017-08-04] MEDS ORDERED: COLLOIDAL OATMEAL 1 BAR EACH TP PRN (12:56)
[2017-08-04] MEDS: IBUPROFEN 400 MG TABLET (FP) PO PRN (13:26)
[2017-08-04] MEDS: ZOLPIDEM TARTRATE 10 MG TABLET (PARK CARE ONLY) PO PRN (22:18)
[2017-08-04] MEDS: THIAMINE HCL 100 MG TABLET (FP) PO SCH (22:18)
[2017-08-05] MEDS ORDERED: METHADONE HCL 5 MG TABLET (FOR DETOX USE ONLY) PO SCH (06:00)
--- NOTE | 2017-08-05 08:04 | PN ---
S Progress Note (SOAP) Subjective: ALERT,NO COMPLAINT Objective: 08/05/17 08:03 Vital Signs Temperature 97.7 F 08/05/17 06:37 Pulse Rate 58 L 08/05/17 06:37 Respiratory Rate 18 08/05/17 06:37 Blood Pressure 142/94 08/05/17 06:37 O2 Sat by Pulse Oximetry (%) Assessment: 08/05/17 08:03 DETOX COMPLETED,NO WITHDRAWAL SYMPTOM Plan: DISCHARGE TODAY,FOLLOW UP WITH AFTER CARE PROGRAM ARRANGEMENT
--- NOTE | 2017-08-05 08:10 | DS ---
[facility] Detox Discharge Summary Admission Date: 07/31/17 Discharge Date: 08/05/17 - History Present History: Alcohol Dependence, Opioid Dependence, Sedative Dependence Additional Comments: FOLLOW UP WITH AFTER CARE PROGRAM ARRANGEMENT Pertinent Past History: GERD HEPATITIS C NICOTINE DEPENDENCE SEIZURE HARD OF HEARING INTRAVENOUS DRUG USER - Physical Exam Results Vital Signs: Vital Signs Temperature 97.7 F 08/05/17 06:37 Pulse Rate 58 L 08/05/17 06:37 Respiratory Rate 18 08/05/17 06:37 Blood Pressure 142/94 08/05/17 06:37 O2 Sat by Pulse Oximetry (%) Pertinent Admission Physical Exam Findings: WITHDRAWAL SIGN AND SYMPTOM Vital Signs Temperature 97.7 F 08/05/17 06:37 Pulse Rate 58 L 08/05/17 06:37 Respiratory Rate 18 08/05/17 06:37 Blood Pressure 142/94 08/05/17 06:37 O2 Sat by Pulse Oximetry (%) Laboratory Last Values WBC 4.7 K/mm3 (4.0-10.0) 08/01/17 08:00 RBC 4.11 M/mm3 (4.00-5.60) 08/01/17 08:00 Hgb 12.3 GM/dL (11.7-16.9) 08/01/17 08:00 Hct 34.6 % (35.4-49) L 08/01/17 08:00 MCV 84.3 fl (80-96) 08/01/17 08:00 MCH 29.9 pg (25.7-33.7) 08/01/17 08:00 MCHC 35.5 g/dl (32.0-35.9) 08/01/17 08:00 RDW 13.8 % (11.9-15.9) 08/01/17 08:00 Plt Count 127 K/MM3 (134-434) L D 08/01/17 08:00 MPV 8.3 fl (7.5-11.1) D 08/01/17 08:00 Sodium 139 mmol/L (136-145) 08/01/17 08:00 Potassium 3.9 mmol/L (3.5-5.1) 08/01/17 08:00 Chloride 104 mmol/L (98-107) 08/01/17 08:00 Carbon Dioxide 31 mmol/L (21-32) 08/01/17 08:00 Anion Gap 4 (8-16) L 08/01/17 08:00 BUN 10 mg/dL (7-18) D 08/01/17 08:00 Creatinine 0.9 mg/dL (0.7-1.3) 08/01/17 08:00 Creat Clearance w eGFR > 60 (>60) 08/01/17 08:00 Random Glucose 84 mg/dL (74-106) 08/01/17 08:00 Calcium 8.2 mg/dL (8.5-10.1) L 08/01/17 08:00 Total Bilirubin 0.4 mg/dL (0.2-1.0) D 08/01/17 08:00 AST 31 U/L (15-37) D 08/01/17 08:00 ALT 47 U/L (12-78) 08/01/17 08:00 Alkaline Phosphatase 61 U/L (45-117) D 08/01/17 08:00 Total Protein 6.4 g/dl (6.4-8.2) 08/01/17 08:00 Albumin 3.4 g/dl (3.4-5.0) 08/01/17 08:00 Urine Color Yellow 08/01/17 10:30 Urine Appearance Clear 08/01/17 10:30 Urine pH 6.0 (5.0-8.0) 08/01/17 10:30 Ur Specific [place] 1.016 (1.001-1.035) 08/01/17 10:30 Urine Protein Negative (NEGATIVE) 08/01/17 10:30 Urine Glucose (UA) Negative (NEGATIVE) 08/01/17 10:30 Urine Ketones Negative (NEGATIVE) 08/01/17 10:30 Urine Blood Negative (NEGATIVE) 08/01/17 10:30 Urine Nitrite Negative (NEGATIVE) 08/01/17 10:30 Urine Bilirubin Negative (<2.0 mg/dL) 08/01/17 10:30 Urine Urobilinogen Negative mg/dL (0.2-1.0) 08/01/17 10:30 Ur Leukocyte Esterase Negative (NEGATIVE) 08/01/17 10:30 RPR Titer Nonreactive (NONREACTIVE) 08/01/17 08:00 - Treatment Hospital Course: Detox Protocol Followed, Detoxed Safely, Responded well, Discharged Condition Good, Rehab Referral Accepted Patient has Accepted a Rehab Referral to: [facility] - Medication Discharge Medications: Ambulatory Orders B[place]um Carbonate [Eskalith -] 300 mg PO BID 07/31/17 - Diagnosis (1) Opioid dependence with withdrawal Current Visit: No Status: Acute (2) Alcohol dependence with uncomplicated withdrawal Current Visit: No Status: Acute (3) Insomnia Current Visit: No Status: Acute (4) Sedative, hypnotic or anxiolytic dependence with withdrawal, uncomplicated Current Visit: Yes Status: Acute (5) Bipolar disorder Current Visit: Yes Status: Chronic (6) GERD (gastroesophageal reflux disease) Current Visit: Yes Status: Chronic Qualifiers: Esophagitis presence: without esophagitis Qualified Code(s): K21.9 - Gastro -esophageal reflux disease without esophagitis (7) Hepatitis C Current Visit: Yes Status: Chronic Qualifiers: Viral hepatitis chronicity: chronic Hepatic coma status: without hepatic coma Qualified Code(s): B18.2 - Chronic viral hepatitis C (8) Nicotine dependence Current Visit: Yes Status: Chronic Qualifiers: Nicotine product type: cigarettes Substance use status: uncomplicated Qualified Code(s): F17.210 - Nicotine dependence, cigarettes, uncomplicated (9) Seizure Current Visit: Yes Status: Chronic (10) hearing loss both ears Current Visit: No Status: Chronic (11) Intravenous drug user Current Visit: Yes Status: Acute - AMA Did Patient Leave Against Medical Advice: No
[2017-08-05 10:16] VITALS: BP 146/86; PULSE 66; TEMP 98
[2017-08-05] MEDS: PRENATAL VITAMINS W/ FOLIC ACID TABLET (FP) PO SCH (10:33)
[2017-08-05] MEDS: cloNIDine HCL 0.1 MG TABLET PO SCH (10:33)
[2017-08-05] MEDS: LITHIUM CARBONATE 300 MG CAPSULE (FP) PO SCH (10:34)
[2017-08-05] MEDS: CYCLOBENZAPRINE HCL 10 MG TABLET (FP) PO PRN (10:35)
[2017-08-05] MEDS: NICOTINE 21 MG/24 HOURS TOPICAL PATCH TD SCH (10:37)
== END 2017-08-05 12:49 | disposition other institution (70) | DRG 773 ==
LOC: YASAS 13:07 → Y6N 17:19
PROVIDERS: ADMIT Internal Medicine; ATTEND Internal Medicine
PROC: HZ2ZZZZ Detoxification Services for Substance Abuse Treatment (ICD-10-PCS; principal; 2017-07-31)
DX: F11.23 Opioid dependence with withdrawal (principal); F13.230 Sedative, hypnotic or anxiolytic dependence with withdrawal, uncomplicated; F10.230 Alcohol dependence with withdrawal, uncomplicated; F17.210 Nicotine dependence, cigarettes, uncomplicated; F31.9 Bipolar disorder, unspecified; F41.9 Anxiety disorder, unspecified; F19.24 Other psychoactive substance dependence with psychoactive substance-induced mood disorder; G47.00 Insomnia, unspecified; K21.9 Gastro-esophageal reflux disease without esophagitis; B18.2 Chronic viral hepatitis C; H91.93 Unspecified hearing loss, bilateral; R00.1 Bradycardia, unspecified; I45.81 Long QT syndrome; Z91.013 Allergy to seafood; Z86.69 Personal history of other diseases of the nervous system and sense organs; Z59.0 Homelessness
CPT/HCPCS: 36415; 80053; 81003; 85027; 86593; 93005; 93010; J0735

== ENCOUNTER 2017-08-05 12:54 | Inpatient (IN) | payer OTHER ==
--- NOTE | 2017-08-05 15:23 | HP ---
Psychiatrist Admission - Data Date of interview: 08/05/17 Admission source: 3N Identifying data: This is one of the several inpatient rehabilitation admissions for this 42 year old single employed male father of 2. Medical History: GERD,hepatitis C,hearing impediment since childhood (past history of ear surgery),dyslipidemia,withdrawal seizures and cholecystectomy ( 2011).Smokes cigarettes 10 a day. Psychiatric History: PAtient reports was diagnosed as bipolar disorder, he under the care of [facility] and curently on [place] 300 mg po bid, Seroquel 50 mg po hs, Wellbutrin XR 150 mg po daily. Reports no history of psychiatric hospiltalizations. Physical/Sexual Abuse/Trauma History: Denies Allergies/Adverse Reactions: Allergies Allergy/AdvReac Type Severity Reaction Status Date / Time egg Allergy Intermediate Hives Verified 08/05/17 13:21 shellfish derived Allergy Intermediate Difficulty Verified 08/05/17 13:21 Breathing fish derived Allergy Difficulty Verified 08/05/17 13:21 Breathing No Known Drug Allergies Allergy Verified 08/05/17 13:21 seafood Allergy Intermediate Difficulty Uncoded 08/05/17 13:21 Breathing Date of last physical exam: 08/02/17 Concur with the findings of this exam: Yes - Substance Abuse/Tx History Hx Alcohol Use: Yes (beer 6 pks, vodka 1pint) Hx Substance Use: Yes Substance Use Type: Heroin (10-12 bags daily ) Hx Substance Use Treatment: Yes Mental Status Exam - Mental Status Exam Alert and Oriented to: Place, Person Cognitive Function: Grossly Intact Patient Appearance: Well Groomed Mood: Depressed, Anxious Affect: Blunted Patient Behavior: Appropriate, Cooperative Speech Pattern: Appropriate Voice Loudness: Normal Thought Process: Goal Oriented Thought Disorder: Not Present Hallucinations: Denies Suicidal Ideation: Denies Homicidal Ideation: Denies Insight/Judgement: Fair Sleep: Fair Appetite: Fair Muscle strength/Tone: Normal Gait/Station: Normal Psychiatric Findings - Problem List ([place] 1, 2,3) (1) Opioid dependence Current Visit: Yes Status: Acute (2) Alcohol dependence Current Visit: Yes Status: Acute (3) Bipolar disorder Current Visit: No Status: Chronic Comment: As per self-report and existing records.currently asymptomatic.Well-contolled on lithium and risperdal. (4) Nicotine dependence Current Visit: No Status: Chronic Qualifiers: Nicotine product type: cigarettes Substance use status: uncomplicated Qualified Code(s): F17.210 - Nicotine dependence, cigarettes, uncomplicated - Initial Treatment Plan Initial Treatment Plan: Will continue his current medications, will add Belsomra 10 mg po hs, side-effects/benefits discussed. Monitor progress as needed.
--- NOTE | 2017-08-05 15:23 | HP ---
[facility] Rehab Assess/Revision - Admission History Admitted to Rehab from: [facility] Date of Admission to Rehab: 08/05/17 - Findings Detox History & Physical reviewed: Yes Concur with findings: Yes Comments/Additional Findings: transferred from detox to rehab admission as per protocol Inpatient Rehab Admission - Initial Determination Are CD services needed?: Yes Free of communicable disease: Yes Not in need of hospitalization: Yes - Rehab Admission Criteria Previous failed treatment: Yes Poor recovery environment: Yes Comorbidities: Yes Lacks judgement: No Patient is meeting Inpatient Rehab admission criteria:: Yes
[2017-08-05] MEDS ORDERED: MAGNESIUM HYDROX 2400MG/30ML ORAL SUSPENSION 30 ML CUP PO PRN (15:24)
[2017-08-05] MEDS ORDERED: IBUPROFEN 400 MG TABLET (FP) PO PRN (15:24)
[2017-08-05] MEDS ORDERED: LOPERAMIDE HCL 2 MG CAPSULE PO PRN (15:24)
[2017-08-05] MEDS ORDERED: NICOTINE POLACRILEX 2 MG GUM BUC PRN (15:24)
[2017-08-05] MEDS ORDERED: MENTHOL/PHENOL 1 EACH UD MM PRN (15:24)
[2017-08-05] MEDS ORDERED: guaiFENesin/D-METHORPHAN HB 10 ML UNIT-DOSE CUPS PO PRN (15:24)
[2017-08-05] MEDS ORDERED: MAG HYDROX/AL HYDROX/SIMETH 30 ML UNIT-DOSE CUP PO PRN (15:24)
[2017-08-05] MEDS ORDERED: P-EPHED 60MG/TRIPROLIDI 2.5MG TABLET PO PRN (15:24)
[2017-08-05] MEDS ORDERED: MAGNESIUM CITRATE 300 ML BOTTLE PO PRN (15:24)
[2017-08-05] MEDS: THIAMINE HCL 100 MG TABLET (FP) PO SCH (21:19)
[2017-08-05] MEDS: SUVOREXANT 10 MG TABLET PO SCH (21:21)
[2017-08-05] MEDS: QUEtiapine FUMARATE 50 MG TABLET PO SCH (21:21)
[2017-08-05] MEDS: LITHIUM CARBONATE 300 MG CAPSULE (FP) PO SCH (21:21)
[2017-08-06] MEDS: LITHIUM CARBONATE 300 MG CAPSULE (FP) PO SCH ×2 (10:14→21:27)
[2017-08-06] MEDS: PRENATAL VITAMINS W/ FOLIC ACID TABLET (FP) PO SCH (10:14)
[2017-08-06] MEDS: NICOTINE 14 MG/24 HOURS TOPICAL PATCH TD PRN (10:15)
[2017-08-06] MEDS: ACETAMINOPHEN 325 MG TABLET (FP) PO PRN (14:16)
[2017-08-06] MEDS: SUVOREXANT 10 MG TABLET PO SCH (21:27)
[2017-08-06] MEDS: THIAMINE HCL 100 MG TABLET (FP) PO SCH (21:27)
[2017-08-06] MEDS: QUEtiapine FUMARATE 50 MG TABLET PO SCH (21:27)
[2017-08-07] MEDS: LITHIUM CARBONATE 300 MG CAPSULE (FP) PO SCH ×2 (09:51→21:29)
[2017-08-07] MEDS: PRENATAL VITAMINS W/ FOLIC ACID TABLET (FP) PO SCH (09:51)
[2017-08-07] MEDS: NICOTINE 14 MG/24 HOURS TOPICAL PATCH TD PRN (09:52)
[2017-08-07] MEDS: QUEtiapine FUMARATE 50 MG TABLET PO SCH (21:29)
[2017-08-07] MEDS: SUVOREXANT 10 MG TABLET PO SCH (21:29)
[2017-08-07] MEDS: THIAMINE HCL 100 MG TABLET (FP) PO SCH (21:30)
[2017-08-08] MEDS: LITHIUM CARBONATE 300 MG CAPSULE (FP) PO SCH ×2 (09:44→21:15)
[2017-08-08] MEDS: PRENATAL VITAMINS W/ FOLIC ACID TABLET (FP) PO SCH (09:44)
[2017-08-08] MEDS: NICOTINE 14 MG/24 HOURS TOPICAL PATCH TD PRN (09:45)
[2017-08-08] MEDS: MELATONIN 5 MG TABLETS PO PRN (21:15)
[2017-08-08] MEDS: SUVOREXANT 10 MG TABLET PO SCH (21:15)
[2017-08-08] MEDS: QUEtiapine FUMARATE 50 MG TABLET PO SCH (21:15)
[2017-08-08] MEDS: THIAMINE HCL 100 MG TABLET (FP) PO SCH (21:15)
[2017-08-09] MEDS: PRENATAL VITAMINS W/ FOLIC ACID TABLET (FP) PO SCH (09:48)
[2017-08-09] MEDS: NICOTINE 14 MG/24 HOURS TOPICAL PATCH TD PRN (09:49)
[2017-08-09] MEDS: LITHIUM CARBONATE 300 MG CAPSULE (FP) PO SCH ×2 (09:49→21:21)
[2017-08-09] MEDS: THIAMINE HCL 100 MG TABLET (FP) PO SCH (21:21)
[2017-08-09] MEDS: SUVOREXANT 10 MG TABLET PO SCH (21:21)
[2017-08-09] MEDS: QUEtiapine FUMARATE 50 MG TABLET PO SCH (21:21)
[2017-08-09] MEDS: MELATONIN 5 MG TABLETS PO PRN (21:21)
[2017-08-10] MEDS: LITHIUM CARBONATE 300 MG CAPSULE (FP) PO SCH ×2 (10:07→21:28)
[2017-08-10] MEDS: PRENATAL VITAMINS W/ FOLIC ACID TABLET (FP) PO SCH (10:07)
[2017-08-10] MEDS: NICOTINE 21 MG/24 HOURS TOPICAL PATCH TD SCH (10:07)
[2017-08-10] MEDS: MELATONIN 5 MG TABLETS PO PRN (21:28)
[2017-08-10] MEDS: QUEtiapine FUMARATE 50 MG TABLET PO SCH (21:28)
[2017-08-10] MEDS: THIAMINE HCL 100 MG TABLET (FP) PO SCH (21:28)
[2017-08-10] MEDS: SUVOREXANT 10 MG TABLET PO SCH (21:28)
[2017-08-11] MEDS: PRENATAL VITAMINS W/ FOLIC ACID TABLET (FP) PO SCH (10:03)
[2017-08-11] MEDS: NICOTINE 21 MG/24 HOURS TOPICAL PATCH TD SCH (10:03)
[2017-08-11] MEDS: LITHIUM CARBONATE 300 MG CAPSULE (FP) PO SCH ×2 (10:03→21:18)
[2017-08-11] MEDS: ACETAMINOPHEN 325 MG TABLET (FP) PO PRN (10:04)
[2017-08-11] MEDS: QUEtiapine FUMARATE 50 MG TABLET PO SCH (21:18)
[2017-08-11] MEDS: THIAMINE HCL 100 MG TABLET (FP) PO SCH (21:18)
[2017-08-11] MEDS: SUVOREXANT 10 MG TABLET PO SCH (21:18)
[2017-08-11] MEDS: MELATONIN 5 MG TABLETS PO PRN (21:19)
[2017-08-12] MEDS: PRENATAL VITAMINS W/ FOLIC ACID TABLET (FP) PO SCH (10:06)
[2017-08-12] MEDS: LITHIUM CARBONATE 300 MG CAPSULE (FP) PO SCH ×2 (10:06→21:23)
[2017-08-12] MEDS: NICOTINE 21 MG/24 HOURS TOPICAL PATCH TD SCH (10:07)
[2017-08-12] MEDS ORDERED: QUEtiapine FUMARATE 100 MG TABLET (FP) PO SCH (13:50)
--- NOTE | 2017-08-12 13:56 | PN ---
Psychiatric Progress Note Vital Signs: Vital Signs Period Temp Pulse Resp BP Sys/Torres Pulse Ox Last 24 Hr 98.7 F 56 16-18 116/77 Date of Session: 08/12/17 Chief Complaint:: "depressed" HPI: Patient is addressing alcohol, opioid, nicotine dependence comorbid bipolar disorder. ROS: wnl Current Medications: Active Medications Generic Name Dose Route Start Last Admin Trade Name Freq PRN Reason Stop Dose Admin Acetaminophen 650 mg 08/05/17 15:24 08/11/17 10:04 Tylenol - PO 650 mg Q4H PRN Administration FEVER Al Hydroxide/Mg Hydroxide 30 ml 08/05/17 15:24 Mylanta Oral Suspension - PO Q6H PRN DYSPEPSIA Bupropion HCl 200 mg 08/12/17 13:51 Wellbutrin Xl - PO DAILY JONNY Eucalyptus/Menthol/Phenol/Sorbitol 1 each 08/05/17 15:24 Cepastat Lozenge - MM Q4H PRN SORE THROAT Guaifenesin 10 ml 08/05/17 15:24 Robitussin Dm - PO Q6H PRN COUGH Ibuprofen 400 mg 08/05/17 15:24 Motrin - PO Q6H PRN Pain Level 4-6 [place] Carbonate 300 mg 08/05/17 22:00 08/12/17 10:06 Eskalith - PO 300 mg BID JONNY Administration Loperamide HCl 4 mg 08/05/17 15:24 Imodium - PO Q6H PRN DIARRHEA Magnesium Citrate 300 ml 08/05/17 15:24 08/09/17 16:42 Citroma - PO 300 ml Q48H PRN Administration CONSTIPATION Magnesium Hydroxide 30 ml 08/05/17 15:24 Milk Of Magnesia - PO DAILY PRN CONSTIPATION Melatonin 5 mg 08/05/17 22:00 08/11/17 21:19 Melatonin PO 5 mg HS PRN Administration INSOMNIA Nicotine 21 mg 08/10/17 10:00 08/12/17 10:07 Nicoderm Patch - TD 21 mg DAILY JONNY Administration Nicotine Polacrilex 2 mg 08/05/17 15:24 08/08/17 09:45 Nicorette Gum - BUC 2 mg Q2H PRN Administration NICOTINE REPLACEMENT RX Multivit/Folic Acid/Iron 1 tab 08/06/17 10:00 08/12/17 10:06 Vitamins (Sjr) - PO 1 tab DAILY JONNY Administration Pseudoephedrine/Triprolidine 1 combo 08/05/17 15:24 Actifed - PO TID PRN NASAL CONGESTION Quetiapine Fumarate 100 mg 08/12/17 13:50 Seroquel - PO HS JONNY Suvorexant 15 mg 08/12/17 13:50 Belsomra PO 08/12/17 21:59 HS JONNY Thiamine HCl 100 mg 08/05/17 22:00 08/11/17 21:18 Vitamin B1 - PO 100 mg HS JONNY Administration Current Side Effect: No Lab tests ordered: Yes (lithium blood level in am) Lab tests reviewed: Yes Provider note:: Patient was sen today, he c/o feeling deperssed, unable to sleep and having mood swings, reviewed medications with the patient, will increase wellbutrin 200 mg po daily, serouel 100 mg po hs and belsomra 15 mg po hs, continue to monitor progress. Total face to face time:: 15 Mental Status Exam - Mental Status Exam Alert and Oriented to: Time, Place, Person Cognitive Function: Good Patient Appearance: Well Groomed Mood: Depressed, Sad Affect: Appropriate, Mood Congruent Patient Behavior: Appropriate, Cooperative Speech Pattern: Clear, Appropriate Voice Loudness: Normal Thought Process: Intact, Goal Oriented Thought Disorder: Not Present Hallucinations: Denies Suicidal Ideation: Denies Homicidal Ideation: Denies Insight/Judgement: Fair Sleep: Poorly, Difficulty falling asleep Appetite: Fair Muscle strength/Tone: Normal Gait/Station: Normal Psychiatric Treatment Plan - Problem List (1) Opioid dependence Current Visit: Yes (2) Alcohol dependence Current Visit: Yes (3) Bipolar disorder Current Visit: No Comment: As per self-report and existing records.currently asymptomatic.Well-contolled on lithium and risperdal. (4) Nicotine dependence Current Visit: No Qualifiers: Nicotine product type: cigarettes Substance use status: uncomplicated Qualified Code(s): F17.210 - Nicotine dependence, cigarettes, uncomplicated
[2017-08-12] MEDS: buPROPion HCL 100 MG TABLET PO SCH (15:20)
[2017-08-12] MEDS: THIAMINE HCL 100 MG TABLET (FP) PO SCH (21:24)
[2017-08-12] MEDS ORDERED: SUVOREXANT 15 MG TABLET PO SCH (22:00)
[2017-08-13 06:36] VITALS: BP 103/72; PULSE 62; TEMP 97.7
--- NOTE | 2017-08-13 10:19 | PN ---
Psychiatric Progress Note Vital Signs: Vital Signs Period Temp Pulse Resp BP Sys/Torres Pulse Ox Last 24 Hr 97.7 F 62 18-19 103/72 Date of Session: 08/13/17 Chief Complaint:: discharge HPI: patient has addressed alcohol, cocaine , nicotine dependence comorbid bipolar i disorder. Current Medications: Active Medications Generic Name Dose Route Start Last Admin Trade Name Freq PRN Reason Stop Dose Admin Acetaminophen 650 mg 08/05/17 15:24 08/11/17 10:04 Tylenol - PO 650 mg Q4H PRN Administration FEVER Al Hydroxide/Mg Hydroxide 30 ml 08/05/17 15:24 Mylanta Oral Suspension - PO Q6H PRN DYSPEPSIA Bupropion HCl 200 mg 08/12/17 14:15 08/12/17 15:20 Wellbutrin - PO 200 mg DAILY JONNY Administration Eucalyptus/Menthol/Phenol/Sorbitol 1 each 08/05/17 15:24 Cepastat Lozenge - MM Q4H PRN SORE THROAT Guaifenesin 10 ml 08/05/17 15:24 Robitussin Dm - PO Q6H PRN COUGH Ibuprofen 400 mg 08/05/17 15:24 Motrin - PO Q6H PRN Pain Level 4-6 [place] Carbonate 300 mg 08/05/17 22:00 08/12/17 21:23 Eskalith - PO 300 mg BID JONNY Administration Loperamide HCl 4 mg 08/05/17 15:24 Imodium - PO Q6H PRN DIARRHEA Magnesium Citrate 300 ml 08/05/17 15:24 08/09/17 16:42 Citroma - PO 300 ml Q48H PRN Administration CONSTIPATION Magnesium Hydroxide 30 ml 08/05/17 15:24 Milk Of Magnesia - PO DAILY PRN CONSTIPATION Melatonin 5 mg 08/05/17 22:00 08/11/17 21:19 Melatonin PO 5 mg HS PRN Administration INSOMNIA Nicotine 21 mg 08/10/17 10:00 08/12/17 10:07 Nicoderm Patch - TD 21 mg DAILY JONNY Administration Nicotine Polacrilex 2 mg 08/05/17 15:24 08/08/17 09:45 Nicorette Gum - BUC 2 mg Q2H PRN Administration NICOTINE REPLACEMENT RX Multivit/Folic Acid/Iron 1 tab 08/06/17 10:00 08/12/17 10:06 Vitamins (Sjr) - PO 1 tab DAILY JONNY Administration Pseudoephedrine/Triprolidine 1 combo 08/05/17 15:24 Actifed - PO TID PRN NASAL CONGESTION Quetiapine Fumarate 100 mg 08/12/17 13:50 08/12/17 21:24 Seroquel - PO 100 mg HS JONNY Administration Suvorexant 15 mg 08/12/17 22:00 08/12/17 21:24 Belsomra PO 15 mg HS JONNY Administration Thiamine HCl 100 mg 08/05/17 22:00 08/12/17 21:24 Vitamin B1 - PO 100 mg HS JONNY Administration Current Side Effect: No Lab tests ordered: No Lab tests reviewed: Yes Provider note:: Patient has completed this progarm and met his goals, he will continue to address his issues at [facility] inpatient treatment program. He gained insights into his addiction and motivated to continue maintain abstinence. Wellbutrin, Arrey and Seroquel well tolerated, patient reports feeling better, scripts provided for 30 days supply, patient refused blood work for lithiun this am, stating he will chaidez it outside, patient is stable for discharge today. Total face to face time:: 15 Mental Status Exam - Mental Status Exam Alert and Oriented to: Time, Place, Person Cognitive Function: Good Patient Appearance: Well Groomed Mood: Hopeful Patient Behavior: Appropriate, Cooperative Speech Pattern: Clear, Appropriate Voice Loudness: Normal Thought Process: Intact Thought Disorder: Not Present Hallucinations: Denies Suicidal Ideation: Denies Homicidal Ideation: Denies Insight/Judgement: Fair Sleep: Fair Appetite: Fair Muscle strength/Tone: Normal Gait/Station: Normal Psychiatric Treatment Plan - Problem List (1) Opioid dependence Current Visit: Yes (2) Alcohol dependence Current Visit: Yes (3) Bipolar disorder Current Visit: No Comment: As per self-report and existing records.currently asymptomatic.Well-contolled on lithium and risperdal. (4) Nicotine dependence Current Visit: No Qualifiers: Nicotine product type: cigarettes Substance use status: uncomplicated Qualified Code(s): F17.210 - Nicotine dependence, cigarettes, uncomplicated
[2017-08-13] MEDS: PRENATAL VITAMINS W/ FOLIC ACID TABLET (FP) PO SCH (10:22)
[2017-08-13] MEDS: LITHIUM CARBONATE 300 MG CAPSULE (FP) PO SCH (10:22)
[2017-08-13] MEDS: buPROPion HCL 100 MG TABLET PO SCH (10:23)
[2017-08-13] MEDS: NICOTINE 21 MG/24 HOURS TOPICAL PATCH TD SCH (10:23)
== END 2017-08-13 10:25 | disposition home or self-care (01) | DRG 772 ==
LOC: YASAS 12:54 → Y5N 12:55
PROVIDERS: ADMIT Psychiatry & Neurology Psychiatry; ATTEND Psychiatry & Neurology Psychiatry
PROC: HZ42ZZZ Group Counseling for Substance Abuse Treatment, Cognitive-Behavioral (ICD-10-PCS; principal; 2017-08-05)
DX: F11.20 Opioid dependence, uncomplicated (principal); F10.20 Alcohol dependence, uncomplicated; F17.210 Nicotine dependence, cigarettes, uncomplicated; F31.9 Bipolar disorder, unspecified

== ENCOUNTER 2017-09-25 21:44 | Inpatient (IN) | payer OTHER ==
[2017-09-25 21:48] VITALS: BMI 30.7
[2017-09-25] MEDS ORDERED: MELATONIN 5 MG TABLETS PO PRN (22:00)
[2017-09-25] MEDS ORDERED: diazePAM 5 MG TABLET PO SCH (22:00)
--- NOTE | 2017-09-25 22:19 | HP ---
COWS - Scale Resting Pulse: 0= [place] 80 or Below Sweatin= Chills/Flushing Restless Observation: 0= Sits Still Pupil Size: 0= Normal to Room Light Bone or Joint Aches: 4=Acute Joint/Muscle Pain Runny Nose/ Eye Tearin= Runny Nose/Eyes GI Upset > 30mins: 1= Stomach Cramp Tremor Observation: 4= Gross Tremor/Twitching Yawning Observation: 1= 1-2x During Session Anxiety or Irritability: 4=Extreme Anxiety Goose Flesh Skin: 0=Smooth Skin COWS Score: 17 CIWA Score - CIWA Score Nausea/Vomitin-Mild Nausea/No Vomiting Muscle Tremors: 4-Moderate,w/Arms Extend Anxiety: 4-Mod. Anxious/Guarded Agitation: 4-Moderately Restless Paroxysmal Sweats: 1-Minimal Palms Moist Orientation: 1-Uncertain about Date Tacttile Disturbances: 0-None Auditory Disturbances: 0-None Visual Disturbances: 0-None Headache: 2-Mild CIWA-Ar Total Score: 17 Admission [facility] - HPI Chief Complaint: Heroin and alcohol withdrawal symptoms Allergies/Adverse Reactions: Allergies Allergy/AdvReac Type Severity Reaction Status Date / Time egg Allergy Intermediate Hives Verified 09/25/17 22:17 shellfish derived Allergy Intermediate Difficulty Verified 09/25/17 22:17 Breathing fish derived Allergy Difficulty Verified 09/25/17 22:17 Breathing No Known Drug Allergies Allergy Verified 09/25/17 22:17 seafood Allergy Intermediate Difficulty Uncoded 09/25/17 22:17 Breathing History of Present Illness: 42 years old male with a long history of heroin and alcohol dependence is seeking admission to detox. Patient has been in previous multiple detox and reports insignificant period of sobriety. He has medical history of Hypertension , Hep. C, GERD, seizures, anxiety, left ear hearing loss and depression. Patient denies suicide attempt and suicidal ideation at this time. Exam Limitations: No Limitations - Ebola screening Have you traveled outside of the country in the last 21 days: No Have you had contact with anyone from an Ebola affected area: No Have you been sick,other than usual withdrawal symptoms: No - Review of Systems Constitutional: Chills, Loss of Appetite, Malaise, Night Sweats, Changes in sleep EENT: reports: Hearing Loss (left ear) Respiratory: reports: No Symptoms reported Cardiac: reports: No Symptoms Reported GI: reports: Nausea, Poor Appetite, Poor Fluid Intake, Abdominal cramping Musculoskeletal: reports: Muscle Pain Integumentary: reports: Dryness Endocrine: reports: No Symptoms Reported Hematology: reports: No Symptoms Reported Psychiatric: reports: Mood/Affect Appropiate, Agitated, Anxious, Depressed Other Systems: Reviewed and Negative Patient History - Patient Medical History Hx Anemia: No Hx Asthma: No Hx Chronic Obstructive Pulmonary Disease (COPD): No Hx Cancer: No Hx Cardiac Disorders: No Hx Congestive Heart Failure: No Hx Hypertension: Yes (NOT ON MEDICATION) Hx Hypercholesterolemia: No Hx Pacemaker: No HX Cerebrovascular Accident: No Hx Seizures: Yes (ALCOHOL RELATED SEIZURE- Not on medication) Hx Dementia: No Hx Diabetes: No Hx Gastrointestinal Disorders: Yes (GERD - Not on medication) Hx Liver Disease: Yes (Hep C) Hx Genitourinary Disorders: No Hx Sexually Transmitted Disorders: No Hx Renal Disease (ESRD): No Hx Thyroid Disease: No Hx Human Immunodeficiency Virus (HIV): No (NEGATIVE 05/2017 ) Hx Hepatitis C: Yes (Not treated) Hx Depression: Yes (Not on medication) Hx Suicide Attempt: No (Denies suicide attempt and suicidal ideation at this time) Hx Bipolar Disorder: Yes ([place], Seroquel) Hx Schizophrenia: No - Patient Surgical History Past Surgical History: Yes Hx Neurologic Surgery: No Hx Cataract Extraction: No Hx Cardiac Surgery: No Hx Lung Surgery: No Hx Abdominal Surgery: No Hx Appendectomy: No Hx Cholecystectomy: Yes ( [place] 03/2011) Hx Genitourinary Surgery: No Hx Orthopedic Surgery: No Other Surgical History: EAR SX BOTH EARS A CHILD-TUBE INSERTION Anesthesia Reaction: No - PPD History Previous Implant?: Yes Documented Results: Negative w/proof Implanted On Prior [facility] Admission?: Yes Date: 10/09/16 Results: 0 mm PPD to be Administered?: Yes - Reproductive History Patient is a Female of Child Bearing Age (11 -55 yrs old): No (MALE) - Smoking Cessation Smoking history: Former smoker Have you smoked in the past 12 months: Yes Aproximately how many cigarettes per day: 0 Cigars Per Day: 0 Hx Chewing Tobacco Use: No Initiated information on smoking cessation: No - Substance & Tx. History Hx Alcohol Use: Yes Hx Substance Use: Yes Substance Use Type: Alcohol, Cocaine, Heroin Hx Substance Use Treatment: Yes ([facility]) - Substances Abused Alcohol Route: Oral Frequency: Daily Amount used: LIQUOR- 1 PINT, BEER- 1 SIX PACK Age of first use: 16 Date of Last Use: 09/24/17 Cocaine Route: Injection Frequency: Daily Amount used: 1/2 gram Age of first use: 30 Heroin Route: Injection Frequency: Daily Amount used: 16 BAGS Age of first use: 30 Date of Last Use: 09/25/17 Alprazolam (Xanax) Route: Oral Frequency: Daily Amount used: 4mg Age of first use: 35 Date of Last Use: 09/24/17 Family Disease History - Family Disease History Family Disease History: Diabetes: Father (), Heart Disease: Father, Mother (ashma and emphysema- ), Respiratory: Mother, Other: Brother ( alcoholic) Admission Physical Exam [facility] - Vital Signs Vital Signs: Vital Signs - 24 hr 09/25/17 21:46 Temperature 98.8 F Pulse Rate 53 L Respiratory 18 Rate Blood Pressure 133/69 - Physical General Appearance: Yes: Moderate Distress HEENTM: Yes: EOMI, Normal ENT Inspection, Normocephalic, Normal Voice, ADELA Neck: Yes: Supple Breast: Yes: Breast Exam Deferred Cardiology: Yes: Regular Rhythm, Regular Rate, Bradycardia Abdominal: Yes: Normal Bowel Sounds, Soft Genitourinary: Yes: Within Normal Limits Back: Yes: Normal Inspection Extremities: Yes: Tremors Neurological: Yes: Alert, Normal Mood/Affect Integumentary: Yes: Warm Lymphatic: Yes: Within Normal Limits - Diagnostic (1) Alcohol dependence with uncomplicated withdrawal Current Visit: Yes Status: Chronic (2) Bradycardia Current Visit: Yes Status: Chronic (3) Opioid dependence with withdrawal Current Visit: Yes Status: Chronic (4) Sedative, hypnotic or anxiolytic dependence with withdrawal, uncomplicated Current Visit: Yes Status: Chronic (5) Anxiety Current Visit: Yes Status: Chronic (6) Cocaine dependence, uncomplicated Current Visit: Yes Status: Chronic (7) GERD (gastroesophageal reflux disease) Current Visit: Yes Status: Chronic Qualifiers: Esophagitis presence: without esophagitis Qualified Code(s): K21.9 - Gastro -esophageal reflux disease without esophagitis (8) Hearing loss in left ear Current Visit: No Status: Chronic Qualifiers: Hearing loss type: unspecified Qualified Code(s): H91.92 - Unspecified hearing loss, left ear (9) Hepatitis C Current Visit: Yes Status: Chronic Qualifiers: Viral hepatitis chronicity: chronic Hepatic coma status: without hepatic coma Qualified Code(s): B18.2 - Chronic viral hepatitis C (10) Nicotine dependence Current Visit: No Status: Chronic Qualifiers: Nicotine product type: cigarettes Substance use status: uncomplicated Qualified Code(s): F17.210 - Nicotine dependence, cigarettes, uncomplicated (11) Seizure Current Visit: No Status: Chronic (12) Anxiety disorder Current Visit: No Status: Acute Qualifiers: Anxiety disorder type: unspecified anxiety disorder Qualified Code(s): F41.9 - Anxiety disorder, unspecified Cleared for Admission [facility] - Detox or Rehab S Level of Care: Medically Managed Detox Regimen/Protocol: Methadone/Valium S Breath Alcohol Content Breath Alcohol Content: 0 Urine Drug Screen - Results Drug Screen Negative: No Urine Drug Screen Results: ALEXEY-Cocaine, OPI-Opiates, BZO-Benzodiazepines, MTD- Methadone
[2017-09-25] MEDS ORDERED: MAGNESIUM CITRATE 300 ML BOTTLE PO PRN (22:35)
[2017-09-25] MEDS ORDERED: P-EPHED 60MG/TRIPROLIDI 2.5MG TABLET PO PRN (22:35)
[2017-09-25] MEDS ORDERED: guaiFENesin/D-METHORPHAN HB 10 ML UNIT-DOSE CUPS PO PRN (22:35)
[2017-09-25] MEDS ORDERED: MAGNESIUM HYDROX 2400MG/30ML ORAL SUSPENSION 30 ML CUP PO PRN (22:35)
[2017-09-25] MEDS ORDERED: MENTHOL/PHENOL 1 EACH UD MM PRN (22:35)
[2017-09-25] MEDS ORDERED: LOPERAMIDE HCL 2 MG CAPSULE PO PRN (22:35)
[2017-09-25] MEDS ORDERED: diazePAM 5 MG TABLET PO PRN (22:35)
[2017-09-25] MEDS ORDERED: MAG HYDROX/AL HYDROX/SIMETH 30 ML UNIT-DOSE CUP PO PRN (22:35)
[2017-09-25] MEDS ORDERED: IBUPROFEN 400 MG TABLET (FP) PO PRN (22:35)
[2017-09-25] MEDS ORDERED: METHADONE HCL 10 MG TABLET (FOR DETOX USE ONLY) PO ONE ×2 (23:00→23:15)
[2017-09-25] MEDS ORDERED: diazePAM 5 MG TABLET PO ONE (23:15)
[2017-09-26 00:04] LABS: URINE APPEARANCE SLCLOUDY; URINE BILIRUBIN NEGATIVE (<2.0 mg/dL); URINE COLOR DKYELLOW; URINE GLUCOSE (UA) NEGATIVE (NEGATIVE); URINE KETONE NEGATIVE (NEGATIVE); URINE LEUK ESTERASE NEGATIVE (NEGATIVE); URINE NITRITE NEGATIVE (NEGATIVE)
[2017-09-26 00:05] LABS: URINE PROTEIN 1+ (NEGATIVE)
[2017-09-26 00:09] LABS: URINE MUCUS MODERATE
[2017-09-26] MEDS ORDERED: METHADONE HCL 10 MG TABLET (FOR DETOX USE ONLY) PO ONE ×3 (00:27→23:00)
[2017-09-26] MEDS ORDERED: diazePAM 5 MG TABLET PO ONE (00:27)
[2017-09-26] MEDS: diazePAM 5 MG TABLET PO SCH ×3 (05:44→22:24)
[2017-09-26 09:49] LABS: HEMATOCRIT 37.5 % (35.4-49); HEMOGLOBIN 12.9 GM/dL (11.7-16.9); MCH 28.7 pg (25.7-33.7); MCHC 34.4 g/dl (32.0-35.9); MEAN CELL VOLUME 83.3 fl (80-96); MEAN PLT VOLUME 7.8 fl (7.5-11.1); PLATELET COUNT 191 K/MM3 (134-434); RDW 13.4 % (11.9-15.9)
[2017-09-26 09:56] LABS: ALBUMIN 3.6 g/dl (3.4-5.0); ANION GAP 5 (8-16); BLOOD UREA NITROGEN 13 mg/dL (7-18); CALCIUM 8.7 mg/dL (8.5-10.1); CHLORIDE 106 mmol/L (98-107); CO2 32 mmol/L (21-32); GLUCOSE,RANDOM 85 mg/dL (74-106); POTASSIUM 4.2 mmol/L (3.5-5.1); SODIUM 143 mmol/L (136-145)
[2017-09-26] MEDS ORDERED: METHADONE HCL 10 MG TABLET (FOR DETOX USE ONLY) PO SCH (10:00)
[2017-09-26 10:01] LABS: ALK PHOS 85 U/L (45-117); BILIRUBIN,TOTAL 0.6 mg/dL (0.2-1.0); CREATININE 1.1 mg/dL (0.7-1.3); SGOT/AST 39 U/L (15-37); SGPT/ALT 55 U/L (12-78); TOT PROT 7.1 g/dl (6.4-8.2)
[2017-09-26] MEDS: diazePAM 5 MG TABLET PO PRN ×2 (10:11→18:54)
[2017-09-26] MEDS: PRENATAL VITAMINS W/ FOLIC ACID TABLET (FP) PO SCH (10:11)
--- NOTE | 2017-09-26 13:16 | PN ---
[facility] CIWA - CIWA Score Nausea/Vomitin-Mild Nausea/No Vomiting Muscle Tremors: 4-Moderate,w/Arms Extend Anxiety: 4-Mod. Anxious/Guarded Agitation: 4-Moderately Restless Paroxysmal Sweats: 1-Minimal Palms Moist Orientation: 0-Oriented Tacttile Disturbances: 1-Very Mild Itch/Numbness Auditory Disturbances: 0-None Visual Disturbances: 0-None Headache: 0-None Present CIWA-Ar Total Score: 15 S COWS - Scale Resting Pulse: 0= [place] 80 or Below Sweatin= Chills/Flushing Restless Observation: 1= Difficult to Sit Still Pupil Size: 1= Pupils >than Normal Bone or Joint Aches: 2= Severe Diffuse Aches Runny Nose/ Eye Tearin= Runny Nose/Eyes GI Upset > 30mins: 2= Nausea/Diarrhea Tremor Observation of Outstretched Hands: 2= Slight Tremor Visible Yawning Observation: 2= >3x During Session Anxiety or Irritability: 2=Irritable/Anxious Goose Flesh Skin: 0=Smooth Skin COWS Score: 15 [facility] Progress Note (SOAP) Subjective: sweat tremor diarrhea gi distress restlessness anxiety Objective: 09/26/17 13:14 Vital Signs Temperature 97.7 F 09/26/17 09:47 Pulse Rate 40 L 09/26/17 09:47 Respiratory Rate 20 09/26/17 09:47 Blood Pressure 131/80 09/26/17 09:47 O2 Sat by Pulse Oximetry (%) Laboratory Last Values WBC 5.0 K/mm3 (4.0-10.0) 09/26/17 07:45 RBC 4.50 M/mm3 (4.00-5.60) 09/26/17 07:45 Hgb 12.9 GM/dL (11.7-16.9) 09/26/17 07:45 Hct 37.5 % (35.4-49) 09/26/17 07:45 MCV 83.3 fl (80-96) 09/26/17 07:45 MCH 28.7 pg (25.7-33.7) 09/26/17 07:45 MCHC 34.4 g/dl (32.0-35.9) 09/26/17 07:45 RDW 13.4 % (11.9-15.9) 09/26/17 07:45 Plt Count 191 K/MM3 (134-434) D 09/26/17 07:45 MPV 7.8 fl (7.5-11.1) 09/26/17 07:45 Sodium 143 mmol/L (136-145) 09/26/17 07:45 Potassium 4.2 mmol/L (3.5-5.1) 09/26/17 07:45 Chloride 106 mmol/L (98-107) 09/26/17 07:45 Carbon Dioxide 32 mmol/L (21-32) 09/26/17 07:45 Anion Gap 5 (8-16) L 09/26/17 07:45 BUN 13 mg/dL (7-18) 09/26/17 07:45 Creatinine 1.1 mg/dL (0.7-1.3) 09/26/17 07:45 Creat Clearance w eGFR > 60 (>60) 09/26/17 07:45 Random Glucose 85 mg/dL (74-106) 09/26/17 07:45 Calcium 8.7 mg/dL (8.5-10.1) 09/26/17 07:45 Total Bilirubin 0.6 mg/dL (0.2-1.0) 09/26/17 07:45 AST 39 U/L (15-37) H D 09/26/17 07:45 ALT 55 U/L (12-78) 09/26/17 07:45 Alkaline Phosphatase 85 U/L (45-117) 09/26/17 07:45 Total Protein 7.1 g/dl (6.4-8.2) 09/26/17 07:45 Albumin 3.6 g/dl (3.4-5.0) 09/26/17 07:45 Urine Color Dkyellow 09/25/17 23:50 Urine Appearance Slcloudy 09/25/17 23:50 Urine pH 5.0 (5.0-8.0) 09/25/17 23:50 Ur Specific [place] 1.021 (1.001-1.035) 09/25/17 23:50 Urine Protein 1+ (NEGATIVE) H 09/25/17 23:50 Urine Glucose (UA) Negative (NEGATIVE) 09/25/17 23:50 Urine Ketones Negative (NEGATIVE) 09/25/17 23:50 Urine Blood 3+ (NEGATIVE) H 09/25/17 23:50 Urine Nitrite Negative (NEGATIVE) 09/25/17 23:50 Urine Bilirubin Negative (<2.0 mg/dL) 09/25/17 23:50 Urine Urobilinogen 2.0 mg/dL (0.2-1.0) 09/25/17 23:50 Ur Leukocyte Esterase Negative (NEGATIVE) 09/25/17 23:50 Urine WBC (Auto) 2 /hpf (3-5) 09/25/17 23:50 Urine RBC (Auto) 209 /hpf (0-3) 09/25/17 23:50 Urine Mucus Moderate 09/25/17 23:50 RPR Titer Nonreactive (NONREACTIVE) 09/26/17 07:45 HIV 1&2 Antibody Screen Negative 09/26/17 07:45 HIV P24 Antigen Negative 09/26/17 07:45 lab noted repeat ua Assessment: 09/26/17 13:15 withdrawal sx Plan: continue detox
--- NOTE | 2017-09-26 14:01 | CONSULT ---
[facility] Psychiatric Consult - Data Date of interview: 09/26/17 Admission source: [email or web address] Identifying data: Patient is a 42 y/o male single, employed, domiciled, father of 2 Substance Abuse History: He is here for Detox of Heroin and alcohol, occasional cocaine and Xanax. He has several past Detox admissions, his last admission was a couple of month ago here and failed to complete the program. Refer to addiction counselor note for more detailed drug use history Medical History: Hep C, Dyslipidemia, GERD. History of withdrawal seizures. Past history of Cholescystectomy Psychiatric History: Patient is diagnosed with Bipolar depression, he has had one prior ppsych admission @ [facility] where he receives his out patient care treatment. He is non compliant with his after care treatment. He is maintained on Lico3 300 mg po bid. Seroquel 50 mg po bid Physical/Sexual Abuse/Trauma History: Denied Additional Comment: No prior trouble with the law or history Mental Status Exam - Mental Status Exam Alert and Oriented to: Time, Place, Person Cognitive Function: Good Patient Appearance: Well Groomed Mood: Depressed, Anxious Affect: Labile Patient Behavior: Fatigued, Appropriate, Cooperative Speech Pattern: Clear Voice Loudness: Normal Thought Process: Intact Thought Disorder: Not Present Hallucinations: Denies Suicidal Ideation: Denies Homicidal Ideation: Denies Insight/Judgement: Poor Sleep: Poorly, Difficulty falling asleep Appetite: Fair Muscle strength/Tone: Normal Gait/Station: Normal Psychiatric Findings - Problem List ([place] 1, 2,3) (1) Cocaine dependence, uncomplicated Current Visit: Yes Status: Chronic (2) GERD (gastroesophageal reflux disease) Current Visit: Yes Status: Chronic Qualifiers: Esophagitis presence: without esophagitis Qualified Code(s): K21.9 - Gastro -esophageal reflux disease without esophagitis (3) Hepatitis C Current Visit: Yes Status: Chronic Qualifiers: Viral hepatitis chronicity: chronic Hepatic coma status: without hepatic coma Qualified Code(s): B18.2 - Chronic viral hepatitis C (4) Opioid dependence with withdrawal Current Visit: Yes Status: Chronic (5) Alcohol dependence Current Visit: No Status: Acute (6) Drug-induced mood disorder Current Visit: No Status: Acute (7) Insomnia Current Visit: No Status: Acute (8) Opioid dependence Current Visit: No Status: Acute - Initial Treatment Plan Initial Treatment Plan: Continue Detox treatment. Resume Seroquel 50 mg po bid. Ambien 10 mg po q hs
[2017-09-26] MEDS: ACETAMINOPHEN 325 MG TABLET (FP) PO PRN ×2 (14:25→18:51)
[2017-09-26 21:44] LABS: URINE APPEARANCE CLEAR; URINE BILIRUBIN NEGATIVE (<2.0 mg/dL); URINE COLOR STRAW; URINE GLUCOSE (UA) NEGATIVE (NEGATIVE); URINE KETONE NEGATIVE (NEGATIVE); URINE LEUK ESTERASE NEGATIVE (NEGATIVE); URINE NITRITE NEGATIVE (NEGATIVE); URINE PROTEIN NEGATIVE (NEGATIVE)
[2017-09-26] MEDS: THIAMINE HCL 100 MG TABLET (FP) PO SCH (22:24)
[2017-09-26] MEDS: QUEtiapine FUMARATE 50 MG TABLET PO SCH (22:24)
[2017-09-26] MEDS: cloNIDine HCL 0.1 MG TABLET PO PRN (22:25)
[2017-09-26] MEDS: ZOLPIDEM TARTRATE 10 MG TABLET (PARK CARE ONLY) PO PRN (22:25)
[2017-09-27] MEDS: diazePAM 5 MG TABLET PO PRN ×3 (01:24→19:06)
[2017-09-27] MEDS: ACETAMINOPHEN 325 MG TABLET (FP) PO PRN ×3 (01:25→19:03)
[2017-09-27] MEDS: diazePAM 5 MG TABLET PO SCH ×3 (05:12→22:09)
--- NOTE | 2017-09-27 09:19 | EKG ---
Test Reason : Blood Pressure : / mmHG Vent. Rate : 035 BPM Atrial Rate : 035 BPM P-R Int : 186 ms QRS Dur : 098 ms QT Int : 538 ms P-R-T Axes : 062 032 036 degrees QTc Int : 410 ms MARKED SINUS BRADYCARDIA ABNORMAL ECG WHEN COMPARED WITH ECG OF 01-AUG-2017 09:18, SINUS BRADYCARDIA IS AGAIN PRESENT, ALTHOUGH HEART RATE IS SIGNIFICANTLY SLOWER Confirmed by RADHA HERRERA MD ([id number]) on 09/27/2017 9:18:49 AM Referred By: Emily Houston Confirmed By:RADHA HERRERA MD
--- NOTE | 2017-09-27 09:55 | PN ---
[facility] CIWA - CIWA Score Nausea/Vomitin-Mild Nausea/No Vomiting Muscle Tremors: 4-Moderate,w/Arms Extend Anxiety: 4-Mod. Anxious/Guarded Agitation: 4-Moderately Restless Paroxysmal Sweats: 1-Minimal Palms Moist Orientation: 0-Oriented Tacttile Disturbances: 0-None Auditory Disturbances: 0-None Visual Disturbances: 0-None Headache: 0-None Present CIWA-Ar Total Score: 14 [facility] COWS - Scale Resting Pulse: 0= [place] 80 or Below Sweatin= Chills/Flushing Restless Observation: 1= Difficult to Sit Still Pupil Size: 0= Normal to Room Light Bone or Joint Aches: 2= Severe Diffuse Aches Runny Nose/ Eye Tearin= Runny Nose/Eyes GI Upset > 30mins: 2= Nausea/Diarrhea Tremor Observation of Outstretched Hands: 2= Slight Tremor Visible Yawning Observation: 2= >3x During Session Anxiety or Irritability: 2=Irritable/Anxious Goose Flesh Skin: 0=Smooth Skin COWS Score: 14 [facility] Progress Note (SOAP) Subjective: body ache diarrhea sweat tremor gi distress Objective: 09/27/17 10:00 Vital Signs Temperature 96.3 F L 09/27/17 09:15 Pulse Rate 37 L 09/27/17 09:15 Respiratory Rate 18 09/27/17 09:15 Blood Pressure 125/66 09/27/17 09:15 O2 Sat by Pulse Oximetry (%) Laboratory Last Values WBC 5.0 K/mm3 (4.0-10.0) 09/26/17 07:45 RBC 4.50 M/mm3 (4.00-5.60) 09/26/17 07:45 Hgb 12.9 GM/dL (11.7-16.9) 09/26/17 07:45 Hct 37.5 % (35.4-49) 09/26/17 07:45 MCV 83.3 fl (80-96) 09/26/17 07:45 MCH 28.7 pg (25.7-33.7) 09/26/17 07:45 MCHC 34.4 g/dl (32.0-35.9) 09/26/17 07:45 RDW 13.4 % (11.9-15.9) 09/26/17 07:45 Plt Count 191 K/MM3 (134-434) D 09/26/17 07:45 MPV 7.8 fl (7.5-11.1) 09/26/17 07:45 Sodium 143 mmol/L (136-145) 09/26/17 07:45 Potassium 4.2 mmol/L (3.5-5.1) 09/26/17 07:45 Chloride 106 mmol/L (98-107) 09/26/17 07:45 Carbon Dioxide 32 mmol/L (21-32) 09/26/17 07:45 Anion Gap 5 (8-16) L 09/26/17 07:45 BUN 13 mg/dL (7-18) 09/26/17 07:45 Creatinine 1.1 mg/dL (0.7-1.3) 09/26/17 07:45 Creat Clearance w eGFR > 60 (>60) 09/26/17 07:45 Random Glucose 85 mg/dL (74-106) 09/26/17 07:45 Calcium 8.7 mg/dL (8.5-10.1) 09/26/17 07:45 Total Bilirubin 0.6 mg/dL (0.2-1.0) 09/26/17 07:45 AST 39 U/L (15-37) H D 09/26/17 07:45 ALT 55 U/L (12-78) 09/26/17 07:45 Alkaline Phosphatase 85 U/L (45-117) 09/26/17 07:45 Total Protein 7.1 g/dl (6.4-8.2) 09/26/17 07:45 Albumin 3.6 g/dl (3.4-5.0) 09/26/17 07:45 Urine Color Straw 09/26/17 17:02 Urine Appearance Clear 09/26/17 17:02 Urine pH 8.0 (5.0-8.0) D 09/26/17 17:02 Ur Specific [place] 1.005 (1.001-1.035) 09/26/17 17:02 Urine Protein Negative (NEGATIVE) 09/26/17 17:02 Urine Glucose (UA) Negative (NEGATIVE) 09/26/17 17:02 Urine Ketones Negative (NEGATIVE) 09/26/17 17:02 Urine Blood Negative (NEGATIVE) 09/26/17 17:02 Urine Nitrite Negative (NEGATIVE) 09/26/17 17:02 Urine Bilirubin Negative (<2.0 mg/dL) 09/26/17 17:02 Urine Urobilinogen 2.0 mg/dL (0.2-1.0) 09/26/17 17:02 Ur Leukocyte Esterase Negative (NEGATIVE) 09/26/17 17:02 Urine WBC (Auto) 2 /hpf (3-5) 09/25/17 23:50 Urine RBC (Auto) 209 /hpf (0-3) 09/25/17 23:50 Urine Mucus Moderate 09/25/17 23:50 RPR Titer Nonreactive (NONREACTIVE) 09/26/17 07:45 HIV 1&2 Antibody Screen Negative 09/26/17 07:45 HIV P24 Antigen Negative 09/26/17 07:45 lab noted Assessment: 09/27/17 10:01 withdrawal sx Plan: continue detox
[2017-09-27] MEDS ORDERED: diazePAM 5 MG TABLET PO SCH (10:00)
[2017-09-27] MEDS ORDERED: METHADONE HCL 10 MG TABLET (FOR DETOX USE ONLY) PO SCH (10:00)
[2017-09-27] MEDS ORDERED: METHADONE HCL 5 MG TABLET (FOR DETOX USE ONLY) PO SCH (10:00)
[2017-09-27] MEDS: ASPIRIN 81 MG CHEWABLE TABLETS PO SCH (10:42)
[2017-09-27] MEDS: cloNIDine HCL 0.1 MG TABLET PO PRN (10:42)
[2017-09-27] MEDS: PRENATAL VITAMINS W/ FOLIC ACID TABLET (FP) PO SCH (10:42)
[2017-09-27] MEDS: QUEtiapine FUMARATE 50 MG TABLET PO SCH (22:09)
[2017-09-27] MEDS: THIAMINE HCL 100 MG TABLET (FP) PO SCH (22:10)
[2017-09-28] MEDS: diazePAM 5 MG TABLET PO PRN ×5 (01:29→20:38)
[2017-09-28] MEDS: ACETAMINOPHEN 325 MG TABLET (FP) PO PRN ×2 (01:30→16:32)
[2017-09-28] MEDS: diazePAM 5 MG TABLET PO SCH ×2 (10:11→22:23)
[2017-09-28] MEDS: METHADONE HCL 5 MG TABLET (FOR DETOX USE ONLY) PO SCH (10:11)
[2017-09-28] MEDS: ASPIRIN 81 MG CHEWABLE TABLETS PO SCH (10:11)
[2017-09-28] MEDS: PRENATAL VITAMINS W/ FOLIC ACID TABLET (FP) PO SCH (10:11)
--- NOTE | 2017-09-28 10:38 | PN ---
[facility] Progress Note (SOAP) Subjective: body ache sweat tremor irritable restlessness trouble sleep at night Objective: 09/28/17 10:36 Vital Signs Temperature 97 F L 09/28/17 09:23 Pulse Rate 43 L 09/28/17 09:23 Respiratory Rate 18 09/28/17 09:23 Blood Pressure 131/76 09/28/17 09:23 O2 Sat by Pulse Oximetry (%) Laboratory Last Values WBC 5.0 K/mm3 (4.0-10.0) 09/26/17 07:45 RBC 4.50 M/mm3 (4.00-5.60) 09/26/17 07:45 Hgb 12.9 GM/dL (11.7-16.9) 09/26/17 07:45 Hct 37.5 % (35.4-49) 09/26/17 07:45 MCV 83.3 fl (80-96) 09/26/17 07:45 MCH 28.7 pg (25.7-33.7) 09/26/17 07:45 MCHC 34.4 g/dl (32.0-35.9) 09/26/17 07:45 RDW 13.4 % (11.9-15.9) 09/26/17 07:45 Plt Count 191 K/MM3 (134-434) D 09/26/17 07:45 MPV 7.8 fl (7.5-11.1) 09/26/17 07:45 Sodium 143 mmol/L (136-145) 09/26/17 07:45 Potassium 4.2 mmol/L (3.5-5.1) 09/26/17 07:45 Chloride 106 mmol/L (98-107) 09/26/17 07:45 Carbon Dioxide 32 mmol/L (21-32) 09/26/17 07:45 Anion Gap 5 (8-16) L 09/26/17 07:45 BUN 13 mg/dL (7-18) 09/26/17 07:45 Creatinine 1.1 mg/dL (0.7-1.3) 09/26/17 07:45 Creat Clearance w eGFR > 60 (>60) 09/26/17 07:45 Random Glucose 85 mg/dL (74-106) 09/26/17 07:45 Calcium 8.7 mg/dL (8.5-10.1) 09/26/17 07:45 Total Bilirubin 0.6 mg/dL (0.2-1.0) 09/26/17 07:45 AST 39 U/L (15-37) H D 09/26/17 07:45 ALT 55 U/L (12-78) 09/26/17 07:45 Alkaline Phosphatase 85 U/L (45-117) 09/26/17 07:45 Total Protein 7.1 g/dl (6.4-8.2) 09/26/17 07:45 Albumin 3.6 g/dl (3.4-5.0) 09/26/17 07:45 Urine Color Straw 09/26/17 17:02 Urine Appearance Clear 09/26/17 17:02 Urine pH 8.0 (5.0-8.0) D 09/26/17 17:02 Ur Specific [place] 1.005 (1.001-1.035) 09/26/17 17:02 Urine Protein Negative (NEGATIVE) 09/26/17 17:02 Urine Glucose (UA) Negative (NEGATIVE) 09/26/17 17:02 Urine Ketones Negative (NEGATIVE) 09/26/17 17:02 Urine Blood Negative (NEGATIVE) 09/26/17 17:02 Urine Nitrite Negative (NEGATIVE) 09/26/17 17:02 Urine Bilirubin Negative (<2.0 mg/dL) 09/26/17 17:02 Urine Urobilinogen 2.0 mg/dL (0.2-1.0) 09/26/17 17:02 Ur Leukocyte Esterase Negative (NEGATIVE) 09/26/17 17:02 Urine WBC (Auto) 2 /hpf (3-5) 09/25/17 23:50 Urine RBC (Auto) 209 /hpf (0-3) 09/25/17 23:50 Urine Mucus Moderate 09/25/17 23:50 RPR Titer Nonreactive (NONREACTIVE) 09/26/17 07:45 HIV 1&2 Antibody Screen Negative 09/26/17 07:45 HIV P24 Antigen Negative 09/26/17 07:45 lab noted Assessment: 09/28/17 10:37 withdrawal sx +PPD Plan: continue detox chest x ray due to +PPD
[2017-09-28] MEDS: THIAMINE HCL 100 MG TABLET (FP) PO SCH (22:23)
[2017-09-28] MEDS: QUEtiapine FUMARATE 50 MG TABLET PO SCH (22:23)
[2017-09-28] MEDS: ZOLPIDEM TARTRATE 10 MG TABLET (PARK CARE ONLY) PO PRN (22:24)
[2017-09-29] MEDS: diazePAM 5 MG TABLET PO PRN (00:27)
[2017-09-29] MEDS ORDERED: diazePAM 5 MG TABLET PO SCH (10:00)
[2017-09-29] MEDS ORDERED: METHADONE HCL 10 MG TABLET (FOR DETOX USE ONLY) PO SCH (10:00)
--- NOTE | 2017-09-29 10:07 | PN ---
[facility] Progress Note (SOAP) Subjective: feeling better less sweat no tremor no gi distress acknowledged +PPD negative chest x ray result validated x 1 year Objective: 09/29/17 10:05 Vital Signs Temperature 98.1 F 09/29/17 09:12 Pulse Rate 50 L 09/29/17 09:12 Respiratory Rate 16 09/29/17 09:12 Blood Pressure 120/70 09/29/17 09:12 O2 Sat by Pulse Oximetry (%) Laboratory Last Values WBC 5.0 K/mm3 (4.0-10.0) 09/26/17 07:45 RBC 4.50 M/mm3 (4.00-5.60) 09/26/17 07:45 Hgb 12.9 GM/dL (11.7-16.9) 09/26/17 07:45 Hct 37.5 % (35.4-49) 09/26/17 07:45 MCV 83.3 fl (80-96) 09/26/17 07:45 MCH 28.7 pg (25.7-33.7) 09/26/17 07:45 MCHC 34.4 g/dl (32.0-35.9) 09/26/17 07:45 RDW 13.4 % (11.9-15.9) 09/26/17 07:45 Plt Count 191 K/MM3 (134-434) D 09/26/17 07:45 MPV 7.8 fl (7.5-11.1) 09/26/17 07:45 Sodium 143 mmol/L (136-145) 09/26/17 07:45 Potassium 4.2 mmol/L (3.5-5.1) 09/26/17 07:45 Chloride 106 mmol/L (98-107) 09/26/17 07:45 Carbon Dioxide 32 mmol/L (21-32) 09/26/17 07:45 Anion Gap 5 (8-16) L 09/26/17 07:45 BUN 13 mg/dL (7-18) 09/26/17 07:45 Creatinine 1.1 mg/dL (0.7-1.3) 09/26/17 07:45 Creat Clearance w eGFR > 60 (>60) 09/26/17 07:45 Random Glucose 85 mg/dL (74-106) 09/26/17 07:45 Calcium 8.7 mg/dL (8.5-10.1) 09/26/17 07:45 Total Bilirubin 0.6 mg/dL (0.2-1.0) 09/26/17 07:45 AST 39 U/L (15-37) H D 09/26/17 07:45 ALT 55 U/L (12-78) 09/26/17 07:45 Alkaline Phosphatase 85 U/L (45-117) 09/26/17 07:45 Total Protein 7.1 g/dl (6.4-8.2) 09/26/17 07:45 Albumin 3.6 g/dl (3.4-5.0) 09/26/17 07:45 Urine Color Straw 09/26/17 17:02 Urine Appearance Clear 09/26/17 17:02 Urine pH 8.0 (5.0-8.0) D 09/26/17 17:02 Ur Specific [place] 1.005 (1.001-1.035) 09/26/17 17:02 Urine Protein Negative (NEGATIVE) 09/26/17 17:02 Urine Glucose (UA) Negative (NEGATIVE) 09/26/17 17:02 Urine Ketones Negative (NEGATIVE) 09/26/17 17:02 Urine Blood Negative (NEGATIVE) 09/26/17 17:02 Urine Nitrite Negative (NEGATIVE) 09/26/17 17:02 Urine Bilirubin Negative (<2.0 mg/dL) 09/26/17 17:02 Urine Urobilinogen 2.0 mg/dL (0.2-1.0) 09/26/17 17:02 Ur Leukocyte Esterase Negative (NEGATIVE) 09/26/17 17:02 Urine WBC (Auto) 2 /hpf (3-5) 09/25/17 23:50 Urine RBC (Auto) 209 /hpf (0-3) 09/25/17 23:50 Urine Mucus Moderate 09/25/17 23:50 RPR Titer Nonreactive (NONREACTIVE) 09/26/17 07:45 HIV 1&2 Antibody Screen Negative 09/26/17 07:45 HIV P24 Antigen Negative 09/26/17 07:45 lab noted Assessment: 09/29/17 10:06 mild withdrawal sx Plan: medically supervised detox
[2017-09-29] MEDS: diazePAM 5 MG TABLET PO SCH ×2 (10:20→22:26)
[2017-09-29] MEDS: PRENATAL VITAMINS W/ FOLIC ACID TABLET (FP) PO SCH (10:20)
[2017-09-29] MEDS: METHADONE HCL 5 MG TABLET (FOR DETOX USE ONLY) PO SCH (10:20)
[2017-09-29] MEDS: ASPIRIN 81 MG CHEWABLE TABLETS PO SCH (10:20)
[2017-09-29] MEDS: ZOLPIDEM TARTRATE 10 MG TABLET (PARK CARE ONLY) PO PRN (22:26)
[2017-09-29] MEDS: QUEtiapine FUMARATE 50 MG TABLET PO SCH (22:26)
[2017-09-29] MEDS: THIAMINE HCL 100 MG TABLET (FP) PO SCH (22:26)
[2017-09-30] MEDS ORDERED: METHADONE HCL 5 MG TABLET (FOR DETOX USE ONLY) PO SCH (06:00)
[2017-09-30] MEDS ORDERED: METHADONE HCL 10 MG TABLET (FOR DETOX USE ONLY) PO SCH (10:00)
[2017-09-30] MEDS ORDERED: diazePAM 5 MG TABLET PO SCH (10:00)
[2017-09-30] MEDS: ASPIRIN 81 MG CHEWABLE TABLETS PO SCH (10:33)
[2017-09-30] MEDS: cloNIDine HCL 0.1 MG TABLET PO PRN (10:33)
[2017-09-30] MEDS: PRENATAL VITAMINS W/ FOLIC ACID TABLET (FP) PO SCH (10:34)
--- NOTE | 2017-09-30 10:36 | PN ---
[facility] Progress Note (SOAP) Subjective: received 10 mg methadone today feeling good social with peers in day room attend community meeting discuss [facility] out patient program for recovery Objective: 09/30/17 10:35 Vital Signs Temperature 97.3 F L 09/30/17 07:41 Pulse Rate 56 L 09/30/17 07:41 Respiratory Rate 18 09/30/17 07:41 Blood Pressure 107/68 09/30/17 07:41 O2 Sat by Pulse Oximetry (%) Laboratory Last Values WBC 5.0 K/mm3 (4.0-10.0) 09/26/17 07:45 RBC 4.50 M/mm3 (4.00-5.60) 09/26/17 07:45 Hgb 12.9 GM/dL (11.7-16.9) 09/26/17 07:45 Hct 37.5 % (35.4-49) 09/26/17 07:45 MCV 83.3 fl (80-96) 09/26/17 07:45 MCH 28.7 pg (25.7-33.7) 09/26/17 07:45 MCHC 34.4 g/dl (32.0-35.9) 09/26/17 07:45 RDW 13.4 % (11.9-15.9) 09/26/17 07:45 Plt Count 191 K/MM3 (134-434) D 09/26/17 07:45 MPV 7.8 fl (7.5-11.1) 09/26/17 07:45 Sodium 143 mmol/L (136-145) 09/26/17 07:45 Potassium 4.2 mmol/L (3.5-5.1) 09/26/17 07:45 Chloride 106 mmol/L (98-107) 09/26/17 07:45 Carbon Dioxide 32 mmol/L (21-32) 09/26/17 07:45 Anion Gap 5 (8-16) L 09/26/17 07:45 BUN 13 mg/dL (7-18) 09/26/17 07:45 Creatinine 1.1 mg/dL (0.7-1.3) 09/26/17 07:45 Creat Clearance w eGFR > 60 (>60) 09/26/17 07:45 Random Glucose 85 mg/dL (74-106) 09/26/17 07:45 Calcium 8.7 mg/dL (8.5-10.1) 09/26/17 07:45 Total Bilirubin 0.6 mg/dL (0.2-1.0) 09/26/17 07:45 AST 39 U/L (15-37) H D 09/26/17 07:45 ALT 55 U/L (12-78) 09/26/17 07:45 Alkaline Phosphatase 85 U/L (45-117) 09/26/17 07:45 Total Protein 7.1 g/dl (6.4-8.2) 09/26/17 07:45 Albumin 3.6 g/dl (3.4-5.0) 09/26/17 07:45 Urine Color Straw 09/26/17 17:02 Urine Appearance Clear 09/26/17 17:02 Urine pH 8.0 (5.0-8.0) D 09/26/17 17:02 Ur Specific [place] 1.005 (1.001-1.035) 09/26/17 17:02 Urine Protein Negative (NEGATIVE) 09/26/17 17:02 Urine Glucose (UA) Negative (NEGATIVE) 09/26/17 17:02 Urine Ketones Negative (NEGATIVE) 09/26/17 17:02 Urine Blood Negative (NEGATIVE) 09/26/17 17:02 Urine Nitrite Negative (NEGATIVE) 09/26/17 17:02 Urine Bilirubin Negative (<2.0 mg/dL) 09/26/17 17:02 Urine Urobilinogen 2.0 mg/dL (0.2-1.0) 09/26/17 17:02 Ur Leukocyte Esterase Negative (NEGATIVE) 09/26/17 17:02 Urine WBC (Auto) 2 /hpf (3-5) 09/25/17 23:50 Urine RBC (Auto) 209 /hpf (0-3) 09/25/17 23:50 Urine Mucus Moderate 09/25/17 23:50 RPR Titer Nonreactive (NONREACTIVE) 09/26/17 07:45 HIV 1&2 Antibody Screen Negative 09/26/17 07:45 HIV P24 Antigen Negative 09/26/17 07:45 lab noted Assessment: 09/30/17 10:36 mild withdrawal sx Plan: medically supervised detox
[2017-09-30] MEDS: QUEtiapine FUMARATE 50 MG TABLET PO SCH (22:17)
[2017-09-30] MEDS: THIAMINE HCL 100 MG TABLET (FP) PO SCH (22:17)
[2017-09-30] MEDS: ZOLPIDEM TARTRATE 10 MG TABLET (PARK CARE ONLY) PO PRN (22:19)
[2017-09-30 22:48] VITALS: TEMP 97.7
[2017-10-01] MEDS ORDERED: METHADONE HCL 5 MG TABLET (FOR DETOX USE ONLY) PO SCH (06:00)
[2017-10-01 07:40] VITALS: BP 108/71; PULSE 57
--- NOTE | 2017-10-01 08:05 | DS ---
[facility] Detox Discharge Summary Admission Date: 09/25/17 Discharge Date: 10/01/17 - History Present History: Alcohol Dependence, Opioid Dependence, Sedative Dependence Additional Comments: Patient stable. Patient to follow up with PMD 1-2 weeks upon discharge. If worsening symptoms are present patient to go the ED, Urgent care or PMD. - Physical Exam Results Vital Signs: Vital Signs Temperature 97.7 F 10/01/17 07:40 Pulse Rate 57 L 10/01/17 07:40 Respiratory Rate 18 10/01/17 07:40 Blood Pressure 108/71 10/01/17 07:40 O2 Sat by Pulse Oximetry (%) Pertinent Admission Physical Exam Findings: Vital Signs Temperature 97.7 F 10/01/17 07:40 Pulse Rate 57 L 10/01/17 07:40 Respiratory Rate 18 10/01/17 07:40 Blood Pressure 108/71 10/01/17 07:40 O2 Sat by Pulse Oximetry (%) Laboratory Last Values WBC 5.0 K/mm3 (4.0-10.0) 09/26/17 07:45 RBC 4.50 M/mm3 (4.00-5.60) 09/26/17 07:45 Hgb 12.9 GM/dL (11.7-16.9) 09/26/17 07:45 Hct 37.5 % (35.4-49) 09/26/17 07:45 MCV 83.3 fl (80-96) 09/26/17 07:45 MCH 28.7 pg (25.7-33.7) 09/26/17 07:45 MCHC 34.4 g/dl (32.0-35.9) 09/26/17 07:45 RDW 13.4 % (11.9-15.9) 09/26/17 07:45 Plt Count 191 K/MM3 (134-434) D 09/26/17 07:45 MPV 7.8 fl (7.5-11.1) 09/26/17 07:45 Sodium 143 mmol/L (136-145) 09/26/17 07:45 Potassium 4.2 mmol/L (3.5-5.1) 09/26/17 07:45 Chloride 106 mmol/L (98-107) 09/26/17 07:45 Carbon Dioxide 32 mmol/L (21-32) 09/26/17 07:45 Anion Gap 5 (8-16) L 09/26/17 07:45 BUN 13 mg/dL (7-18) 09/26/17 07:45 Creatinine 1.1 mg/dL (0.7-1.3) 09/26/17 07:45 Creat Clearance w eGFR > 60 (>60) 09/26/17 07:45 Random Glucose 85 mg/dL (74-106) 09/26/17 07:45 Calcium 8.7 mg/dL (8.5-10.1) 09/26/17 07:45 Total Bilirubin 0.6 mg/dL (0.2-1.0) 09/26/17 07:45 AST 39 U/L (15-37) H D 09/26/17 07:45 ALT 55 U/L (12-78) 09/26/17 07:45 Alkaline Phosphatase 85 U/L (45-117) 09/26/17 07:45 Total Protein 7.1 g/dl (6.4-8.2) 09/26/17 07:45 Albumin 3.6 g/dl (3.4-5.0) 09/26/17 07:45 Urine Color Straw 09/26/17 17:02 Urine Appearance Clear 09/26/17 17:02 Urine pH 8.0 (5.0-8.0) D 09/26/17 17:02 Ur Specific [place] 1.005 (1.001-1.035) 09/26/17 17:02 Urine Protein Negative (NEGATIVE) 09/26/17 17:02 Urine Glucose (UA) Negative (NEGATIVE) 09/26/17 17:02 Urine Ketones Negative (NEGATIVE) 09/26/17 17:02 Urine Blood Negative (NEGATIVE) 09/26/17 17:02 Urine Nitrite Negative (NEGATIVE) 09/26/17 17:02 Urine Bilirubin Negative (<2.0 mg/dL) 09/26/17 17:02 Urine Urobilinogen 2.0 mg/dL (0.2-1.0) 09/26/17 17:02 Ur Leukocyte Esterase Negative (NEGATIVE) 09/26/17 17:02 Urine WBC (Auto) 2 /hpf (3-5) 09/25/17 23:50 Urine RBC (Auto) 209 /hpf (0-3) 09/25/17 23:50 Urine Mucus Moderate 09/25/17 23:50 RPR Titer Nonreactive (NONREACTIVE) 09/26/17 07:45 HIV 1&2 Antibody Screen Negative 09/26/17 07:45 HIV P24 Antigen Negative 09/26/17 07:45 - Treatment Hospital Course: Detox Protocol Followed, Detoxed Safely, Responded well, Discharged Condition Good Patient has Accepted a Rehab Referral to: Out Patient Programs - Medication Discharge Medications: Ambulatory Orders Bupropion HCl [Wellbutrin -] 200 mg PO DAILY #30 tablet 08/13/17 [place] Carbonate [Eskalith -] 300 mg PO BID #60 capsule 08/13/17 Quetiapine Fumarate [Seroquel -] 50 mg PO HS #60 tablet 08/13/17 Aspirin [ASA -] 81 mg PO DAILY tab.chew 09/29/17 - Diagnosis (1) QT prolongation Status: Acute (2) Alcohol dependence with uncomplicated withdrawal Status: Chronic (3) Bradycardia Status: Chronic (4) Cocaine dependence, uncomplicated Status: Chronic (5) GERD (gastroesophageal reflux disease) Status: Chronic Qualifiers: Esophagitis presence: without esophagitis Qualified Code(s): K21.9 - Gastro -esophageal reflux disease without esophagitis (6) Hearing loss in left ear Status: Chronic Qualifiers: Hearing loss type: unspecified Qualified Code(s): H91.92 - Unspecified hearing loss, left ear (7) Hepatitis C Status: Chronic Qualifiers: Viral hepatitis chronicity: chronic Hepatic coma status: without hepatic coma Qualified Code(s): B18.2 - Chronic viral hepatitis C (8) Nicotine dependence Status: Chronic Qualifiers: Nicotine product type: cigarettes Substance use status: uncomplicated Qualified Code(s): F17.210 - Nicotine dependence, cigarettes, uncomplicated (9) Obesity Status: Chronic (10) Opioid dependence with withdrawal Status: Chronic (11) Sedative, hypnotic or anxiolytic dependence with withdrawal, uncomplicated Status: Chronic (12) Seizure Status: Chronic (13) anxiety and depression Status: Chronic - AMA Did Patient Leave Against Medical Advice: No
[2017-10-01] MEDS: PRENATAL VITAMINS W/ FOLIC ACID TABLET (FP) PO SCH (09:00)
[2017-10-01] MEDS: ASPIRIN 81 MG CHEWABLE TABLETS PO SCH (09:00)
[2017-10-01] MEDS: ACETAMINOPHEN 325 MG TABLET (FP) PO PRN (09:01)
== END 2017-10-01 09:08 | disposition home or self-care (01) | DRG 773 ==
LOC: YASAS 21:44 → Y6N 22:32
PROVIDERS: ADMIT Surgery; ATTEND Surgery
PROC: HZ2ZZZZ Detoxification Services for Substance Abuse Treatment (ICD-10-PCS; principal; 2017-09-25)
DX: F11.23 Opioid dependence with withdrawal (principal); F13.230 Sedative, hypnotic or anxiolytic dependence with withdrawal, uncomplicated; F10.20 Alcohol dependence, uncomplicated; F14.20 Cocaine dependence, uncomplicated; F17.210 Nicotine dependence, cigarettes, uncomplicated; F41.9 Anxiety disorder, unspecified; F19.24 Other psychoactive substance dependence with psychoactive substance-induced mood disorder; G40.509 Epileptic seizures related to external causes, not intractable, without status epilepticus; B18.2 Chronic viral hepatitis C; H91.92 Unspecified hearing loss, left ear; K21.9 Gastro-esophageal reflux disease without esophagitis; G47.00 Insomnia, unspecified; R00.1 Bradycardia, unspecified; R76.11 Nonspecific reaction to tuberculin skin test without active tuberculosis; Z90.49 Acquired absence of other specified parts of digestive tract; Z59.0 Homelessness
CPT/HCPCS: 36415; 71046-TC-FY; 80053; 81003; 81015; 85027; 86593; 87389; 93005; 93010; J0735

== ENCOUNTER 2017-12-13 08:12 | Inpatient (IN) | payer OTHER ==
[2017-12-13 09:06] VITALS: BMI 29.0
--- NOTE | 2017-12-13 10:04 | HP ---
COWS - Scale Resting Pulse: 0= [place] 80 or Below Sweatin= Chills/Flushing Restless Observation: 3= Extraneous Movement Pupil Size: 1= Pupils >than Normal Bone or Joint Aches: 2= Severe Diffuse Aches Runny Nose/ Eye Tearin= Runny Nose/Eyes GI Upset > 30mins: 3= Vomiting/Diarrhea Tremor Observation: 2= Slight Tremor Visible Yawning Observation: 1= 1-2x During Session Anxiety or Irritability: 2=Irritable/Anxious Goose Flesh Skin: 0=Smooth Skin COWS Score: 17 CIWA Score - CIWA Score Nausea/Vomitin Muscle Tremors: 3 Anxiety: 2 Agitation: 2 Paroxysmal Sweats: 1-Minimal Palms Moist Orientation: 0-Oriented Tacttile Disturbances: 2-Mild Itch/Numbness/Burn Auditory Disturbances: 2-Mild Harshness/Frighten Visual Disturbances: 1-Very Mild Sensitivity Headache: 2-Mild CIWA-Ar Total Score: 18 Admission ROS [facility] - HPI Chief Complaint: i need help to stop using heroin,alcohol,and xanax Allergies/Adverse Reactions: Allergies Allergy/AdvReac Type Severity Reaction Status Date / Time egg Allergy Intermediate Hives Verified 12/13/17 08:51 shellfish derived Allergy Intermediate Difficulty Verified 12/13/17 08:51 Breathing fish derived Allergy Difficulty Verified 12/13/17 08:51 Breathing No Known Drug Allergies Allergy Verified 12/13/17 08:51 seafood Allergy Intermediate Difficulty Uncoded 12/13/17 08:51 Breathing History of Present Illness: this 42 years old male with heroin,alcohol and xanax dependence seeking detox, withdrawal symptom,last5 treatment [facility] 09/25/17 to 10/01/17 last seizure withdrawal symptom last 09/06 weight loss multiple admissions in the past but relapsing nicotine dependence weight loss longest period of sobriety 3 months insomnia ,bipolar disorder - Ebola screening Have you traveled outside of the country in the last 21 days: No Have you had contact with anyone from an Ebola affected area: No Have you been sick,other than usual withdrawal symptoms: No Do you have a fever: No - Review of Systems Constitutional: Chills, Loss of Appetite, Malaise, Night Sweats, Changes in sleep, Weakness, Unintentional Wgt. Loss EENT: reports: Tearing, Hearing Loss Respiratory: reports: No Symptoms reported Cardiac: reports: No Symptoms Reported GI: reports: Diarrhea, Nausea, Vomiting, Abdominal cramping : reports: No Symptoms Reported Musculoskeletal: reports: Back Pain, Joint Pain, Muscle Pain, Neck Pain Integumentary: reports: Dryness Neuro: reports: Headache, Tremors Endocrine: reports: No Symptoms Reported Hematology: reports: No Symptoms Reported Psychiatric: reports: Anxious, Depressed, other (nsomnia) Patient History - Patient Medical History Hx Anemia: No Hx Asthma: No Hx Chronic Obstructive Pulmonary Disease (COPD): No Hx Cancer: No Hx Cardiac Disorders: No Hx Congestive Heart Failure: No Hx Hypertension: No Hx Hypercholesterolemia: No Hx Pacemaker: No HX Cerebrovascular Accident: No Hx Seizures: Yes (PATIENT REPORTED HAVING SEIZURES FROM WITHDRAWAL DOES NOT RECALL THE DATE.) Hx Dementia: No Hx Diabetes: No Hx Gastrointestinal Disorders: No Hx Liver Disease: Yes (Hep C) Hx Genitourinary Disorders: No Hx Sexually Transmitted Disorders: No Hx Renal Disease (ESRD): No Hx Thyroid Disease: No Hx Human Immunodeficiency Virus (HIV): No (NEGATIVE 05/2017 ) Hx Hepatitis C: Yes (Not treated) Hx Depression: No Hx Suicide Attempt: No Hx Bipolar Disorder: Yes ([place], Seroquel) Hx Schizophrenia: No Other Medical History: no suicidal,no homicidal - Patient Surgical History Past Surgical History: Yes Hx Neurologic Surgery: No Hx Cataract Extraction: No Hx Cardiac Surgery: No Hx Lung Surgery: No Hx Breast Surgery: No Hx Breast Biopsy: No Hx Abdominal Surgery: No Hx Appendectomy: No Hx Cholecystectomy: Yes ( [place] 03/2011) Hx Genitourinary Surgery: No Hx Section: No Hx Orthopedic Surgery: No Other Surgical History: EAR SX BOTH EARS A CHILD-TUBE INSERTION Anesthesia Reaction: No - PPD History Previous Implant?: Yes Implanted On Prior R Admission?: No Date: 10/09/16 Results: 0 mm PPD to be Administered?: Yes - Smoking Cessation Smoking history: Current every day smoker Have you smoked in the past 12 months: Yes Aproximately how many cigarettes per day: 10 Cigars Per Day: 0 Hx Chewing Tobacco Use: No Initiated information on smoking cessation: Yes 'Breaking Loose' booklet given: 12/13/17 - Substance & Tx. History Hx Alcohol Use: Yes Hx Substance Use: Yes Substance Use Type: Alcohol, Heroin, Tranquilizers - Substances Abused Heroin Route: Injection Frequency: Daily Amount used: 10-12 BAGS Age of first use: 30 Date of Last Use: 12/12/17 Alcohol Route: Oral Frequency: Daily Amount used: 1 PINT OF VODKA, 6-12 OZ CANS OF BEER Age of first use: 16 Date of Last Use: 12/12/17 XANAX Route: Oral Frequency: 3-6 times per week Amount used: 4 MG/DAILY Age of first use: 35 Date of Last Use: 12/12/17 Family Disease History - Family Disease History Family Disease History: Diabetes: Father (), Heart Disease: Father, Mother (ashma and emphysema- ), Respiratory: Mother, Other: Brother ( alcoholic) Admission Physical Exam [facility] - Vital Signs Vital Signs: Vital Signs - 24 hr 12/13/17 08:47 Temperature 98.1 F Pulse Rate 66 Respiratory 19 Rate Blood Pressure 132/84 - Physical General Appearance: Yes: Moderate Distress, Tremorous, Irritable, Sweating, Anxious HEENTM: Yes: ADELA, Nasal Congestion Respiratory: Yes: Within Normal Limits, Lungs Clear, Normal Breath Sounds Neck: Yes: Within Normal Limits, Supple, Trachea in good position Breast: Yes: Within Normal Limits Cardiology: Yes: Within Normal Limits, Regular Rhythm, Regular Rate, S1, S2 Abdominal: Yes: Within Normal Limits, Normal Bowel Sounds, Soft Genitourinary: Yes: Within Normal Limits Back: Yes: Muscle Spasm Musculoskeletal: Yes: Back pain, Muscle Pain Extremities: Yes: Within Normal Limits, Tremors Neurological: Yes: database architect II-XII NML intact, Fully Oriented, Alert, Motor Strength 5/5 Integumentary: Yes: Dry Lymphatic: Yes: Within Normal Limits - Diagnostic (1) Opioid dependence, uncomplicated Current Visit: No Status: Acute (2) Intravenous drug user Current Visit: No Status: Acute (3) Alcohol dependence with uncomplicated withdrawal Current Visit: No Status: Chronic (4) Bipolar disorder Current Visit: No Status: Chronic Comment: As per self-report and existing records.currently asymptomatic.Well-contolled on lithium and risperdal. (5) Cocaine dependence, uncomplicated Current Visit: Yes Status: Acute (6) Hepatitis C Current Visit: No Status: Chronic Qualifiers: Viral hepatitis chronicity: chronic Hepatic coma status: without hepatic coma Qualified Code(s): B18.2 - Chronic viral hepatitis C (7) Nicotine dependence Current Visit: Yes Status: Acute Qualifiers: Nicotine product type: cigarettes Substance use status: uncomplicated Qualified Code(s): F17.210 - Nicotine dependence, cigarettes, uncomplicated (8) Sedative, hypnotic or anxiolytic dependence with withdrawal, uncomplicated Current Visit: Yes Status: Acute (9) Seizure Current Visit: No Status: Chronic (10) hearing loss both ears Current Visit: No Status: Chronic Comment: DUE TO CHILDHOOD EAR INFECTIONS Cleared for Admission [facility] - Detox or Rehab [facility] Level of Care: Medically Managed Detox Regimen/Protocol: Methadone/Valium [facility] Breath Alcohol Content Breath Alcohol Content: 0 Urine Drug Screen - Results Drug Screen Negative: No Urine Drug Screen Results: ALEXEY-Cocaine, OPI-Opiates, BAR-Barbiturates, BZO- Benzodiazepines, OXY-Oxycodone, FEN-Fentanyl
[2017-12-13] MEDS ORDERED: hydrOXYzine PAMOATE 50 MG CAPSULE (FP) PO PRN (10:18)
[2017-12-13] MEDS ORDERED: MAGNESIUM HYDROX 2400MG/30ML ORAL SUSPENSION 30 ML CUP PO PRN (10:18)
[2017-12-13] MEDS ORDERED: LOPERAMIDE HCL 2 MG CAPSULE PO PRN (10:18)
[2017-12-13] MEDS ORDERED: MAGNESIUM CITRATE 300 ML BOTTLE PO PRN (10:18)
[2017-12-13] MEDS ORDERED: guaiFENesin/D-METHORPHAN HB 10 ML UNIT-DOSE CUPS PO PRN (10:18)
[2017-12-13] MEDS ORDERED: MAG HYDROX/AL HYDROX/SIMETH 30 ML UNIT-DOSE CUP PO PRN (10:18)
[2017-12-13] MEDS ORDERED: P-EPHED 60MG/TRIPROLIDI 2.5MG TABLET PO PRN (10:18)
[2017-12-13] MEDS ORDERED: NICOTINE POLACRILEX 2 MG GUM BUC PRN (10:18)
[2017-12-13] MEDS ORDERED: MENTHOL/PHENOL 1 EACH UD MM PRN (10:18)
[2017-12-13] MEDS ORDERED: diazePAM 5 MG TABLET PO ONE (10:45)
[2017-12-13] MEDS ORDERED: METHADONE HCL 10 MG TABLET (FOR DETOX USE ONLY) PO ONE ×2 (10:45→23:00)
[2017-12-13] MEDS: NICOTINE 21 MG/24 HOURS TOPICAL PATCH TD SCH (11:42)
[2017-12-13] MEDS: diazePAM 5 MG TABLET PO SCH ×2 (14:13→22:14)
[2017-12-13] MEDS: ACETAMINOPHEN 325 MG TABLET (FP) PO PRN (16:47)
[2017-12-13] MEDS: diazePAM 5 MG TABLET PO PRN (16:47)
--- NOTE | 2017-12-13 17:48 | CONSULT ---
[facility] Psychiatric Consult - Data Date of interview: 12/13/17 Admission source: [facility] Identifying data: This is one of multiple admissions to [facility] for this 42 y/ o male self-referred for detoxification treatment (heroin,cocaine, alcohol,xanax).Admitted to [address] [place] [address].Patient is ,a father of two, undomiciled,currently unemployed (quit his job last week). Substance Abuse History: Confirmed by the patient in this interview.Details in current [facility] report : Smoking history: Current every day smoker. Have you smoked in the past 12 months: Yes. Aproximately how many cigarettes per day: 10. Cigars Per Day: 0. Hx Chewing Tobacco Use: No. Initiated information on smoking cessation: Yes. 'Breaking Loose' booklet given: 12/13/17. - Substance & Tx. History. Hx Alcohol Use: Yes. Hx Substance Use: Yes. Substance Use Type : Alcohol, Heroin, Tranquilizers. - Substances Abused. Heroin. Route: Injection. Frequency: Daily. Amount used: 10-12 BAGS. Age of first use: 30. Date of Last Use: 12/12/17. Alcohol. Route: Oral. Frequency: Daily. Amount used: 1 PINT OF VODKA, 6-12 OZ CANS OF BEER. Age of first use: 16. Date of Last Use: 12/12/17. XANAX. Route: Oral. Frequency: 3-6 times per week. Amount used: 4 MG/DAILY. Age of first use: 35. Date of Last Use: Medical History: Medical profile remains consistent with GERD,hepatitis C, hearing impediment since childhood (past history of ear surgery),dyslipidemia, withdrawal seizures and cholecystectomy (2011). Psychiatric History: In this interview, the patient denies history of psychiatric hospitalization, which contradicts self-report at a previous interview, indicative of one psychiatric hospitalization at [place] (2011) .Patient endorses the diagnosis of Bipolar Disorder. Used to be followed at the [place] [facility] in [facility]. NO show for more than a year according to the patient.Mr Stanton states that he has stopped taked medications (risperdal + lithium + seroquel + clonazepam) for several months.Dose not wish to resume any psychotropic medication other than seroquel, zolpidem in addition to the detoxification regimen. Patient denies history of suicide attempts. Physical/Sexual Abuse/Trauma History: Patient denies. Additional Comment: Urine Drug Screen Results: ALEXEY-Cocaine, OPI-Opiates, BAR- Barbiturates, BZO-Benzodiazepines, OXY-Oxycodone, FEN-Fentanyl.Noted. Mental Status Exam - Mental Status Exam Alert and Oriented to: Time, Place, Person Cognitive Function: Good Mood: Withdrawn, Hopeful Affect: Appropriate, Normal Range Patient Behavior: Fatigued, Cooperative Speech Pattern: Clear, Appropriate Voice Loudness: Normal Thought Process: Goal Oriented Thought Disorder: Not Present Hallucinations: Denies Suicidal Ideation: Denies Homicidal Ideation: Denies Insight/Judgement: Poor Sleep: Poorly (wants ambien), Difficulty falling asleep Appetite: Good Muscle strength/Tone: Normal Gait/Station: Normal Psychiatric Findings - Problem List ([place] 1, 2,3) (1) Alcohol dependence with uncomplicated withdrawal Current Visit: No Status: Acute (2) Cocaine dependence, uncomplicated Current Visit: Yes Status: Acute (3) Opioid dependence with withdrawal Current Visit: Yes Status: Acute (4) Sedative, hypnotic or anxiolytic dependence with withdrawal, uncomplicated Current Visit: Yes Status: Acute (5) Nicotine dependence Current Visit: Yes Status: Acute Qualifiers: Nicotine product type: cigarettes Substance use status: uncomplicated Qualified Code(s): F17.210 - Nicotine dependence, cigarettes, uncomplicated (6) Drug-induced mood disorder Current Visit: Yes Status: Acute (7) Insomnia Current Visit: Yes Status: Acute - Initial Treatment Plan Initial Treatment Plan: Psychoeducation.Sleep hygiene.Detoxification in progress.Medication : ambien 10 mg po hs prn.Side effects/benefits are discussed with the patient.Seroquel is held in view of abnormal EKG. Mr Stanton agrees to this careplan.Observation.
[2017-12-13 18:05] LABS: URINE APPEARANCE CLEAR; URINE BILIRUBIN NEGATIVE (<2.0 mg/dL); URINE COLOR DKYELLOW; URINE GLUCOSE (UA) NEGATIVE (NEGATIVE); URINE KETONE NEGATIVE (NEGATIVE); URINE LEUK ESTERASE NEGATIVE (NEGATIVE); URINE NITRITE NEGATIVE (NEGATIVE); URINE UROBILINOGEN NEGATIVE mg/dL (0.2-1.0)
--- NOTE | 2017-12-13 18:10 | EKG ---
Test Reason : Blood Pressure : / mmHG Vent. Rate : 035 BPM Atrial Rate : 035 BPM P-R Int : 138 ms QRS Dur : 094 ms QT Int : 522 ms P-R-T Axes : 048 022 029 degrees QTc Int : 398 ms MARKED SINUS BRADYCARDIA MINIMAL VOLTAGE CRITERIA FOR LVH, MAY BE NORMAL VARIANT ABNORMAL ECG WHEN COMPARED WITH ECG OF 26-SEP-2017 15:47, NO SIGNIFICANT CHANGE WAS FOUND Confirmed by JACK PATEL MD ([id number]) on 12/13/2017 6:10:00 PM Referred By: Confirmed By:JACK PATEL MD
[2017-12-13 18:22] LABS: URINE PROTEIN 1+ (NEGATIVE)
[2017-12-13 18:31] LABS: URINE MUCUS MANY
[2017-12-13] MEDS ORDERED: QUEtiapine FUMARATE 50 MG TABLET PO SCH (22:00)
[2017-12-13] MEDS ORDERED: MELATONIN 5 MG TABLETS PO PRN (22:00)
[2017-12-13] MEDS: cloNIDine HCL 0.1 MG TABLET PO SCH (22:14)
[2017-12-13] MEDS: THIAMINE HCL 100 MG TABLET (FP) PO SCH (22:14)
[2017-12-13] MEDS: CYCLOBENZAPRINE HCL 10 MG TABLET (FP) PO PRN (22:14)
[2017-12-13] MEDS: ZOLPIDEM TARTRATE 10 MG TABLET (PARK CARE ONLY) PO PRN (22:16)
[2017-12-14] MEDS: IBUPROFEN 400 MG TABLET (FP) PO PRN ×2 (04:12→16:47)
[2017-12-14] MEDS: diazePAM 5 MG TABLET PO PRN ×3 (04:12→16:46)
[2017-12-14] MEDS: diazePAM 5 MG TABLET PO SCH ×3 (05:28→22:23)
[2017-12-14] MEDS ORDERED: METHADONE HCL 10 MG TABLET (FOR DETOX USE ONLY) PO SCH (10:00)
[2017-12-14] MEDS: PRENATAL VITAMINS W/ FOLIC ACID TABLET (FP) PO SCH (10:29)
[2017-12-14] MEDS: cloNIDine HCL 0.1 MG TABLET PO SCH ×2 (10:30→22:22)
[2017-12-14] MEDS: NICOTINE 21 MG/24 HOURS TOPICAL PATCH TD SCH (10:30)
[2017-12-14] MEDS: ASPIRIN 81 MG CHEWABLE TABLETS PO SCH (10:30)
[2017-12-14 10:39] LABS: HEMATOCRIT 39.4 % (35.4-49); HEMOGLOBIN 13.1 GM/dL (11.7-16.9); MCH 27.5 pg (25.7-33.7); MCHC 33.1 g/dl (32.0-35.9); MEAN PLT VOLUME 8.6 fl (7.5-11.1); PLATELET COUNT 192 K/MM3 (134-434); RBC 4.75 M/mm3 (4.00-5.60); RDW 13.8 % (11.9-15.9); WHITE BLOOD COUNT 4.6 K/mm3 (4.0-10.0)
[2017-12-14 11:41] LABS: ALBUMIN 3.8 g/dl (3.4-5.0); ALK PHOS 106 U/L (45-117); ANION GAP 8 MMOL/L (8-16); BILIRUBIN,TOTAL 0.6 mg/dL (0.2-1); BLOOD UREA NITROGEN 11 mg/dL (7-18); CALCIUM 9.1 mg/dL (8.5-10.1); CHLORIDE 100 mmol/L (98-107); CO2 30 mmol/L (21-32); CREATININE 0.9 mg/dL (0.55-1.3); GLUCOSE,RANDOM 77 mg/dL (74-106); POTASSIUM 5.3 mmol/L (3.5-5.1); SGOT/AST 59 U/L (15-37); SGPT/ALT 51 U/L (13-61); SODIUM 138 mmol/L (136-145); TOT PROT 7.8 g/dl (6.4-8.2)
[2017-12-14] MEDS ORDERED: SODIUM POLYSTYRENE SULFONATE 15 GM/60 ML BOTTLE PO ONE (12:09)
--- NOTE | 2017-12-14 12:13 | PN ---
[facility] CIWA - CIWA Score Nausea/Vomitin-No Nausea/No Vomiting Muscle Tremors: None Anxiety: 0-No Anxiety, at Ease Agitation: 0-Normal Activity Paroxysmal Sweats: No Perspiration Orientation: 0-Oriented Tacttile Disturbances: 0-None Auditory Disturbances: 0-None Visual Disturbances: 0-None Headache: 0-None Present CIWA-Ar Total Score: 0 [facility] COWS - Scale Resting Pulse: 0= [place] 80 or Below Sweatin= Chills/Flushing Restless Observation: 0= Sits Still Pupil Size: 0= Normal to Room Light Bone or Joint Aches: 1= Mild Discomfort Runny Nose/ Eye Tearin= None GI Upset > 30mins: 0= None Tremor Observation of Outstretched Hands: 0= None Yawning Observation: 0= None Anxiety or Irritability: 0= None Goose Flesh Skin: 3=Piloerection COWS Score: 5 [facility] Progress Note (SOAP) Subjective: CHILLS AND MILD DISCOMFORT. Objective: 12/14/17 12:11 Laboratory Tests 12/13/17 12/14/17 12/14/17 12:08 06:00 06:00 WBC 4.6 RBC 4.75 Hgb 13.1 Hct 39.4 MCV 83.0 MCH 27.5 MCHC 33.1 RDW 13.8 Plt Count 192 MPV 8.6 D Sodium 138 Potassium 5.3 H Chloride 100 Carbon Dioxide 30 Anion Gap 8 BUN 11 Creatinine 0.9 Creat Clearance w eGFR > 60 Random Glucose 77 Calcium 9.1 Total Bilirubin 0.6 AST 59 H ALT 51 Alkaline Phosphatase 106 Total Protein 7.8 Albumin 3.8 Urine Color Dkyellow Urine Appearance Clear Urine pH 5.0 D Ur Specific [place] 1.021 Urine Protein 1+ H Urine Glucose (UA) Negative Urine Ketones Negative Urine Blood Negative Urine Nitrite Negative Urine Bilirubin Negative Urine Urobilinogen Negative Ur Leukocyte Esterase Negative Urine WBC (Auto) 9 Urine RBC (Auto) 3 Urine Mucus Many Vital Signs Temperature 97.7 F 12/14/17 09:48 Pulse Rate 66 12/14/17 09:48 Respiratory Rate 18 12/14/17 09:48 Blood Pressure 110/70 12/14/17 09:48 O2 Sat by Pulse Oximetry (%) ALERT AND ORIENTED SKIN WARM AND DRY, +GOOSEFLESH CAR S1S2. PT DENIES CHEST PAIN AND PALPITATIONS RESP CTA BL Assessment: 12/14/17 12:12 WITHDRAWAL SYNDROME HYPERKALEMIA Plan: CONTINUE DETOX PER PROTOCOL [place] 30G PO X ONE REPEAT BMP IN AM REPEAT EKG IN AM
[2017-12-14] MEDS: THIAMINE HCL 100 MG TABLET (FP) PO SCH (22:22)
[2017-12-14] MEDS: ZOLPIDEM TARTRATE 10 MG TABLET (PARK CARE ONLY) PO PRN (22:25)
[2017-12-15] MEDS: IBUPROFEN 400 MG TABLET (FP) PO PRN ×3 (00:50→16:39)
[2017-12-15] MEDS: diazePAM 5 MG TABLET PO PRN ×3 (00:50→16:38)
[2017-12-15] MEDS: ACETAMINOPHEN 325 MG TABLET (FP) PO PRN (05:36)
[2017-12-15] MEDS: CYCLOBENZAPRINE HCL 10 MG TABLET (FP) PO PRN ×2 (05:36→22:14)
--- NOTE | 2017-12-15 08:01 | PN ---
[facility] Progress Note Note: ekg sinus bradycardia 30.min no chest pain,no shortness of breath,no dizziness history of sinus bracardia in the past Vital Signs Temperature 96.6 F L 12/15/17 06:46 Pulse Rate 52 L 12/15/17 06:46 Respiratory Rate 18 12/15/17 06:46 Blood Pressure 119/67 12/15/17 06:46 O2 Sat by Pulse Oximetry (%) treatment close monitoring repeat ekg at 11.00 am repeat bmp today,k is 5.3 on 12/14/17 awaiting for repeat k today
--- NOTE | 2017-12-15 09:01 | PN ---
[facility] Progress Note Note: SAW PT IN ROOM THIS MORNING. PT IS ALERT O X 3. NAD. DENIES CHEST PAIN,DIZZINESS ,HEADACHE,DROWSINESS,NAUSEA,VOMITING. REPORTS HX BRADYCARDIA WITH STRESS TEST 6 YEARS AGO WHICH WAS WNL. PT SAT UP IN BED WHILE TALKING TO HOSPITALITY MANAGER. DENIES SOB. Vital Signs 12/15/17 12/15/17 03:30 06:46 Temperature 96.6 F L Pulse Rate 52 L Respiratory 18 18 Rate Blood Pressure 119/67 Laboratory Tests 12/13/17 12/14/17 12/14/17 12:08 06:00 06:00 WBC 4.6 RBC 4.75 Hgb 13.1 Hct 39.4 MCV 83.0 MCH 27.5 MCHC 33.1 RDW 13.8 Plt Count 192 MPV 8.6 D Sodium 138 Potassium 5.3 H Chloride 100 Carbon Dioxide 30 Anion Gap 8 BUN 11 Creatinine 0.9 Creat Clearance w eGFR > 60 Random Glucose 77 Calcium 9.1 Total Bilirubin 0.6 AST 59 H ALT 51 Alkaline Phosphatase 106 Total Protein 7.8 Albumin 3.8 Urine Color Dkyellow Urine Appearance Clear Urine pH 5.0 D Ur Specific [place] 1.021 Urine Protein 1+ H Urine Glucose (UA) Negative Urine Ketones Negative Urine Blood Negative Urine Nitrite Negative Urine Bilirubin Negative Urine Urobilinogen Negative Ur Leukocyte Esterase Negative Urine WBC (Auto) 9 Urine RBC (Auto) 3 Urine Mucus Many RPR Titer 12/14/17 06:00 WBC RBC Hgb Hct MCV MCH MCHC RDW Plt Count MPV Sodium Potassium Chloride Carbon Dioxide Anion Gap BUN Creatinine Creat Clearance w eGFR Random Glucose Calcium Total Bilirubin AST ALT Alkaline Phosphatase Total Protein Albumin Urine Color Urine Appearance Urine pH Ur Specific [place] Urine Protein Urine Glucose (UA) Urine Ketones Urine Blood Urine Nitrite Urine Bilirubin Urine Urobilinogen Ur Leukocyte Esterase Urine WBC (Auto) Urine RBC (Auto) Urine Mucus RPR Titer Nonreactive SEE DR SALINAS'S NOTE. CARDIAC:SI S2, NO MURMUR, HR 52 AT 6 AM BUT 30 IN ECG. ASYMPTOMATIC IMPRESSION:HX OF BRADYCARDIA PLAN:INCREASE PO FLUIDS REPEAT LAB ORDERED BY DR. SALINAS MONITOR PT AND EVALUATE NEEDED.
[2017-12-15 10:10] LABS: ANION GAP 7 MMOL/L (8-16); BLOOD UREA NITROGEN 11 mg/dL (7-18); CHLORIDE 103 mmol/L (98-107); CO2 31 mmol/L (21-32); CREATININE 0.8 mg/dL (0.55-1.3); GLUCOSE,RANDOM 84 mg/dL (74-106); SODIUM 141 mmol/L (136-145)
[2017-12-15] MEDS: PRENATAL VITAMINS W/ FOLIC ACID TABLET (FP) PO SCH (10:45)
[2017-12-15] MEDS: NICOTINE 21 MG/24 HOURS TOPICAL PATCH TD SCH (10:45)
[2017-12-15] MEDS: ASPIRIN 81 MG CHEWABLE TABLETS PO SCH (10:45)
[2017-12-15] MEDS: diazePAM 5 MG TABLET PO SCH ×2 (10:45→22:14)
[2017-12-15] MEDS: METHADONE HCL 5 MG TABLET (FOR DETOX USE ONLY) PO SCH (10:45)
[2017-12-15] MEDS: cloNIDine HCL 0.1 MG TABLET PO SCH (10:45)
--- NOTE | 2017-12-15 11:44 | EKG ---
Test Reason : Blood Pressure : / mmHG Vent. Rate : 030 BPM Atrial Rate : 030 BPM P-R Int : 204 ms QRS Dur : 104 ms QT Int : 592 ms P-R-T Axes : 069 023 031 degrees QTc Int : 418 ms MARKED SINUS BRADYCARDIA ABNORMAL ECG WHEN COMPARED WITH ECG OF 13-DEC-2017 11:13, NO SIGNIFICANT CHANGE WAS FOUND Confirmed by BAMBI ALANIS MD ([id number]) on 12/15/2017 11:43:50 AM Referred By: Confirmed By:BAMBI ALANIS MD
--- NOTE | 2017-12-15 21:05 | PN ---
[facility] CIWA - CIWA Score Nausea/Vomitin-No Nausea/No Vomiting Muscle Tremors: None Anxiety: 0-No Anxiety, at Ease Agitation: 0-Normal Activity Paroxysmal Sweats: No Perspiration Orientation: 0-Oriented Tacttile Disturbances: 0-None Auditory Disturbances: 0-None Visual Disturbances: 0-None Headache: 0-None Present CIWA-Ar Total Score: 0 [facility] COWS - Scale Resting Pulse: 0= [place] 80 or Below Sweatin= No chills or Flushing Restless Observation: 0= Sits Still Pupil Size: 0= Normal to Room Light Bone or Joint Aches: 1= Mild Discomfort Runny Nose/ Eye Tearin= None GI Upset > 30mins: 0= None Tremor Observation of Outstretched Hands: 0= None Yawning Observation: 0= None Anxiety or Irritability: 0= None Goose Flesh Skin: 0=Smooth Skin COWS Score: 1 [facility] Progress Note (SOAP) Subjective: PATIENT TOLERATING DETOX WELL. HAS MILD BODY ACHES. PATIENT CONTINUES TO HAVE BRADYCARDIA. DENIES CHEST PAIN, SOB, PALPITATIONS, AND DIZZINESS. Laboratory Tests 12/13/17 12/14/17 12/14/17 12:08 06:00 06:00 WBC 4.6 RBC 4.75 Hgb 13.1 Hct 39.4 MCV 83.0 MCH 27.5 MCHC 33.1 RDW 13.8 Plt Count 192 MPV 8.6 D Sodium 138 Potassium 5.3 H Chloride 100 Carbon Dioxide 30 Anion Gap 8 BUN 11 Creatinine 0.9 Creat Clearance w eGFR > 60 Random Glucose 77 Calcium 9.1 Total Bilirubin 0.6 AST 59 H ALT 51 Alkaline Phosphatase 106 Total Protein 7.8 Albumin 3.8 Urine Color Dkyellow Urine Appearance Clear Urine pH 5.0 D Ur Specific [place] 1.021 Urine Protein 1+ H Urine Glucose (UA) Negative Urine Ketones Negative Urine Blood Negative Urine Nitrite Negative Urine Bilirubin Negative Urine Urobilinogen Negative Ur Leukocyte Esterase Negative Urine WBC (Auto) 9 Urine RBC (Auto) 3 Urine Mucus Many RPR Titer 12/14/17 12/15/17 06:00 07:30 WBC RBC Hgb Hct MCV MCH MCHC RDW Plt Count MPV Sodium 141 Potassium 4.0 Chloride 103 Carbon Dioxide 31 Anion Gap 7 L BUN 11 Creatinine 0.8 Creat Clearance w eGFR > 60 Random Glucose 84 Calcium 9.0 Total Bilirubin AST ALT Alkaline Phosphatase Total Protein Albumin Urine Color Urine Appearance Urine pH Ur Specific [place] Urine Protein Urine Glucose (UA) Urine Ketones Urine Blood Urine Nitrite Urine Bilirubin Urine Urobilinogen Ur Leukocyte Esterase Urine WBC (Auto) Urine RBC (Auto) Urine Mucus RPR Titer Nonreactive Vital Signs Objective: 12/15/17 10.25AM PE: ALERT AND ORIENTED X 3 SKIN WARM AND DRY CAR S1S2, EKG SHOW SINUS BRADYCARDIA. REPEAT EKG FOR 11AM. K+ LEVEL TODAY 4.0. APICAL HR 44 RESP: CTA BL EXT NO EDEMA, FULL ROM Assessment: 12/15/17 10:25AM BRADYCARDIA WITHDRAWAL SYNDROME Plan: CONTINUE DETOX PER PROTOCOL ENCOURAGE PO FLUIDS D/C CLONIDINE SINCE CLONIDINE BEING D/C THIS MORNING WILL REPEAT EKG AT 6PM WELL TO GIVE TIME FOR EFFECT OF MEDICATION TO BE MINIMAL. CONTINUE TO MONITOR CLINICALLY
[2017-12-15] MEDS: THIAMINE HCL 100 MG TABLET (FP) PO SCH (22:14)
[2017-12-15] MEDS: ZOLPIDEM TARTRATE 10 MG TABLET (PARK CARE ONLY) PO PRN (22:14)
[2017-12-16] MEDS: diazePAM 5 MG TABLET PO PRN ×2 (01:34→05:50)
[2017-12-16] MEDS: IBUPROFEN 400 MG TABLET (FP) PO PRN ×2 (01:34→10:47)
[2017-12-16] MEDS: ACETAMINOPHEN 325 MG TABLET (FP) PO PRN (05:50)
[2017-12-16] MEDS: PRENATAL VITAMINS W/ FOLIC ACID TABLET (FP) PO SCH (10:46)
[2017-12-16] MEDS: METHADONE HCL 5 MG TABLET (FOR DETOX USE ONLY) PO SCH (10:46)
[2017-12-16] MEDS: ASPIRIN 81 MG CHEWABLE TABLETS PO SCH (10:46)
[2017-12-16] MEDS: diazePAM 5 MG TABLET PO SCH ×2 (10:46→22:53)
[2017-12-16] MEDS: NICOTINE 21 MG/24 HOURS TOPICAL PATCH TD SCH (10:47)
[2017-12-16] MEDS: CYCLOBENZAPRINE HCL 10 MG TABLET (FP) PO PRN ×2 (10:48→22:56)
--- NOTE | 2017-12-16 12:09 | PN ---
[facility] Progress Note Note: Patient tolerating detox well. Denies chest pain, palpitations, dizziness. Laboratory Tests 12/13/17 12/14/17 12/14/17 12:08 06:00 06:00 WBC 4.6 RBC 4.75 Hgb 13.1 Hct 39.4 MCV 83.0 MCH 27.5 MCHC 33.1 RDW 13.8 Plt Count 192 MPV 8.6 D Sodium 138 Potassium 5.3 H Chloride 100 Carbon Dioxide 30 Anion Gap 8 BUN 11 Creatinine 0.9 Creat Clearance w eGFR > 60 Random Glucose 77 Calcium 9.1 Total Bilirubin 0.6 AST 59 H ALT 51 Alkaline Phosphatase 106 Total Protein 7.8 Albumin 3.8 Urine Color Dkyellow Urine Appearance Clear Urine pH 5.0 D Ur Specific [place] 1.021 Urine Protein 1+ H Urine Glucose (UA) Negative Urine Ketones Negative Urine Blood Negative Urine Nitrite Negative Urine Bilirubin Negative Urine Urobilinogen Negative Ur Leukocyte Esterase Negative Urine WBC (Auto) 9 Urine RBC (Auto) 3 Urine Mucus Many RPR Titer 12/14/17 12/15/17 06:00 07:30 WBC RBC Hgb Hct MCV MCH MCHC RDW Plt Count MPV Sodium 141 Potassium 4.0 Chloride 103 Carbon Dioxide 31 Anion Gap 7 L BUN 11 Creatinine 0.8 Creat Clearance w eGFR > 60 Random Glucose 84 Calcium 9.0 Total Bilirubin AST ALT Alkaline Phosphatase Total Protein Albumin Urine Color Urine Appearance Urine pH Ur Specific [place] Urine Protein Urine Glucose (UA) Urine Ketones Urine Blood Urine Nitrite Urine Bilirubin Urine Urobilinogen Ur Leukocyte Esterase Urine WBC (Auto) Urine RBC (Auto) Urine Mucus RPR Titer Nonreactive Vital Signs Temperature 98.1 F 12/16/17 09:24 Pulse Rate 42 L 12/16/17 09:24 Respiratory Rate 18 12/16/17 09:24 Blood Pressure 135/78 12/16/17 09:24 O2 Sat by Pulse Oximetry (%) PE alert and oriented x 3 skin warm and dry car s1s2, +bradycardia resp cta bl ext no edema a/p: withdrawal syndrome sinus bradycardia continue detox encourage oral fluids and amb ad manpreet continue to monitor clinically
[2017-12-16] MEDS: ZOLPIDEM TARTRATE 10 MG TABLET (PARK CARE ONLY) PO PRN (21:52)
[2017-12-16] MEDS: THIAMINE HCL 100 MG TABLET (FP) PO SCH (22:53)
[2017-12-17 09:22] VITALS: BP 141/81; PULSE 52; TEMP 98.1
[2017-12-17] MEDS ORDERED: METHADONE HCL 10 MG TABLET (FOR DETOX USE ONLY) PO SCH (10:00)
[2017-12-17] MEDS ORDERED: diazePAM 5 MG TABLET PO SCH (10:00)
[2017-12-17] MEDS: PRENATAL VITAMINS W/ FOLIC ACID TABLET (FP) PO SCH (10:45)
[2017-12-17] MEDS: ASPIRIN 81 MG CHEWABLE TABLETS PO SCH (10:46)
[2017-12-17] MEDS: CYCLOBENZAPRINE HCL 10 MG TABLET (FP) PO PRN (10:46)
[2017-12-17] MEDS: NICOTINE 21 MG/24 HOURS TOPICAL PATCH TD SCH (10:46)
--- NOTE | 2017-12-17 12:26 | DS ---
[facility] Detox Discharge Summary Admission Date: 12/13/17 Discharge Date: 12/17/17 - History Present History: Alcohol Dependence - Physical Exam Results Vital Signs: Vital Signs Temperature 98.1 F 12/17/17 09:21 Pulse Rate 52 L 12/17/17 09:21 Respiratory Rate 12/17/17 09:21 Blood Pressure 141/81 12/17/17 09:21 O2 Sat by Pulse Oximetry (%) Pertinent Admission Physical Exam Findings: Patient tolerating detox well. Medically stable. Denies SI/HI. IN NAD. PE:alert and oriented x 3. Skin warm and dry, Car S1s2, HR 55, Resp CTA BL, Ext: no edema. Full ROM. - Treatment Hospital Course: Detox Protocol Followed, Detoxed Safely, Responded well, Discharged Condition Good, Rehab Referral Accepted Patient has Accepted a Rehab Referral to: Patient d/c to [facility] rehab facility today. - Medication Discharge Medications: Ambulatory Orders Bupropion HCl [Wellbutrin -] 200 mg PO DAILY #30 tablet 08/13/17 [place] Carbonate [Eskalith -] 300 mg PO BID #60 capsule 08/13/17 Aspirin [ASA -] 81 mg PO DAILY tab.chew 09/29/17 Quetiapine Fumarate [Seroquel -] 50 mg PO HS 12/13/17 - Diagnosis (1) Withdrawal syndrome Current Visit: Yes Status: Resolved Qualifiers: Substance type: opioid Qualified Code(s): F11.23 - Opioid dependence with withdrawal (2) Bradycardia Current Visit: Yes Status: Acute - AMA Did Patient Leave Against Medical Advice: No
--- NOTE | 2017-12-17 12:38 | PN ---
[facility] Progress Note Note: Patient has history of bradycardia. Denies CP,palpitations, SOB and Dizziness. Heart rate today 55. Patient remains in stable medical condition.
[2017-12-18] MEDS ORDERED: METHADONE HCL 5 MG TABLET (FOR DETOX USE ONLY) PO SCH (06:00)
--- NOTE | 2017-12-18 23:25 | EKG ---
Test Reason : Blood Pressure : / mmHG Vent. Rate : 036 BPM Atrial Rate : 036 BPM P-R Int : 200 ms QRS Dur : 092 ms QT Int : 530 ms P-R-T Axes : 059 024 039 degrees QTc Int : 409 ms MARKED SINUS BRADYCARDIA ABNORMAL ECG WHEN COMPARED WITH ECG OF 15-DEC-2017 07:34, NO SIGNIFICANT CHANGE WAS FOUND Confirmed by MICHELLE ROSALES MD ([id number]) on 12/18/2017 11:24:58 PM Referred By: Confirmed By:MICHELLE ROSALES MD
--- NOTE | 2017-12-18 23:25 | EKG ---
Test Reason : Blood Pressure : / mmHG Vent. Rate : 036 BPM Atrial Rate : 036 BPM P-R Int : 182 ms QRS Dur : 090 ms QT Int : 508 ms P-R-T Axes : 049 017 029 degrees QTc Int : 392 ms MARKED SINUS BRADYCARDIA WITH PREMATURE ATRIAL COMPLEXES ABNORMAL ECG WHEN COMPARED WITH ECG OF 15-DEC-2017 11:12, PREMATURE ATRIAL COMPLEXES ARE NOW PRESENT Confirmed by MICHELLE ROSALES MD ([id number]) on 12/18/2017 11:24:50 PM Referred By: Confirmed By:MICHELLE ROSALES MD
== END 2017-12-17 13:05 | disposition home or self-care (01) | DRG 773 ==
LOC: YASAS 08:12 → Y3N 10:38
PROC: HZ2ZZZZ Detoxification Services for Substance Abuse Treatment (ICD-10-PCS; principal; 2017-12-13)
DX: F11.23 Opioid dependence with withdrawal (principal); F10.230 Alcohol dependence with withdrawal, uncomplicated; F13.230 Sedative, hypnotic or anxiolytic dependence with withdrawal, uncomplicated; F14.20 Cocaine dependence, uncomplicated; F17.210 Nicotine dependence, cigarettes, uncomplicated; G47.00 Insomnia, unspecified; R00.1 Bradycardia, unspecified; E87.5 Hyperkalemia; H91.93 Unspecified hearing loss, bilateral; Z86.69 Personal history of other diseases of the nervous system and sense organs; Z59.0 Homelessness
CPT/HCPCS: 36415; 80048; 80053; 81003; 81015; 85027; 86593; 93005; 93010; J0735

== ENCOUNTER 2018-04-01 09:49 | Inpatient (IN) | payer OTHER ==
[2018-04-01 10:27] VITALS: BMI 30.4
--- NOTE | 2018-04-01 11:27 | HP ---
COWS - Scale Resting Pulse: 0= [place] 80 or Below Sweatin= Chills/Flushing Restless Observation: 3= Extraneous Movement Pupil Size: 1= Pupils >than Normal Bone or Joint Aches: 2= Severe Diffuse Aches Runny Nose/ Eye Tearin= Runny Nose/Eyes GI Upset > 30mins: 2= Nausea/Diarrhea Tremor Observation: 1= Tremor [place], Not Seen Yawning Observation: 0= None Anxiety or Irritability: 2=Irritable/Anxious Goose Flesh Skin: 0=Smooth Skin COWS Score: 14 CIWA Score Nausea/Vomitin Muscle Tremors: 2 Anxiety: 4-Mod. Anxious/Guarded Agitation: 4-Moderately Restless Paroxysmal Sweats: 2 Orientation: 0-Oriented Tacttile Disturbances: 0-None Auditory Disturbances: 0-None Visual Disturbances: 0-None Headache: 2-Mild CIWA-Ar Total Score: 17 - Admission Criteria OASAS Guidelines: Admission for Medically Managed Detox: Requires at least one of the followin. CIWA greater than 12 2. Seizures within the past 24 hours 3. Delirium tremens within the past 24 hours 4. Hallucinations within the past 24 hours 5. Acute intervention needed for co occurring medical disorder 6. Acute intervention needed for co occurring psychiatric disorder 7. Severe withdrawal that cannot be handled at a lower level of care (continued vomiting, continued diarrhea, abnormal vital signs) requiring intravenous medication and/or fluids 8. Patient presents the following: CIWA greater than 12, Seizures, delirium tremens or hallucinations in the past 12 hours Admission Criteria Met: Admission criteria met Admission ROS [facility] Allergies/Adverse Reactions: Allergies Allergy/AdvReac Type Severity Reaction Status Date / Time egg Allergy Severe Hives Verified 04/01/18 12:05 No Known Drug Allergies Allergy Verified 04/01/18 12:05 seafood Allergy Severe Difficulty Uncoded 04/01/18 12:05 Breathing History of Present Illness: patient here requesting detox from opiate , benzodiazepine and alcohol use , reports 10 bags/day IVDU x 7-8 years injects in both arms , needles from needle exchange , denies sharing , + re-using , + abscess " a long time ago " , OD , detox x 9 , most recently 4 mo ago at this facility , rehab x 3 at this facility , longest sobriety 90 days through AA 18 mo ago . 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 Exam Limitations: No Limitations - Ebola screening Have you traveled outside of the country in the last 21 days: No Have you had contact with anyone from an Ebola affected area: No Have you been sick,other than usual withdrawal symptoms: No Do you have a fever: No - Review of Systems Constitutional: See HPI EENT: reports: See HPI, Hearing Loss Respiratory: reports: No Symptoms reported Cardiac: reports: No Symptoms Reported GI: reports: Diarrhea, Nausea : reports: No Symptoms Reported Musculoskeletal: reports: Muscle Pain Integumentary: reports: Other (IVDU) Endocrine: reports: No Symptoms Reported Psychiatric: reports: Orientated x3, Agitated, Anxious Patient History - Patient Medical History Hx Anemia: No Hx Asthma: No Hx Chronic Obstructive Pulmonary Disease (COPD): No Hx Cancer: No Hx Cardiac Disorders: No Hx Congestive Heart Failure: No Hx Hypertension: No Hx Hypercholesterolemia: No Hx Pacemaker: No HX Cerebrovascular Accident: No Hx Seizures: Yes (PATIENT REPORTED HAVING SEIZURES FROM WITHDRAWAL DOES NOT RECALL THE DATE.) Hx Dementia: No Hx Diabetes: No Hx Gastrointestinal Disorders: No Hx Liver Disease: Yes (Hep C) Hx Genitourinary Disorders: No Hx Sexually Transmitted Disorders: No Hx Renal Disease (ESRD): No Hx Thyroid Disease: No Hx Human Immunodeficiency Virus (HIV): No (NEGATIVE 05/2017 ) Hx Hepatitis C: Yes (Not treated) Hx Depression: No Hx Suicide Attempt: No Hx Bipolar Disorder: Yes ([place], Seroquel) Hx Schizophrenia: No - Patient Surgical History Past Surgical History: Yes Hx Neurologic Surgery: No Hx Cataract Extraction: No Hx Cardiac Surgery: No Hx Lung Surgery: No Hx Breast Surgery: No Hx Breast Biopsy: No Hx Abdominal Surgery: No Hx Appendectomy: No Hx Cholecystectomy: Yes ( [place] 03/2011) Hx Genitourinary Surgery: No Hx Section: No Hx Orthopedic Surgery: No Other Surgical History: EAR SX BOTH EARS A CHILD-TUBE INSERTION Anesthesia Reaction: No - PPD History Date: 10/09/16 Results: 0 mm - Smoking Cessation Smoking history: Current every day smoker Have you smoked in the past 12 months: Yes Aproximately how many cigarettes per day: 10 Cigars Per Day: 0 Hx Chewing Tobacco Use: No Initiated information on smoking cessation: No - Substances Abused Heroin Route: Injection Frequency: Daily Amount used: 10 bags Age of first use: 30 Date of Last Use: 03/31/18 Alcohol-beer Route: Oral Frequency: 3-6 times per week Amount used: 6-8 (12 oz.) Age of first use: 16 Date of Last Use: 03/31/18 Xanax Route: Oral Frequency: Daily Amount used: 4 mg. Age of first use: 41 Date of Last Use: 03/31/18 Family Disease History - Family Disease History Family Disease History: Diabetes: Father (), Heart Disease: Father, Mother (ashma and emphysema- ), Respiratory: Mother, Other: Brother ( alcoholic) Admission Physical Exam [facility] - Vital Signs Vital Signs: Vital Signs - 24 hr 04/01/18 10:25 Temperature 99.0 F Pulse Rate 71 Respiratory 18 Rate Blood Pressure 139/72 - Physical General Appearance: Yes: Moderate Distress HEENTM: Yes: EOMI, Normocephalic, Normal Voice, Hearing Decreased, Other (poor dentition) Respiratory: Yes: Chest Non-Tender, Lungs Clear, Normal Breath Sounds Neck: Yes: No masses,lesions,Nodules, Trachea in good position Breast: Yes: Breast Exam Deferred Cardiology: Yes: Regular Rhythm, Regular Rate, S1, S2 Abdominal: Yes: Normal Bowel Sounds, Soft Genitourinary: Yes: Within Normal Limits Back: Yes: Normal Inspection Musculoskeletal: Yes: full range of Motion Extremities: Yes: Normal Capillary Refill, Normal Inspection, Tremors Neurological: Yes: Fully Oriented, Alert, Motor Strength 5/5 Integumentary: Yes: Normal Color, Dry, Warm, Track Lang - Diagnostic (1) Alcohol dependence with uncomplicated withdrawal Current Visit: No Status: Acute (2) Nicotine dependence Current Visit: No Status: Chronic Qualifiers: Nicotine product type: cigarettes Substance use status: uncomplicated Qualified Code(s): F17.210 - Nicotine dependence, cigarettes, uncomplicated (3) Opioid dependence Current Visit: No Status: Acute Qualifiers: Substance use status: uncomplicated Qualified Code(s): F11.20 - Opioid dependence, uncomplicated (4) Sedative, hypnotic or anxiolytic dependence with withdrawal, uncomplicated Current Visit: No Status: Acute BHS Breath Alcohol Content Breath Alcohol Content: 0 Urine Drug Screen - Results Drug Screen Negative: No Urine Drug Screen Results: KOLTON-Cocaine, OPI-Opiates, BZO-Benzodiazepines, OXY- Oxycodone, FEN-Fentanyl
[2018-04-01] MEDS ORDERED: MAGNESIUM CITRATE 300 ML BOTTLE PO PRN (11:33)
[2018-04-01] MEDS ORDERED: MAG HYDROX/AL HYDROX/SIMETH 30 ML UNIT-DOSE CUP PO PRN (11:33)
[2018-04-01] MEDS ORDERED: guaiFENesin/D-METHORPHAN HB 10 ML UNIT-DOSE CUPS PO PRN (11:33)
[2018-04-01] MEDS ORDERED: MAGNESIUM HYDROX 2400MG/30ML ORAL SUSPENSION 30 ML CUP PO PRN (11:33)
[2018-04-01] MEDS ORDERED: NICOTINE POLACRILEX 2 MG GUM BUC PRN (11:33)
[2018-04-01] MEDS ORDERED: MENTHOL/PHENOL 1 EACH UD MM PRN (11:33)
[2018-04-01] MEDS ORDERED: P-EPHED 60MG/TRIPROLIDI 2.5MG TABLET PO PRN (11:33)
[2018-04-01] MEDS ORDERED: METHADONE HCL 10 MG TABLET (FOR DETOX USE ONLY) PO ONE (12:45)
[2018-04-01] MEDS: diazePAM 5 MG TABLET PO SCH ×2 (14:48→23:12)
[2018-04-01] MEDS: ACETAMINOPHEN 325 MG TABLET (FP) PO PRN (19:19)
[2018-04-01] MEDS: diazePAM 5 MG TABLET PO PRN (19:21)
[2018-04-01] MEDS: THIAMINE HCL 100 MG TABLET (FP) PO SCH (23:11)
[2018-04-01] MEDS: METHADONE HCL 10 MG TABLET (FOR DETOX USE ONLY) PO ONE ×2 (23:11→23:12)
[2018-04-01] MEDS: MELATONIN 5 MG TABLETS PO PRN (23:12)
[2018-04-02] MEDS: diazePAM 5 MG TABLET PO PRN ×4 (02:18→22:32)
[2018-04-02] MEDS: ACETAMINOPHEN 325 MG TABLET (FP) PO PRN ×3 (02:19→22:34)
[2018-04-02] MEDS: diazePAM 5 MG TABLET PO SCH ×3 (06:02→22:42)
[2018-04-02] MEDS ORDERED: METHADONE HCL 10 MG TABLET (FOR DETOX USE ONLY) PO SCH (10:00)
[2018-04-02] MEDS: ASPIRIN 81 MG CHEWABLE TABLETS PO SCH (10:16)
[2018-04-02] MEDS: PRENATAL VITAMINS W/ FOLIC ACID TABLET (FP) PO SCH (10:16)
[2018-04-02] MEDS: NICOTINE 7 MG/24 HOURS TOPICAL PATCH TD SCH (10:22)
[2018-04-02 10:54] LABS: ALK PHOS 98 U/L (45-117); ANION GAP 6 MMOL/L (8-16); BILIRUBIN,TOTAL 1.1 mg/dL (0.2-1); BLOOD UREA NITROGEN 11 mg/dL (7-18); CALCIUM 9.1 mg/dL (8.5-10.1); CHLORIDE 100 mmol/L (98-107); CO2 30 mmol/L (21-32); GLUCOSE,RANDOM 86 mg/dL (74-106); POTASSIUM 3.9 mmol/L (3.5-5.1); SGOT/AST 51 U/L (15-37); SGPT/ALT 68 U/L (13-61); SODIUM 136 mmol/L (136-145); TOT PROT 7.6 g/dl (6.4-8.2)
[2018-04-02 11:11] LABS: HEMOGLOBIN 13.9 GM/dL (11.7-16.9); MCH 27.9 pg (25.7-33.7); MCHC 33.1 g/dl (32.0-35.9); MEAN CELL VOLUME 84.2 fl (80-96); MEAN PLT VOLUME 8.2 fl (7.5-11.1); PLATELET COUNT 191 K/MM3 (134-434); RBC 4.99 M/mm3 (4.00-5.60); RDW 13.6 % (11.9-15.9); WHITE BLOOD COUNT 5.1 K/mm3 (4.0-10.0)
[2018-04-02] MEDS: IBUPROFEN 400 MG TABLET (FP) PO PRN (17:13)
--- NOTE | 2018-04-02 17:14 | PN ---
[facility] CIWA - CIWA Score Nausea/Vomitin-Mild Nausea/No Vomiting Muscle Tremors: 3 Anxiety: 3 Agitation: 2 Paroxysmal Sweats: 3 Orientation: 0-Oriented Tacttile Disturbances: 0-None Auditory Disturbances: 0-None Visual Disturbances: 0-None Headache: 0-None Present CIWA-Ar Total Score: 12 BHS COWS - Scale Resting Pulse: 0= [place] 80 or Below Sweatin=Flushed/Facial Moisture Restless Observation: 1= Difficult to Sit Still Pupil Size: 0= Normal to Room Light Bone or Joint Aches: 2= Severe Diffuse Aches Runny Nose/ Eye Tearin= Nasal Congestion GI Upset > 30mins: 0= None Tremor Observation of Outstretched Hands: 2= Slight Tremor Visible Yawning Observation: 1= 1-2x During Session Anxiety or Irritability: 1=Feels Anxious/Irritable Goose Flesh Skin: 0=Smooth Skin COWS Score: 10 S Progress Note (SOAP) Subjective: Back pain diarrhea sweats sleep disturbance Objective: 04/02/18 17:12 A & O x 3 ambulates with a cane irritable Vital Signs Temperature 97.7 F 04/02/18 17:07 Pulse Rate 60 04/02/18 17:07 Respiratory Rate 20 04/02/18 17:07 Blood Pressure 125/74 04/02/18 17:07 O2 Sat by Pulse Oximetry (%) Laboratory Last Values WBC 5.1 K/mm3 (4.0-10.0) 04/02/18 05:40 RBC 4.99 M/mm3 (4.00-5.60) 04/02/18 05:40 Hgb 13.9 GM/dL (11.7-16.9) 04/02/18 05:40 Hct 42.0 % (35.4-49) 04/02/18 05:40 MCV 84.2 fl (80-96) 04/02/18 05:40 MCH 27.9 pg (25.7-33.7) 04/02/18 05:40 MCHC 33.1 g/dl (32.0-35.9) 04/02/18 05:40 RDW 13.6 % (11.9-15.9) 04/02/18 05:40 Plt Count 191 K/MM3 (134-434) 04/02/18 05:40 MPV 8.2 fl (7.5-11.1) 04/02/18 05:40 Sodium 136 mmol/L (136-145) 04/02/18 05:40 Potassium 3.9 mmol/L (3.5-5.1) 04/02/18 05:40 Chloride 100 mmol/L (98-107) 04/02/18 05:40 Carbon Dioxide 30 mmol/L (21-32) 04/02/18 05:40 Anion Gap 6 MMOL/L (8-16) L 04/02/18 05:40 BUN 11 mg/dL (7-18) 04/02/18 05:40 Creatinine 1.0 mg/dL (0.55-1.3) 04/02/18 05:40 Creat Clearance w eGFR > 60 (>60) 04/02/18 05:40 Random Glucose 86 mg/dL (74-106) 04/02/18 05:40 Calcium 9.1 mg/dL (8.5-10.1) 04/02/18 05:40 Total Bilirubin 1.1 mg/dL (0.2-1) H 04/02/18 05:40 AST 51 U/L (15-37) H 04/02/18 05:40 ALT 68 U/L (13-61) H 04/02/18 05:40 Alkaline Phosphatase 98 U/L (45-117) 04/02/18 05:40 Total Protein 7.6 g/dl (6.4-8.2) 04/02/18 05:40 Albumin 4.0 g/dl (3.4-5.0) 04/02/18 05:40 labs noted Assessment: 04/02/18 17:13 withdrawal sx Plan: continue detox Flexeril prn for back/hip pain
[2018-04-02] MEDS: CYCLOBENZAPRINE HCL 5 MG TABLET PO SCH (22:31)
[2018-04-02] MEDS: THIAMINE HCL 100 MG TABLET (FP) PO SCH (22:32)
[2018-04-02] MEDS: MELATONIN 5 MG TABLETS PO PRN (22:35)
[2018-04-03] MEDS: diazePAM 5 MG TABLET PO PRN ×4 (03:48→22:09)
[2018-04-03] MEDS: IBUPROFEN 400 MG TABLET (FP) PO PRN ×2 (03:48→13:04)
[2018-04-03] MEDS: CYCLOBENZAPRINE HCL 5 MG TABLET PO SCH ×3 (05:24→22:09)
[2018-04-03] MEDS ORDERED: METHADONE HCL 5 MG TABLET (FOR DETOX USE ONLY) PO SCH (10:00)
[2018-04-03] MEDS: diazePAM 5 MG TABLET PO SCH ×2 (10:25→22:10)
[2018-04-03] MEDS: NICOTINE 7 MG/24 HOURS TOPICAL PATCH TD SCH (10:25)
[2018-04-03] MEDS: PRENATAL VITAMINS W/ FOLIC ACID TABLET (FP) PO SCH (10:25)
[2018-04-03] MEDS: ASPIRIN 81 MG CHEWABLE TABLETS PO SCH (10:25)
--- NOTE | 2018-04-03 13:18 | PN ---
S CIWA - CIWA Score Nausea/Vomitin-No Nausea/No Vomiting Muscle Tremors: 3 Anxiety: 1-Mildly Anxious Agitation: 2 Paroxysmal Sweats: 1-Minimal Palms Moist Orientation: 0-Oriented Tacttile Disturbances: 0-None Auditory Disturbances: 0-None Visual Disturbances: 0-None Headache: 1-Very Mild CIWA-Ar Total Score: 8 S Progress Note (SOAP) Subjective: tremor sweating trouble sleep at night Objective: 04/03/18 13:17 Vital Signs Temperature 98.1 F 04/03/18 09:38 Pulse Rate 52 L 04/03/18 09:38 Respiratory Rate 18 04/03/18 09:38 Blood Pressure 121/76 04/03/18 09:38 O2 Sat by Pulse Oximetry (%) Laboratory Last Values WBC 5.1 K/mm3 (4.0-10.0) 04/02/18 05:40 RBC 4.99 M/mm3 (4.00-5.60) 04/02/18 05:40 Hgb 13.9 GM/dL (11.7-16.9) 04/02/18 05:40 Hct 42.0 % (35.4-49) 04/02/18 05:40 MCV 84.2 fl (80-96) 04/02/18 05:40 MCH 27.9 pg (25.7-33.7) 04/02/18 05:40 MCHC 33.1 g/dl (32.0-35.9) 04/02/18 05:40 RDW 13.6 % (11.9-15.9) 04/02/18 05:40 Plt Count 191 K/MM3 (134-434) 04/02/18 05:40 MPV 8.2 fl (7.5-11.1) 04/02/18 05:40 Sodium 136 mmol/L (136-145) 04/02/18 05:40 Potassium 3.9 mmol/L (3.5-5.1) 04/02/18 05:40 Chloride 100 mmol/L (98-107) 04/02/18 05:40 Carbon Dioxide 30 mmol/L (21-32) 04/02/18 05:40 Anion Gap 6 MMOL/L (8-16) L 04/02/18 05:40 BUN 11 mg/dL (7-18) 04/02/18 05:40 Creatinine 1.0 mg/dL (0.55-1.3) 04/02/18 05:40 Creat Clearance w eGFR > 60 (>60) 04/02/18 05:40 Random Glucose 86 mg/dL (74-106) 04/02/18 05:40 Calcium 9.1 mg/dL (8.5-10.1) 04/02/18 05:40 Total Bilirubin 1.1 mg/dL (0.2-1) H 04/02/18 05:40 AST 51 U/L (15-37) H 04/02/18 05:40 ALT 68 U/L (13-61) H 04/02/18 05:40 Alkaline Phosphatase 98 U/L (45-117) 04/02/18 05:40 Total Protein 7.6 g/dl (6.4-8.2) 04/02/18 05:40 Albumin 4.0 g/dl (3.4-5.0) 04/02/18 05:40 RPR Titer Nonreactive (NONREACTIVE) 04/02/18 05:40 lab noted Assessment: 04/03/18 13:18 withdrawal sx 04/03/18 13:19 insomnia Plan: continue detox trazadone 50 mg po x 1 hs
[2018-04-03] MEDS: ACETAMINOPHEN 325 MG TABLET (FP) PO PRN (17:10)
[2018-04-03] MEDS: THIAMINE HCL 100 MG TABLET (FP) PO SCH (22:09)
[2018-04-04] MEDS: IBUPROFEN 400 MG TABLET (FP) PO PRN (02:52)
[2018-04-04] MEDS: diazePAM 5 MG TABLET PO PRN ×3 (02:52→10:37)
[2018-04-04] MEDS: CYCLOBENZAPRINE HCL 5 MG TABLET PO SCH ×3 (06:01→22:05)
[2018-04-04] MEDS ORDERED: METHADONE HCL 10 MG TABLET (FOR DETOX USE ONLY) PO SCH (10:00)
[2018-04-04] MEDS: PRENATAL VITAMINS W/ FOLIC ACID TABLET (FP) PO SCH (10:36)
[2018-04-04] MEDS: ASPIRIN 81 MG CHEWABLE TABLETS PO SCH (10:36)
[2018-04-04] MEDS: NICOTINE 7 MG/24 HOURS TOPICAL PATCH TD SCH (10:37)
[2018-04-04] MEDS: diazePAM 5 MG TABLET PO SCH ×2 (10:37→22:05)
--- NOTE | 2018-04-04 15:13 | PN ---
BHS Progress Note (SOAP) Subjective: Interrupted Sleep, Sweating, Body Aches, H/A. Objective: PATIENT A & O X 3. IN NO ACUTE DISTRESS. 04/04/18 15:12 Vital Signs Temperature 97.9 F 04/04/18 13:25 Pulse Rate 49 L 04/04/18 13:25 Respiratory Rate 16 04/04/18 13:25 Blood Pressure 129/69 04/04/18 13:25 O2 Sat by Pulse Oximetry (%) Laboratory Tests 04/02/18 04/02/18 04/02/18 05:40 05:40 05:40 WBC 5.1 RBC 4.99 Hgb 13.9 Hct 42.0 MCV 84.2 MCH 27.9 MCHC 33.1 RDW 13.6 Plt Count 191 MPV 8.2 Sodium 136 Potassium 3.9 Chloride 100 Carbon Dioxide 30 Anion Gap 6 L BUN 11 Creatinine 1.0 Creat Clearance w eGFR > 60 Random Glucose 86 Calcium 9.1 Total Bilirubin 1.1 H AST 51 H ALT 68 H Alkaline Phosphatase 98 Total Protein 7.6 Albumin 4.0 RPR Titer Nonreactive LABS NOTED. Assessment: 04/04/18 15:13 WITHDRAWAL SYMPTOMS. Plan: CONTINUE DETOX. INCREASE DAILY PO FLUID INTAKE.
[2018-04-04] MEDS ORDERED: traZODone HCL 50 MG TABLET (FP) PO ONE (22:00)
[2018-04-04] MEDS: THIAMINE HCL 100 MG TABLET (FP) PO SCH (22:05)
[2018-04-05] MEDS ORDERED: METHADONE HCL 5 MG TABLET (FOR DETOX USE ONLY) PO SCH (06:00)
[2018-04-05] MEDS: CYCLOBENZAPRINE HCL 5 MG TABLET PO SCH ×3 (06:24→15:00)
--- NOTE | 2018-04-05 09:10 | DS ---
[facility] Detox Discharge Summary Admission Date: 04/01/18 Discharge Date: 04/05/18 - History Present History: Alcohol Dependence, Cocaine Dependence - Physical Exam Results Vital Signs: Vital Signs Temperature 97.2 F L 04/05/18 07:41 Pulse Rate 58 L 04/05/18 07:41 Respiratory Rate 18 04/05/18 07:41 Blood Pressure 140/80 04/05/18 07:41 O2 Sat by Pulse Oximetry (%) - Treatment Hospital Course: Detox Protocol Followed, Detoxed Safely, Responded well, Discharged Condition Good, Rehab Referral Accepted - Medication Discharge Medications: Ambulatory Orders Aspirin [ASA -] 81 mg PO DAILY tab.chew 09/29/17 - Diagnosis (1) Syncope Current Visit: No Status: Active (2) Alcohol dependence with uncomplicated withdrawal Current Visit: No Status: Acute (3) Bipolar disorder, rapid cycling Current Visit: No Status: Acute (4) Bradycardia Current Visit: No Status: Acute (5) Cocaine dependence, uncomplicated Current Visit: Yes Status: Chronic (6) Drug-induced mood disorder Current Visit: No Status: Acute (7) Drug-induced mood disorder Current Visit: No Status: Acute (8) Insomnia Current Visit: No Status: Acute (9) Intravenous drug user Current Visit: No Status: Acute (10) Mood disorder Current Visit: No Status: Acute (11) Opioid dependence with withdrawal Current Visit: No Status: Acute (12) Positive PPD Current Visit: No Status: Acute (13) QT prolongation Current Visit: No Status: Acute (14) Sedative, hypnotic or anxiolytic dependence with withdrawal, uncomplicated Current Visit: Yes Status: Chronic (15) Alcohol dependence with uncomplicated withdrawal Current Visit: No Status: Chronic (16) Anxiety Current Visit: No Status: Chronic (17) Bradycardia Current Visit: No Status: Chronic (18) GERD (gastroesophageal reflux disease) Current Visit: Yes Status: Chronic Qualifiers: Esophagitis presence: without esophagitis Qualified Code(s): K21.9 - Gastro -esophageal reflux disease without esophagitis (19) Hearing loss in left ear Current Visit: No Status: Chronic Qualifiers: Hearing loss type: unspecified Qualified Code(s): H91.92 - Unspecified hearing loss, left ear (20) Hepatitis C Current Visit: Yes Status: Chronic Qualifiers: Viral hepatitis chronicity: chronic Hepatic coma status: without hepatic coma Qualified Code(s): B18.2 - Chronic viral hepatitis C (21) Nicotine dependence Current Visit: Yes Status: Chronic Qualifiers: Nicotine product type: cigarettes Substance use status: uncomplicated Qualified Code(s): F17.210 - Nicotine dependence, cigarettes, uncomplicated (22) Obesity Current Visit: Yes Status: Chronic Qualifiers: Obesity type: unspecified obesity type Serious obesity comorbidity presence : unspecified whether serious comorbidity present (23) Seizure Current Visit: No Status: Chronic (24) anxiety and depression Current Visit: No Status: Chronic - AMA Did Patient Leave Against Medical Advice: No (referred to [facility])
[2018-04-05] MEDS ORDERED: diazePAM 5 MG TABLET PO SCH (10:00)
[2018-04-05] MEDS: ASPIRIN 81 MG CHEWABLE TABLETS PO SCH (10:36)
[2018-04-05] MEDS: PRENATAL VITAMINS W/ FOLIC ACID TABLET (FP) PO SCH (10:36)
[2018-04-05] MEDS: NICOTINE 7 MG/24 HOURS TOPICAL PATCH TD SCH (10:37)
[2018-04-05 17:27] VITALS: BP 109/63; PULSE 66; TEMP 98.1
== END 2018-04-05 17:46 | disposition other institution (70) | DRG 773 ==
LOC: YASAS 09:49 → Y6N 12:39
PROC: HZ2ZZZZ Detoxification Services for Substance Abuse Treatment (ICD-10-PCS; principal; 2018-04-01)
DX: F11.23 Opioid dependence with withdrawal (principal); F10.230 Alcohol dependence with withdrawal, uncomplicated; F13.230 Sedative, hypnotic or anxiolytic dependence with withdrawal, uncomplicated; F14.20 Cocaine dependence, uncomplicated; F17.210 Nicotine dependence, cigarettes, uncomplicated; F31.9 Bipolar disorder, unspecified; F41.8 Other specified anxiety disorders; F19.24 Other psychoactive substance dependence with psychoactive substance-induced mood disorder; F19.282 Other psychoactive substance dependence with psychoactive substance-induced sleep disorder; G47.00 Insomnia, unspecified; R00.1 Bradycardia, unspecified; B18.2 Chronic viral hepatitis C; H91.92 Unspecified hearing loss, left ear; K21.9 Gastro-esophageal reflux disease without esophagitis; R94.31 Abnormal electrocardiogram [ECG] [EKG]; R76.11 Nonspecific reaction to tuberculin skin test without active tuberculosis; E66.9 Obesity, unspecified; Z68.30 Body mass index [BMI] 30.0-30.9, adult; R26.89 Other abnormalities of gait and mobility; Z99.89 Dependence on other enabling machines and devices; Z86.69 Personal history of other diseases of the nervous system and sense organs; Z59.0 Homelessness
CPT/HCPCS: 36415; 80053; 85027; 86593

== ENCOUNTER 2018-04-05 18:02 | Inpatient (IN) | payer OTHER ==
[2018-04-05] MEDS ORDERED: guaiFENesin/D-METHORPHAN HB 10 ML UNIT-DOSE CUPS PO PRN (19:24)
[2018-04-05] MEDS ORDERED: MAG HYDROX/AL HYDROX/SIMETH 30 ML UNIT-DOSE CUP PO PRN (19:24)
[2018-04-05] MEDS ORDERED: MAGNESIUM HYDROX 2400MG/30ML ORAL SUSPENSION 30 ML CUP PO PRN (19:24)
[2018-04-05] MEDS ORDERED: P-EPHED 60MG/TRIPROLIDI 2.5MG TABLET PO PRN (19:24)
[2018-04-05] MEDS ORDERED: LOPERAMIDE HCL 2 MG CAPSULE PO PRN (19:24)
[2018-04-05] MEDS ORDERED: MENTHOL/PHENOL 1 EACH UD MM PRN (19:24)
--- NOTE | 2018-04-05 19:24 | HP ---
[facility] Rehab Assess/Revision - Admission History Admitted to Rehab from: [facility] - Vital signs Vital Signs: Vital Signs Period Temp Pulse Resp BP Sys/Torres Pulse Ox Last 24 Hr 98 F 65 20 125/74 - Findings Detox History & Physical reviewed: Yes Concur with findings: Yes Inpatient Rehab Admission - Initial Determination Are CD services needed?: Yes - Rehab Admission Criteria Previous failed treatment: Yes Poor recovery environment: Yes
[2018-04-05] MEDS: traZODone HCL 50 MG TABLET (FP) PO SCH (21:38)
[2018-04-05] MEDS: THIAMINE HCL 100 MG TABLET (FP) PO SCH (21:38)
--- NOTE | 2018-04-06 06:43 | HP ---
Psychiatrist Admission - Data Date of interview: 04/06/18 Admission source: 6N Identifying data: This is one of the multiple [facility] Inpatient Rehabilitation admissions for this 42 years old male, father of 2 children, unemployed with no source of income, homeless Medical History: Significant for hepatitis C, hearing impediment since childhood (past history of ear surgery), alcohol withdrawal seizures and history of cholecystectomy (2011). 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 He reported that approximately in 2009 He was brought to [facility] ED due to Cocaine-induced psychotic episode. He was diagnosed with Bipolar Disorder and started on Seroquel and Trazadone. However due to his addiction, he was never consistent with treatment. He describes experiencing hypomanic or manic episode with agitation fast speech, racing thoughts, AH, reckless behavior in the context of drug use. He denied history of previous psychiatric hospitalization or suicidal attempt then. However he told Dr Chopra who recently saw him in detox on 12/13/17 that he has one psychiatric inpatient admisson to [place] in 2011. He reports treatment with Wellbutrin XL, Risperdal, Seroquel, klonopin and Trazadone in the past but claims he has not taking for over a year. Reports experiencing priapism with Trazadone. When he saw Dr Chopra last november, he ws only prescribed Ambien 10 mg po HS. Denies previous suicidal attempt. At present reports feeling depressed, anxious and sleeping poorly Physical/Sexual Abuse/Trauma History: Denies history of emotional, physical or sexual abuse as wel as DV relationship. No service Additional Comment: Reports history of a few previous misdemeanor arrests. No probation currently Vital Signs: Vital Signs - 24 hr 04/05/18 04/06/18 04/06/18 18:32 00:30 03:30 Temperature 98 F Pulse Rate 65 Respiratory 20 18 18 Rate Blood Pressure 125/74 Allergies/Adverse Reactions: Allergies Allergy/AdvReac Type Severity Reaction Status Date / Time egg Allergy Severe Hives Verified 04/01/18 12:05 No Known Drug Allergies Allergy Verified 04/01/18 12:05 seafood Allergy Severe Difficulty Uncoded 04/01/18 12:05 Breathing Date of last physical exam: 04/01/18 Concur with the findings of this exam: Yes - Substance Abuse/Tx History Hx Alcohol Use: Yes Hx Substance Use: Yes Substance Use Type: Alcohol (Started drinking alcohol at age 16, consumes 6-8x 12oz of beer daily. Last drank on 03/31/18), Tranquilizers (Started using xanax at age 41, consumes 4 mg/day. Last used on 03/31/18) Hx Substance Use Treatment: Yes (19 previous inpt detox & 7 inpt rehab admissions @ [facility]) Mental Status Exam - Mental Status Exam Alert and Oriented to: Time Cognitive Function: Fair Patient Appearance: Disheveled Mood: Depressed, Anxious Affect: Appropriate Patient Behavior: Cooperative Speech Pattern: Clear Voice Loudness: Normal Thought Process: Intact, Goal Oriented Hallucinations: Denies Suicidal Ideation: Denies Homicidal Ideation: Denies Insight/Judgement: Fair Sleep: Poorly Appetite: Fair Muscle strength/Tone: Normal Gait/Station: Normal Psychiatric Findings - Problem List (Pinch 1, 2,3) (1) Alcohol dependence Current Visit: Yes Status: Acute (2) Sedative hypnotic or anxiolytic dependence Current Visit: Yes Status: Acute (3) Opioid dependence Current Visit: Yes Status: Acute (4) Nicotine dependence Current Visit: No Status: Chronic Qualifiers: Nicotine product type: cigarettes Substance use status: uncomplicated Qualified Code(s): F17.210 - Nicotine dependence, cigarettes, uncomplicated (5) Bipolar disorder Current Visit: Yes Status: Chronic (6) Substance induced mood disorder Current Visit: Yes Status: Acute (7) Substance-induced sleep disorder Current Visit: Yes Status: Acute (8) Hepatitis C Current Visit: No Status: Chronic Qualifiers: Viral hepatitis chronicity: chronic Hepatic coma status: without hepatic coma Qualified Code(s): B18.2 - Chronic viral hepatitis C (9) Alcohol withdrawal seizure Current Visit: Yes Status: Resolved - Initial Treatment Plan Initial Treatment Plan: 1) Discontinue Trazadone 50 mg po HS ordered by [facility]ILY [facility]UCATOR. 2 ) Start Belsomra 10 mg po HS prn for insomnia. 3) Monitor progress
[2018-04-06] MEDS: ASPIRIN 81 MG CHEWABLE TABLETS PO SCH (09:51)
[2018-04-06] MEDS: NICOTINE 21 MG/24 HOURS TOPICAL PATCH TD SCH (09:51)
[2018-04-06] MEDS: PRENATAL VITAMINS W/ FOLIC ACID TABLET (FP) PO SCH (09:51)
[2018-04-06] MEDS: IBUPROFEN 400 MG TABLET (FP) PO PRN ×2 (09:52→21:07)
--- NOTE | 2018-04-06 11:41 | HP ---
COWS - Scale Resting Pulse: 0= UT 80 or Below Sweatin= Chills/Flushing Restless Observation: 0= Sits Still Pupil Size: 0= Normal to Room Light Bone or Joint Aches: 4=Acute Joint/Muscle Pain Runny Nose/ Eye Tearin= None GI Upset > 30mins: 0= None Tremor Observation: 0= None Yawning Observation: 0= None Anxiety or Irritability: 2=Irritable/Anxious Goose Flesh Skin: 0=Smooth Skin COWS Score: 7 CIWA Score - Admission Criteria [facility] Guidelines: Admission for Medically Managed Detox: Requires at least one of the followin. CIWA greater than 12 2. Seizures within the past 24 hours 3. Delirium tremens within the past 24 hours 4. Hallucinations within the past 24 hours 5. Acute intervention needed for co occurring medical disorder 6. Acute intervention needed for co occurring psychiatric disorder 7. Severe withdrawal that cannot be handled at a lower level of care (continued vomiting, continued diarrhea, abnormal vital signs) requiring intravenous medication and/or fluids 8. Admission ROS [facility] Chief Complaint: REQUESTING TO GET BACK ON SUBOXONE AND HAS SEVERE CRAVINGS NOW. Allergies/Adverse Reactions: Allergies Allergy/AdvReac Type Severity Reaction Status Date / Time egg Allergy Severe Hives Verified 04/01/18 12:05 No Known Drug Allergies Allergy Verified 04/01/18 12:05 seafood Allergy Severe Difficulty Uncoded 04/01/18 12:05 Breathing History of Present Illness: PT REPORTS HE IS ON SUBOXONE BELOW BUT LAST TOOK IT 10-14 DAYS AGO BECAUSE WAS USING HEROIN INTRAVENOUSLY. PT REPORTS HE WENT TO HIS DOCTOR ON THE 03/31/18 AND DISCUSSED POSSIBILITY OF GOING INTO DETOX AND REHAB DUE TO HIS RELAPSE. PT STATES HE PICKED UP HIS SCRIPTS BELOW AND BROUGHT IT TO DETOX ON THE 04/01/18 AND IN [facility] ON ADMISSION. PT REPORTS HE TAKES SUBOXONE 8MG/2MG SL TID. PT COMPLETED DETOX YESTERDAY AND RECEIVED LAST 5 MG OF METHADONE X 1 AND REFERRED TO REHAB. PT STATES HE WILL BE GOING BACK TO [facility] WITH [facility] AFTER REHAB TREATMENT. PT CURRENTLY C/O CRAVINGS, IRRITABILITY, BODY ACHES, DIARRHEA, HEADACHE. DENIES NAUSEA OR VOMITING. Others' Prescriptions Patient Name: Neftali Stanton Date: 1975 Address: [address] [address] Sex: Male Rx Written Rx Dispensed Drug Quantity Days Supply Prescriber Name 03/30/2018 04/01/2018 suboxone 8 mg-2 mg sl film 45 15 Morgan Sahu MD 03/02/2018 03/02/2018 suboxone 8 mg-2 mg sl film 90 30 Morgan Sahu MD 02/16/2018 02/16/2018 suboxone 8 mg-2 mg sl film 30 15 Morgan Sahu MD Patient Name: Neftali Stanton Date: 1975 Address: [address] [address] Sex: Male Rx Written Rx Dispensed Drug Quantity Days Supply Prescriber Name 01/12/2018 01/12/2018 chlordiazepoxide 25 mg capsule 12 5 Jannette Collado NP 01/12/2018 01/12/2018 buprenorphine-naloxone 2-0.5 mg sl tablet 28 30 Jannette Collado NP Patient Name: Neftali Stanton Date: 1975 Address: [address] [place] [address] Sex: Male Rx Written Rx Dispensed Drug Quantity Days Supply Prescriber Name 01/03/2018 01/04/2018 zubsolv 5.7-1.4 mg tablet sl 10 10 LakGume clancy MD 12/27/2017 12/28/2017 zubsolv 1.4-0.36 mg tablet sl 14 14 LakGume clancy MD 12/23/2017 12/24/2017 zubsolv 0.7-0.18 mg tablet sl 8 4 LaksGume MD 12/22/2017 12/22/2017 zubsolv 0.7-0.18 mg tablet sl 6 6 LaksGume MD * - Drugs marked with an asterisk are compound drugs. If the compound drug is made up of more than one controlled substance, then each controlled substance will be a separate row in the table. Click the Report Suspicious Activity button to report information related to controlled substance suspicious activity to the [place] [employer]. Click the Send Questions/Comments button to send questions about this report to the [place] [employer], or call . Click the Substance Abuse Treatment Information button to go to the Office of Alcoholism and Substance Abuse Services website, www.oasas.[place].gov or call 1- 428.878.2028. 2017 [place] Department of Health - [place] [employer] 04/06/2018 11: 39:19 . . Exam Limitations: No Limitations - Ebola screening Have you traveled outside of the country in the last 21 days: No (N) Have you had contact with anyone from an Ebola affected area: No Do you have a fever: No - Review of Systems Constitutional: Chills, Night Sweats EENT: reports: Nose Congestion GI: reports: Diarrhea Musculoskeletal: reports: Joint Pain, Muscle Pain Neuro: reports: Headache Psychiatric: reports: Orientated x3, Agitated, Anxious Other Systems: Reviewed and Negative Patient History - Patient Medical History Hx Anemia: No Hx Asthma: No Hx Chronic Obstructive Pulmonary Disease (COPD): No Hx Cancer: No Hx Cardiac Disorders: No Hx Congestive Heart Failure: No Hx Hypertension: No Hx Hypercholesterolemia: No Hx Pacemaker: No HX Cerebrovascular Accident: No Hx Seizures: No Hx Dementia: No Hx Diabetes: No Hx Gastrointestinal Disorders: No Hx Liver Disease: Yes (Hep C) Hx Genitourinary Disorders: No Hx Sexually Transmitted Disorders: No Hx Renal Disease (ESRD): No Hx Thyroid Disease: No Hx Human Immunodeficiency Virus (HIV): No (NEGATIVE 05/2017 ) Hx Hepatitis C: Yes (Not treated) Hx Depression: No Hx Suicide Attempt: No Hx Bipolar Disorder: Yes ([place], Seroquel) Hx Schizophrenia: No - Patient Surgical History Past Surgical History: Yes Hx Neurologic Surgery: No Hx Cataract Extraction: No Hx Cardiac Surgery: No Hx Lung Surgery: No Hx Breast Surgery: No Hx Breast Biopsy: No Hx Abdominal Surgery: No Hx Appendectomy: No Hx Cholecystectomy: Yes ( [place] 03/2011) Hx Genitourinary Surgery: No Hx Section: No Hx Orthopedic Surgery: No Other Surgical History: EAR SX BOTH EARS A CHILD-TUBE INSERTION Anesthesia Reaction: No - PPD History Previous Implant?: No Documented Results: Positive w/proof Implanted On Prior R Admission?: No PPD to be Administered?: No - Reproductive History Patient is a Female of Child Bearing Age (11 -55 yrs old): No Patient : (Male) - Smoking Cessation Smoking history: Current every day smoker Have you smoked in the past 12 months: Yes Aproximately how many cigarettes per day: 10 Cigars Per Day: 0 Hx Chewing Tobacco Use: No Initiated information on smoking cessation: Yes 'Breaking Loose' booklet given: 04/01/18 - Substance & Tx. History Hx Alcohol Use: Yes Hx Substance Use: Yes Substance Use Type: Alcohol, Cocaine, Heroin, Tranquilizers - Substances Abused Alcohol Route: Oral Frequency: 3-6 times per week Amount used: 6 pack of beers and 1 pint vodka Age of first use: 16 Date of Last Use: 03/31/18 Alprazolam (Xanax) Route: Oral Frequency: 1-3 times last 30 days Amount used: $40 Age of first use: 37 Date of Last Use: 03/30/18 Heroin Route: Injection Frequency: Daily Amount used: $70 Age of first use: 30 Date of Last Use: 03/31/18 Family Disease History - Family Disease History Family Disease History: Diabetes: Father (), Heart Disease: Father, Mother (ashma and emphysema- ), Respiratory: Mother, Other: Brother ( alcoholic) Admission Physical Exam S - Vital Signs Vital Signs: Vital Signs - 24 hr 04/05/18 04/06/18 04/06/18 18:32 00:30 03:30 Temperature 98 F Pulse Rate 65 Respiratory 20 18 18 Rate Blood Pressure 125/74 04/06/18 06:55 Temperature 97.8 F Pulse Rate 55 L Respiratory 16 Rate Blood Pressure 127/78 - Physical General Appearance: Yes: Irritable, Anxious HEENTM: Yes: EOMI, Normocephalic, ADELA, Pharynx Normal Integumentary: Yes: Track Lang - Addiitonal Findings: START SUBOXONE 4MG/1 MG PO X 1 TODAY REEVALUATE IN A.M AND INCREASE TO REGULAR SCHEDULE OF 8MG/2MG SL TID. - Diagnostic (1) Encounter for monitoring Suboxone maintenance therapy Current Visit: Yes Status: Chronic BHS Breath Alcohol Content Breath Alcohol Content: 0
[2018-04-06] MEDS ORDERED: BUPRENORPHINE/NALOXONE 2 MG/0.5 MG FILM PACKET SL ONE (15:38)
[2018-04-06] MEDS: traZODone HCL 50 MG TABLET (FP) PO SCH (21:07)
[2018-04-06] MEDS: THIAMINE HCL 100 MG TABLET (FP) PO SCH (21:07)
[2018-04-06] MEDS: MELATONIN 5 MG TABLETS PO PRN (21:07)
[2018-04-06] MEDS: SUVOREXANT 10 MG TABLET PO PRN (21:09)
[2018-04-07] MEDS ORDERED: BUPRENORPHINE/NALOXONE 8 MG/2 MG FILM PACKET SL ONE (09:00)
[2018-04-07] MEDS: NICOTINE 21 MG/24 HOURS TOPICAL PATCH TD SCH (09:56)
[2018-04-07] MEDS: ASPIRIN 81 MG CHEWABLE TABLETS PO SCH (09:56)
[2018-04-07] MEDS: PRENATAL VITAMINS W/ FOLIC ACID TABLET (FP) PO SCH (09:56)
[2018-04-07] MEDS: IBUPROFEN 400 MG TABLET (FP) PO PRN ×2 (14:06→21:08)
[2018-04-07] MEDS: NICOTINE POLACRILEX 4 MG GUM BUC PRN (14:08)
[2018-04-07] MEDS: ACETAMINOPHEN 325 MG TABLET (FP) PO PRN (17:35)
[2018-04-07] MEDS: BUPRENORPHINE/NALOXONE 8 MG/2 MG FILM PACKET SL SCH (17:36)
[2018-04-07] MEDS: traZODone HCL 50 MG TABLET (FP) PO SCH (21:07)
[2018-04-07] MEDS: THIAMINE HCL 100 MG TABLET (FP) PO SCH (21:07)
[2018-04-07] MEDS: MELATONIN 5 MG TABLETS PO PRN (21:07)
[2018-04-07] MEDS: SUVOREXANT 10 MG TABLET PO PRN (21:09)
[2018-04-08] MEDS: IBUPROFEN 400 MG TABLET (FP) PO PRN ×3 (05:55→21:11)
[2018-04-08] MEDS: BUPRENORPHINE/NALOXONE 8 MG/2 MG FILM PACKET SL SCH ×2 (05:56→17:36)
[2018-04-08] MEDS: ASPIRIN 81 MG CHEWABLE TABLETS PO SCH (09:50)
[2018-04-08] MEDS: PRENATAL VITAMINS W/ FOLIC ACID TABLET (FP) PO SCH (09:50)
[2018-04-08] MEDS: NICOTINE 21 MG/24 HOURS TOPICAL PATCH TD SCH (09:51)
[2018-04-08] MEDS: NICOTINE POLACRILEX 4 MG GUM BUC PRN (09:51)
--- NOTE | 2018-04-08 10:33 | PN ---
S Progress Note Note: Patient complains of sleeping poorly despite taking Trazadone 50 mg po HS and Belsomra 10 mg po HS prn for insomnia. Requests increase in Belsomra dosage. Belsomra is increased to 15 mg po HS prn for insomnia
[2018-04-08] MEDS: ACETAMINOPHEN 325 MG TABLET (FP) PO PRN (17:56)
[2018-04-08] MEDS: MELATONIN 5 MG TABLETS PO PRN (21:10)
[2018-04-08] MEDS: SUVOREXANT 15 MG TABLET PO PRN (21:10)
[2018-04-08] MEDS: traZODone HCL 50 MG TABLET (FP) PO SCH (21:10)
[2018-04-08] MEDS: THIAMINE HCL 100 MG TABLET (FP) PO SCH (21:10)
[2018-04-09] MEDS: IBUPROFEN 400 MG TABLET (FP) PO PRN (06:41)
[2018-04-09] MEDS: BUPRENORPHINE/NALOXONE 8 MG/2 MG FILM PACKET SL SCH ×2 (06:43→17:48)
[2018-04-09] MEDS: PRENATAL VITAMINS W/ FOLIC ACID TABLET (FP) PO SCH (09:46)
[2018-04-09] MEDS: ASPIRIN 81 MG CHEWABLE TABLETS PO SCH (09:46)
[2018-04-09] MEDS: ACETAMINOPHEN 325 MG TABLET (FP) PO PRN (09:47)
[2018-04-09] MEDS: NICOTINE 21 MG/24 HOURS TOPICAL PATCH TD SCH (09:47)
[2018-04-09] MEDS: hydrOXYzine PAMOATE 50 MG CAPSULE (FP) PO PRN ×2 (12:36→21:16)
[2018-04-09] MEDS: traZODone HCL 50 MG TABLET (FP) PO SCH (21:16)
[2018-04-09] MEDS: THIAMINE HCL 100 MG TABLET (FP) PO SCH (21:16)
[2018-04-09] MEDS: SUVOREXANT 15 MG TABLET PO PRN (22:46)
[2018-04-10] MEDS: IBUPROFEN 400 MG TABLET (FP) PO PRN ×3 (00:43→21:11)
[2018-04-10] MEDS: BUPRENORPHINE/NALOXONE 8 MG/2 MG FILM PACKET SL SCH ×2 (06:01→17:35)
[2018-04-10] MEDS: PRENATAL VITAMINS W/ FOLIC ACID TABLET (FP) PO SCH (09:50)
[2018-04-10] MEDS: ACETAMINOPHEN 325 MG TABLET (FP) PO PRN (09:50)
[2018-04-10] MEDS: ASPIRIN 81 MG CHEWABLE TABLETS PO SCH (09:50)
[2018-04-10] MEDS: hydrOXYzine PAMOATE 50 MG CAPSULE (FP) PO PRN ×3 (09:50→21:11)
[2018-04-10] MEDS: NICOTINE 21 MG/24 HOURS TOPICAL PATCH TD SCH (09:51)
[2018-04-10] MEDS: SUVOREXANT 15 MG TABLET PO PRN (21:10)
[2018-04-10] MEDS: THIAMINE HCL 100 MG TABLET (FP) PO SCH (21:10)
[2018-04-10] MEDS: traZODone HCL 50 MG TABLET (FP) PO SCH (21:10)
[2018-04-11] MEDS: BUPRENORPHINE/NALOXONE 8 MG/2 MG FILM PACKET SL SCH ×2 (06:23→17:45)
[2018-04-11] MEDS: hydrOXYzine PAMOATE 50 MG CAPSULE (FP) PO PRN ×2 (09:43→14:30)
[2018-04-11] MEDS: PRENATAL VITAMINS W/ FOLIC ACID TABLET (FP) PO SCH (09:43)
[2018-04-11] MEDS: IBUPROFEN 600 MG TABLET (FP) PO PRN ×2 (09:43→22:30)
[2018-04-11] MEDS: CYCLOBENZAPRINE HCL 10 MG TABLET (FP) PO PRN ×2 (09:43→22:28)
[2018-04-11] MEDS: ASPIRIN 81 MG CHEWABLE TABLETS PO SCH (09:43)
[2018-04-11] MEDS: NICOTINE 21 MG/24 HOURS TOPICAL PATCH TD SCH (09:44)
[2018-04-11] MEDS: ACETAMINOPHEN 325 MG TABLET (FP) PO PRN (14:30)
[2018-04-11] MEDS: THIAMINE HCL 100 MG TABLET (FP) PO SCH (22:28)
[2018-04-11] MEDS: traZODone HCL 50 MG TABLET (FP) PO SCH (22:28)
[2018-04-11] MEDS ORDERED: SUVOREXANT 15 MG TABLET PO PRN (22:29)
[2018-04-12] MEDS: BUPRENORPHINE/NALOXONE 8 MG/2 MG FILM PACKET SL SCH ×2 (06:59→17:32)
[2018-04-12] MEDS: CYCLOBENZAPRINE HCL 10 MG TABLET (FP) PO PRN (09:59)
[2018-04-12] MEDS: PRENATAL VITAMINS W/ FOLIC ACID TABLET (FP) PO SCH (09:59)
[2018-04-12] MEDS: NICOTINE 21 MG/24 HOURS TOPICAL PATCH TD SCH (10:00)
[2018-04-12] MEDS: IBUPROFEN 600 MG TABLET (FP) PO PRN ×2 (10:00→21:07)
[2018-04-12] MEDS: ASPIRIN 81 MG CHEWABLE TABLETS PO SCH (10:00)
[2018-04-12] MEDS: hydrOXYzine PAMOATE 50 MG CAPSULE (FP) PO PRN ×2 (12:26→21:06)
[2018-04-12] MEDS: ACETAMINOPHEN 325 MG TABLET (FP) PO PRN (12:26)
[2018-04-12] MEDS: MAGNESIUM CITRATE 300 ML BOTTLE PO PRN (17:32)
[2018-04-12] MEDS: THIAMINE HCL 100 MG TABLET (FP) PO SCH (21:06)
[2018-04-12] MEDS: traZODone HCL 50 MG TABLET (FP) PO SCH (21:06)
[2018-04-12] MEDS: MELATONIN 5 MG TABLETS PO PRN (21:06)
[2018-04-12] MEDS: SUVOREXANT 15 MG TABLET PO PRN (21:07)
[2018-04-13] MEDS: BUPRENORPHINE/NALOXONE 8 MG/2 MG FILM PACKET SL SCH ×2 (06:36→17:29)
[2018-04-13] MEDS: NICOTINE 21 MG/24 HOURS TOPICAL PATCH TD SCH (10:04)
[2018-04-13] MEDS: PRENATAL VITAMINS W/ FOLIC ACID TABLET (FP) PO SCH (10:04)
[2018-04-13] MEDS: IBUPROFEN 600 MG TABLET (FP) PO PRN ×2 (10:04→21:15)
[2018-04-13] MEDS: ASPIRIN 81 MG CHEWABLE TABLETS PO SCH (10:04)
[2018-04-13] MEDS: ACETAMINOPHEN 325 MG TABLET (FP) PO PRN (12:26)
[2018-04-13] MEDS: hydrOXYzine PAMOATE 50 MG CAPSULE (FP) PO PRN ×2 (12:26→21:14)
[2018-04-13] MEDS: SUVOREXANT 15 MG TABLET PO PRN (21:12)
[2018-04-13] MEDS: traZODone HCL 50 MG TABLET (FP) PO SCH (21:14)
[2018-04-13] MEDS: THIAMINE HCL 100 MG TABLET (FP) PO SCH (21:14)
[2018-04-13] MEDS: CYCLOBENZAPRINE HCL 10 MG TABLET (FP) PO PRN (21:14)
[2018-04-14] MEDS ORDERED: BUPRENORPHINE/NALOXONE 8 MG/2 MG FILM PACKET SL ONE (09:49)
[2018-04-14] MEDS: ASPIRIN 81 MG CHEWABLE TABLETS PO SCH (10:11)
[2018-04-14] MEDS: NICOTINE 21 MG/24 HOURS TOPICAL PATCH TD SCH (10:11)
[2018-04-14] MEDS: PRENATAL VITAMINS W/ FOLIC ACID TABLET (FP) PO SCH (10:11)
[2018-04-14] MEDS: CYCLOBENZAPRINE HCL 10 MG TABLET (FP) PO PRN ×2 (10:12→21:11)
[2018-04-14] MEDS: IBUPROFEN 600 MG TABLET (FP) PO PRN (10:13)
[2018-04-14] MEDS: MAGNESIUM CITRATE 300 ML BOTTLE PO PRN (12:56)
[2018-04-14] MEDS: ACETAMINOPHEN 325 MG TABLET (FP) PO PRN (17:28)
[2018-04-14] MEDS: hydrOXYzine PAMOATE 50 MG CAPSULE (FP) PO PRN (17:28)
[2018-04-14] MEDS: BUPRENORPHINE/NALOXONE 8 MG/2 MG FILM PACKET SL SCH (17:28)
[2018-04-14] MEDS: THIAMINE HCL 100 MG TABLET (FP) PO SCH (21:09)
[2018-04-14] MEDS: traZODone HCL 50 MG TABLET (FP) PO SCH (21:09)
[2018-04-14] MEDS: SUVOREXANT 15 MG TABLET PO PRN (21:10)
[2018-04-14] MEDS: MELATONIN 5 MG TABLETS PO PRN (21:11)
[2018-04-15] MEDS: BUPRENORPHINE/NALOXONE 8 MG/2 MG FILM PACKET SL SCH ×2 (06:12→17:34)
[2018-04-15] MEDS: ACETAMINOPHEN 325 MG TABLET (FP) PO PRN ×2 (06:12→14:26)
[2018-04-15] MEDS: CYCLOBENZAPRINE HCL 10 MG TABLET (FP) PO PRN ×2 (09:58→21:03)
[2018-04-15] MEDS: IBUPROFEN 600 MG TABLET (FP) PO PRN (09:58)
[2018-04-15] MEDS: NICOTINE 21 MG/24 HOURS TOPICAL PATCH TD SCH (09:59)
[2018-04-15] MEDS: PRENATAL VITAMINS W/ FOLIC ACID TABLET (FP) PO SCH (09:59)
[2018-04-15] MEDS: ASPIRIN 81 MG CHEWABLE TABLETS PO SCH (09:59)
[2018-04-15] MEDS: THIAMINE HCL 100 MG TABLET (FP) PO SCH (21:01)
[2018-04-15] MEDS: traZODone HCL 50 MG TABLET (FP) PO SCH (21:01)
[2018-04-15] MEDS: SUVOREXANT 15 MG TABLET PO PRN (21:03)
[2018-04-16] MEDS: BUPRENORPHINE/NALOXONE 8 MG/2 MG FILM PACKET SL SCH ×2 (06:03→17:25)
[2018-04-16] MEDS: PRENATAL VITAMINS W/ FOLIC ACID TABLET (FP) PO SCH (09:47)
[2018-04-16] MEDS: ASPIRIN 81 MG CHEWABLE TABLETS PO SCH (09:48)
[2018-04-16] MEDS: NICOTINE 21 MG/24 HOURS TOPICAL PATCH TD SCH (09:48)
[2018-04-16] MEDS: CYCLOBENZAPRINE HCL 10 MG TABLET (FP) PO PRN ×4 (09:49→22:11)
[2018-04-16] MEDS: hydrOXYzine PAMOATE 50 MG CAPSULE (FP) PO PRN ×3 (09:49→21:10)
[2018-04-16] MEDS: IBUPROFEN 600 MG TABLET (FP) PO PRN (14:36)
[2018-04-16] MEDS: traZODone HCL 50 MG TABLET (FP) PO SCH ×2 (21:06→22:03)
[2018-04-16] MEDS: THIAMINE HCL 100 MG TABLET (FP) PO SCH ×2 (21:06→22:03)
[2018-04-16] MEDS: MELATONIN 5 MG TABLETS PO PRN (21:10)
[2018-04-16] MEDS: SUVOREXANT 15 MG TABLET PO PRN (22:10)
[2018-04-17] MEDS: BUPRENORPHINE/NALOXONE 8 MG/2 MG FILM PACKET SL SCH ×2 (06:25→17:17)
[2018-04-17] MEDS: NICOTINE 21 MG/24 HOURS TOPICAL PATCH TD SCH (09:44)
[2018-04-17] MEDS: PRENATAL VITAMINS W/ FOLIC ACID TABLET (FP) PO SCH (09:44)
[2018-04-17] MEDS: ASPIRIN 81 MG CHEWABLE TABLETS PO SCH (09:44)
[2018-04-17] MEDS: hydrOXYzine PAMOATE 50 MG CAPSULE (FP) PO PRN ×2 (09:46→15:02)
[2018-04-17] MEDS: CYCLOBENZAPRINE HCL 10 MG TABLET (FP) PO PRN ×3 (09:46→21:08)
[2018-04-17] MEDS: ACETAMINOPHEN 325 MG TABLET (FP) PO PRN (15:02)
[2018-04-17] MEDS: THIAMINE HCL 100 MG TABLET (FP) PO SCH (21:06)
[2018-04-17] MEDS: traZODone HCL 50 MG TABLET (FP) PO SCH (21:06)
[2018-04-17] MEDS: SUVOREXANT 15 MG TABLET PO PRN (21:07)
[2018-04-17] MEDS: MELATONIN 5 MG TABLETS PO PRN (21:08)
[2018-04-18] MEDS: BUPRENORPHINE/NALOXONE 8 MG/2 MG FILM PACKET SL SCH ×2 (06:35→18:19)
[2018-04-18] MEDS: PRENATAL VITAMINS W/ FOLIC ACID TABLET (FP) PO SCH (10:07)
[2018-04-18] MEDS: NICOTINE 21 MG/24 HOURS TOPICAL PATCH TD SCH (10:08)
[2018-04-18] MEDS: hydrOXYzine PAMOATE 50 MG CAPSULE (FP) PO PRN ×2 (10:09→21:12)
[2018-04-18] MEDS: CYCLOBENZAPRINE HCL 10 MG TABLET (FP) PO PRN ×2 (10:09→21:11)
[2018-04-18] MEDS: ASPIRIN 81 MG CHEWABLE TABLETS PO SCH (13:06)
[2018-04-18] MEDS: traZODone HCL 50 MG TABLET (FP) PO SCH (21:11)
[2018-04-18] MEDS: THIAMINE HCL 100 MG TABLET (FP) PO SCH (21:11)
[2018-04-18] MEDS: MELATONIN 5 MG TABLETS PO PRN (21:12)
[2018-04-18] MEDS ORDERED: SUVOREXANT 10 MG TABLET PO PRN ×2 (21:41→21:58)
[2018-04-18] MEDS ORDERED: SUVOREXANT 15 MG TABLET PO PRN (22:16)
[2018-04-19] MEDS: BUPRENORPHINE/NALOXONE 8 MG/2 MG FILM PACKET SL SCH (06:02)
[2018-04-19 06:45] VITALS: BP 129/75; PULSE 55; TEMP 97.4
--- NOTE | 2018-04-19 08:32 | PN ---
[facility] Progress Note Note: PT COMPLETED REHAB. PT WAS REFERRED TO [facility] TO CONTINUE AFTERCARE TREATMENT. PT WILL ALSO FOLLOW UP WITH PMD FOR SUBOXONE TREATMENT MAINTENANCE. REPORTS HE IS GOING TO HIS PMD, [facility] TODAY AFTER LEAVING REHAB. PT DOES NOT NEED RX, HAS OWN SUBOXONE. Vital Signs - 24 hr 04/19/18 04/19/18 04/19/18 00:30 03:30 06:44 Temperature 97.4 F L Pulse Rate 55 L Respiratory 18 18 18 Rate Blood Pressure 129/75 NAD PLAN:FOLLOW UP WITH PMD TODAY PLANNED. FOLLOW UP WITH [facility] FOR AFTERCARE.
[2018-04-19] MEDS: NICOTINE 21 MG/24 HOURS TOPICAL PATCH TD SCH (09:34)
[2018-04-19] MEDS: PRENATAL VITAMINS W/ FOLIC ACID TABLET (FP) PO SCH (09:34)
[2018-04-19] MEDS: ASPIRIN 81 MG CHEWABLE TABLETS PO SCH (09:34)
== END 2018-04-19 09:45 | disposition home or self-care (01) | DRG 772 ==
LOC: YASAS 18:02 → Y5N 18:03
PROVIDERS: ADMIT Psychiatry & Neurology Psychiatry; ATTEND Psychiatry & Neurology Psychiatry
PROC: HZ42ZZZ Group Counseling for Substance Abuse Treatment, Cognitive-Behavioral (ICD-10-PCS; principal; 2018-04-05)
DX: F10.20 Alcohol dependence, uncomplicated (principal); F11.20 Opioid dependence, uncomplicated; F13.20 Sedative, hypnotic or anxiolytic dependence, uncomplicated; F17.210 Nicotine dependence, cigarettes, uncomplicated; F31.9 Bipolar disorder, unspecified; F19.24 Other psychoactive substance dependence with psychoactive substance-induced mood disorder; B18.2 Chronic viral hepatitis C; Z86.69 Personal history of other diseases of the nervous system and sense organs; Z91.013 Allergy to seafood; Z91.012 Allergy to eggs; Z59.0 Homelessness